=== PATIENT | male | born 1950 | race Caucasian/White ===

== ENCOUNTER 2016-06-29 12:34 | Inpatient (IN) ==
[2016-06-29] MEDS ORDERED: methylPREDNISolone SOD SUC 125 MG/2 ML VIAL IV STA (13:12)
[2016-06-29 13:35] LABS: Hematocrit 41.1 VOL% (42.0-52.0); Hemoglobin 14.3 GM/DL (14.0-18.0); Red Blood Count 4.49 MC/CUMM (3.8-5.5); White Blood Count 9.9 T/CUMM (4-12)
[2016-06-29 13:36] LABS: Basophils # 0.1 10*3/uL (0.0-0.2); Basophils % 0.8 % (0.0-0.8); Eosinophils # 0.5 10*3/uL (0.0-0.87); Eosinophils % 4.8 % (0.00-10.9); Immature Granulocytes % 0.4 %; Immature Granulocytes Absolute 0.04 #; Lymphocytes # 2.2 10*3/uL (1.4-4.0); Lymphocytes % 22.1 % (21.2-54.2); Mean Corpuscular HGB Conc 34.8 GM/DL (32-36); Mean Corpuscular Hemoglobin 32 PG (27-34); Mean Corpuscular Volume 91.5 FL (87-102); Mean Platelet Volume 9.2 FL (9.6-12.0); Monocytes % 10.1 % (1.7-12.7); Neutrophils # 6.1 10*3/uL (1.4-7.4); Neutrophils % 61.8 % (38.7-73.9); Platelet Count 269 T/CUMM (130-400); Red Cell Distribution Width 12.7 % (9.3-17.3)
--- NOTE | 2016-06-29 13:40 | CT Report ---
Referring physician: Garrison Richardson Exam: CT brain without contrast Date: June 29, 2016 Comparison: None Reason: Weakness The patient is an Emergency Department patient on June 29, 2016. Technique: Axial images of the head were obtained without the use of contrast. Total DLP was 914.6 mGy*cm. Findings: There is mild generalized cerebral atrophy/volume loss. A punctate cortical calcification is also noted at the right frontal lobe. No hydrocephalus or midline shift is present. There is no evidence of recent intracranial hemorrhage, abnormal mass effect or an acute infarction. No acute osseous process is seen. There is mild mucosal thickening within the left frontoethmoidal recess, ethmoid air cells, left sphenoid sinus and right maxillary sinus. The mastoid air cells are clear. Impression: 1. No acute intracranial process is identified. 2. Mild sinus disease. The CT exam was performed using one or more of the following dose reduction techniques: Automated exposure control and adjustment of the mA and/or kV according to patient size. PROCEDURE INTERPRETED AT [facility] DEPARTMENT OF RADIOLOGY Final Report Signed by: Dr. Martha Khalil
--- NOTE | 2016-06-29 13:41 | XRay Report ---
History short of breath Chest, 2 views Comparison 01/06/2010 The heart is mildly enlarged. Mediastinal and hilar contours unchanged There is slight increase in diffuse bilateral interstitial prominence without more focal consolidation. Vague symmetric nipple shadows again seen. Chronic right rib fracture again seen Impression: Slight increasing diffuse bilateral interstitial infiltrates versus edema. PROCEDURE INTERPRETED AT [facility] DEPARTMENT OF RADIOLOGY Final Report Signed by: Dr. Leonila Subramanian
[2016-06-29 14:05] LABS: Alanine Aminotransferase 21 U/L (16-61); Albumin 4.3 G/DL (3.4-5.0); Alkaline Phosphatase 92 U/L (45-117); Aspartate Amino Transferase 33 U/L (0-37); Bilirubin,Total < 0.39 MG/DL (0.2-1.0); Blood Urea Nitrogen 12 MG/DL (7-18); Calcium 9.6 MG/DL (8.5-10.1); Glucose 98 MG/DL (74-106); Osmolality,Calculated 252.4 MOS/KG (273-304); Sodium 126 MMOL/L (136-145); Total Protein 7.2 G/DL (6.4-8.3)
[2016-06-29] MEDS: ALBUTEROL 2.5 MG/3 ML NEB RESP TX SCH ×3 (14:05→14:42)
[2016-06-29 14:10] LABS: Troponin I Only 0.048 NG/ML (0.00-0.045)
--- NOTE | 2016-06-29 14:18 | EKG Report ---
Stationary ECG Study [facility] ER Test Date: 06/29/2016 2:16:40 PM Pat Name: MILA MIKE Department: Room: 223 Gender: M School Secretary: : 1950 Requested by: Garrison Sosa Order Number: [id number] Reading MD: ZAC MARRERO Intervals [place] Rate: 60 P: 60 MO: 238 QRS: -33 QRSD: 86 T: 55 QT: 410 QTc: 410 Interpretive Statements SINUS RHYTHM WITH PROLONGED MO INTERVAL MARKED LEFT AXIS DEVIATION ANTEROSEPTAL MYOCARDIAL INFARCTION, OF INDETERMINATE AGE Electronically Signed On 07-02-16 15:01:00 CDT by ZAC MARRERO [email or web address]
[2016-06-29] MEDS ORDERED: methylPREDNISolone SOD SUC 125 MG/2 ML VIAL ONE (14:46)
[2016-06-29 15:20] LABS: Apearance,Urine CLEAR (Clear); Bilirubin,Urine Negative (Negative); Blood, Urine Negative (Negative); Glucose,Urine (UA) Negative (Negative); Ketones,Urine Negative (Negative); Nitrite,Urine Negative (Negative); Protein,Urine Negative; RBC,Urine <1 /HPF (0-4); Urine Color Straw (Yellow); Urine Specific Gravity 1.004 (1.001-1.035); Urine Urobilinogen < 2.0 EU/DL (0.2-1.0)
--- NOTE | 2016-06-29 15:29 | Emergency Department Note ---
IJessica Hilary, am scribing for, and in the presence of, Ilya Richardson MD 13:19. IDylan Doug C, MD, personally performed the services described in this documentation, ascribed by Alexandria Lopez in my presence, and it is both accurate and complete 529 . Arrival - Arrival Chief Complaint: Non-Specific Stated Complaint: thinks pt may have had a stroke ED Nursing Triage Note: C/O BEING EVALUATED BY DR. HILL EARLIER TODAY., STATES told them to bring patient here to be evaluated by ED doctor to r/o CVA, Weakness for the last month, states got worse over the last week., denies having slurred speech, states his legs are weak bilateral , states his legs are hurting bilateral and his upper right arm is hurting , patient states he forgets alot., denies having slurred speech, he is having " slow thinking which is unusual for him" Mode of Arrival: Wheelchair Limitations: No Limitations Source: Patient, RN Notes Reviewed Time Seen by Provider: 06/29/16 13:12 - History of Present Illness HPI Narrative: Patient is a 66-year-old white male who presents to the emergency room complaining of weakness. Patient told me this been going on for the past month and is diffusely present. He does have some difficulty with his balance and his daughter says when he bends forward he tends to fall forward. Patient denies any lateralizing weakness or paresthesias and he denies any headaches or vision changes though he states his vision is bad in both his eyes. He says he does have a history of cataracts. Is not having any nausea or vomiting. He lives independently and takes care of himself and has been able to take care of his personal affairs. He states his daughter does bring him supper most every day and she does cook breakfast for him frequently. Onset (ago): week(s) Consistency: constant Severity: moderate Quality: aching Allergies/Adverse Reactions: Allergies Allergy/AdvReac Type Severity Reaction Status Date / Time No Known Allergies Allergy Verified 06/29/16 12:46 Home Medications: Home Medications Medication Instructions Recorded Confirmed Type Albuterol Sulfate [Ventolin Hfa] 90 gm IH BID 06/18/14 06/29/16 History Aspirin [Children's Aspirin] 81 mg PO DAILY 06/18/14 06/29/16 History Budesonide/Formoterol 160-4.5 2 puff INH BID 06/18/14 06/29/16 History [Symbicort 160-4.5] Diclofenac 1% Gel [Voltaren Gel] 1 applic TOP PRN PRN 06/18/14 06/29/16 History Losartan/Hydrochlorothiazide 1 each PO DAILY 06/18/14 06/29/16 History [Losartan-Hctz 100-25 mg Tab] Magnesium Chloride [Magnesium Dr] 64 mg PO BID 06/18/14 06/29/16 History NIFEdipine XL TAB [Procardia Xl] 60 mg PO BEDTIME 06/18/14 06/29/16 History PARoxetine [Paxil] 20 mg PO DAILY 06/18/14 06/29/16 History Rosuvastatin Calcium [Crestor] 5 mg PO DAILY 06/18/14 06/29/16 History clonazePAM [Clonazepam] 0.5 mg PO TID 06/18/14 06/29/16 History Albuterol/Ipratropium Neb [Duoneb] 3 ml RESP TX RT Q4H 06/29/16 06/29/16 History Indomethacin Cap [Indocin Cap] 25 mg PO QID PRN 06/29/16 06/29/16 History Metoprolol Tartrate Tab [Lopressor 25 mg PO DAILY 06/29/16 06/29/16 History Tab] Potassium Chloride 10 meq PO BID 06/29/16 06/29/16 History Theophylline ER Tab (24 Hr) 400 mg PO DAILY 06/29/16 06/29/16 History Review of System - Review of System 12 point system: reviewed and no additional remarkable complaints except as stated - Review of System Constitutional: Present: weakness (Generalized weakness) Eyes: Present: vision change (has cataracts) Respiratory: Present: wheezing (Nebulizer and breathing treatments at home) Cardiovascular: Present: chest pain (Discomfort) Musculoskeletal: Present: other (Arthritis, Gout) Neurological: Present: weakness (bilaterally in legs and arms), confusion ( forgetting things), other (Falling over when he bends down) Medical,Surgical,& Family Hx - Medical History Cardio: History of: Cardiac Dysrhythmia, Hypertension Psychological: History of: Anxiety Disorders Neurology: No history of: Seizures HEENT: History of: Eye Problem (CANNT SEE UP CLOSE) Rheumatology: History of;: Rheumatoid Arthritis (HANDS AND KNEES) Respiratory: History of: Asthma, Bronchitis, COPD, Respiratory Problems ( EMPHYZEMA) Musculoskeletal: History of: Back/Neck Problems, Musculoskeletal Problems ( NEUROPATHY) Hematology: History of: Anemia No history of: Blood Transfusion Reaction - Surgical History Cardiac Surgeries: Sugical HX of: Cardiac Catheterization (DR HILL) Abdominal Surgeries: Surgical HX of: Colonoscopy, EGD Orthopedic Surgeries: Surgical HX of;: Total Knee Replacement (RIGHT) - Family History Family History: Reports;: Family Cancer (AUNT), Family Diabetes (2 SISTERS), Family Heart Disease (PARENTS), Family Hypertension (PARENTS), Family Stroke ( SISTER) - Social History Smoking Status: Smoker, status unknown Frequency of Alcohol Use: None Type of Drug Use: None Exam Vital Signs: Vital Signs Temperature 97.5 F L 06/29/16 13:38 Pulse Rate 66 06/29/16 14:05 Respiratory Rate 20 06/29/16 14:05 Blood Pressure 146/61 06/29/16 13:38 O2 Sat by Pulse Oximetry 98 06/29/16 14:05 - General General appearance: alert, in no apparent distress - Head Head exam: Present: atraumatic, normocephalic - Eye Eye exam: Present: normal appearance, PERRL, EOMI - ENT ENT exam: Present: normal exam, normal oropharynx, mucous membranes moist. Absent: mucous membranes dry - Neck Neck exam: Present: full ROM, trachea midline. Absent: tenderness - Respiratory Respiratory exam: Present: wheezes (Bilaterally). Absent: normal lung sounds bilaterally - Cardiovascular Cardiovascular exam: Present: regular rate, normal rhythm, normal heart sounds. Absent: murmur, rubs, gallop - Abdominal Exam Abdominal exam: Present: soft, normal bowel sounds. Absent: distention - Extremities Exam Extremities exam: Present: full ROM. Absent: tenderness - Back Exam Back exam: Present: full ROM. Absent: tenderness - Neurological Exam Neurological exam: Present: alert, oriented X3, CN II-XII intact. Absent: motor sensory deficit - Psychiatric Psychiatric exam: Present: normal affect, normal mood - Skin Skin exam: Present: warm, dry, intact, normal color Course Course Narrative: Patient persisted having extra wheezes after 3 nebulized albuterol treatments. Patient was feeling much better but still dyspneic at rest. I discussed his clinical presentation and findings with Lj who is covering the hospitalist service. He will be evaluated here in the emergency room for hospitalization. Results - Labs CBC & BMP: 06/29/16 13:25 06/29/16 13:25 Lab Results: I have reviewed the patients labs Labs: Laboratory Tests 06/29/16 06/29/16 13:25 13:25 WBC 9.9 RBC 4.49 Hgb 14.3 Hct 41.1 L MPV 9.2 L Crawford # (Auto) 1.0 H Sodium 126 L Potassium 4.0 Chloride 92 L Carbon Dioxide 26 Calculated Osmolality 252.4 L Troponin I 0.048 H - EKG EKG results: interpreted by BESSIE, sinus rhythm (60 bpm), no acute changes - Diagnostic Findings Procedure: Chest x-ray: report reviewed by me (Slight increasing diffuse bilateral interstitial infiltrates versus edema), CT: report reviewed by me ( Head: 1. No acute intracranial process is identitfied. 2. Mild sinus disease) Disposition Clinical Impression: COPD exacerbation, Tobacco abuse Case discussed with: patient, patient's family Disposition: Still a Patient Condition: Stable Time of Disposition: 15:29
[2016-06-29] MEDS ORDERED: DICLOFENAC 1% GEL 100 GM TUBE TOP PRN (16:51)
[2016-06-29] MEDS ORDERED: INDOMETHACIN 25 MG CAPSULE PO PRN (16:51)
--- NOTE | 2016-06-29 17:02 | Hospitalist History & Physical ---
<Elena Marquez - Last Filed: 06/29/16 16:48> Assessment and Plan - Time spent with patient Time spent with patient: Greater than 30 minutes (1) Hypertension Status: Acute Assessment and plan: 66-year-old white male with history of asbestosis, hypertension, COPD, anxiety and depression admitted with COPD exacerbation and hyponatremia. Patient is being admitted by Dr. Leone from hospital medicine. Dr. Shabazz will be consulted from pulmonary as he is covering for Dr. Ramesh this weekend. Hypertension--we will restart patient's home meds. His blood pressure is normal at this time we will continue to monitor it. Hyponatremia--patient has normal kidney function. He does have pulmonary edema , Lasix has been started. His hyponatremia should improve with diuresis. Anxiety and depression--we will restart patient's home meds COPD exacerbation--patient will be started on antibiotics, Lasix, breathing treatments and steroids. Repeat an x-ray in the morning and adjust as needed. Elevated troponins--get another EKG in the morning and serial troponins. Will consult cardiology if needed. Patient is asymptomatic at this time. Tobacco abuse--patient have a nicotine patch and smoking cessation has been discussed with the patient All this is been discussed with Dr. Leone. Further recommendations to follow. Current Visit: Yes (2) Anxiety Status: Acute Current Visit: Yes (3) Hyponatremia with decreased serum osmolality Status: Acute Current Visit: Yes (4) COPD exacerbation Status: Acute Current Visit: Yes (5) Tobacco abuse Status: Acute Current Visit: Yes (6) Elevated troponin Status: Acute Current Visit: Yes History of Present Illness Chief complaint: Shortness of breath and weakness History of present illness: Mr. Sanon is a 66 year old male with history of hypertension, COPD, hyperlipidemia, and asbestosis presenting to the ED from Dr. Penn's office with shortness of breath and weakness. Patient states he has been feeling weak in the legs for the last several months that seems to be worsening over time. He has been falling a lot lately but he denies any injury. He also states that he has been having some chest pressure but none today. And bilateral upper and lower extremity generalized pain. Patient's family doctor is Dr. Mane and he sent patient to be evaluated by Dr. Penn who is his prototyper. Dr. Penn was the one who sent him to the ED for evaluation. They are wanting to rule out problems with his heart and CVA. Patient is also being followed by Dr. Ramesh and pulmonology for his asbestosis. Patient denies headache, dysphasia, chest pain, abdominal pain, constipation, diarrhea, or lower extremity edema. Patient's chest x-ray showing increasing diffuse bilateral interstitial infiltrates versus edema. His EKG is showing sinus rhythm with prolonged AK interval and a marked left left axis deviation with an anteroseptal myocardial infarction of indeterminate age. CT of his head showing no acute intracranial process with mild sinus disease. Upon exam patient is using accessory muscles for breathing. He is barrel chested and a pack a day smoker. He does have rales and expiratory wheeze bilaterally. His white count is normal but he is hyponatremic with a sodium of 126. He also has an elevated troponin of 0.048. I have discussed the patient's case with Dr. Ilya Richardson the ED physician and Dr. Leone the attending hospitalist. Patient is being admitted with COPD exacerbation and elevated troponins. Home Medications Medication Instructions Recorded Confirmed Type Albuterol Sulfate [Ventolin Hfa] 90 gm IH BID 06/18/14 06/29/16 History Aspirin [Children's Aspirin] 81 mg PO DAILY 06/18/14 06/29/16 History Budesonide/Formoterol 160-4.5 2 puff INH BID 06/18/14 06/29/16 History [Symbicort 160-4.5] Diclofenac 1% Gel [Voltaren Gel] 1 applic TOP PRN PRN 06/18/14 06/29/16 History Losartan/Hydrochlorothiazide 1 each PO DAILY 06/18/14 06/29/16 History [Losartan-Hctz 100-25 mg Tab] Magnesium Chloride [Magnesium Dr] 64 mg PO BID 06/18/14 06/29/16 History NIFEdipine XL TAB [Procardia Xl] 60 mg PO BEDTIME 06/18/14 06/29/16 History PARoxetine [Paxil] 20 mg PO DAILY 06/18/14 06/29/16 History Rosuvastatin Calcium [Crestor] 5 mg PO DAILY 06/18/14 06/29/16 History clonazePAM [Clonazepam] 0.5 mg PO TID 06/18/14 06/29/16 History Albuterol/Ipratropium Neb [Duoneb] 3 ml RESP TX RT Q4H 06/29/16 06/29/16 History Indomethacin Cap [Indocin Cap] 25 mg PO QID PRN 06/29/16 06/29/16 History Metoprolol Tartrate Tab [Lopressor 25 mg PO DAILY 06/29/16 06/29/16 History Tab] Potassium Chloride 10 meq PO BID 06/29/16 06/29/16 History Theophylline ER Tab (24 Hr) 400 mg PO DAILY 06/29/16 06/29/16 History Allergies Allergy/AdvReac Type Severity Reaction Status Date / Time No Known Allergies Allergy Verified 06/29/16 12:46 Medical,Surgical,& Family Hx - Medical History Cardio: History of: Cardiac Dysrhythmia, Hypertension Psychological: History of: Anxiety Disorders Neurology: No history of: Seizures HEENT: History of: Eye Problem (CANNT SEE UP CLOSE) Rheumatology: History of;: Rheumatoid Arthritis (HANDS AND KNEES) Respiratory: History of: Asthma, Bronchitis, COPD, Respiratory Problems ( EMPHYZEMA) Musculoskeletal: History of: Back/Neck Problems, Musculoskeletal Problems ( NEUROPATHY) Hematology: History of: Anemia No history of: Blood Transfusion Reaction - Surgical History Cardiac Surgeries: Sugical HX of: Cardiac Catheterization (DR PENN) Abdominal Surgeries: Surgical HX of: Colonoscopy, EGD Orthopedic Surgeries: Surgical HX of;: Total Knee Replacement (RIGHT) - Family History Family History: Reports;: Family Cancer (AUNT), Family Diabetes (2 SISTERS), Family Heart Disease (PARENTS), Family Hypertension (PARENTS), Family Stroke ( SISTER) - Social History Smoking Status: Smoker, status unknown Frequency of Alcohol Use: None Type of Drug Use: None Marital Status: Lives With:: Alone Functional capacity: independent ambulation Review of systems: Complete 10 system review of systems was obtained and pertinent negatives and positives are in HPI Exam - Constitutional Vitals: Period Temp Pulse Resp BP Sys/Moe Pulse Ox Last 24 Hr 97.5 F 60 18 146/61 98 Exam: 66-year-old pleasant white male, no acute distress, alert and oriented Daughter and granddaughter are present Constitutional System: No distress. No tremulousness. Head: Normocephalic, atraumatic. Ears, Nose and Throat System: No evidence of Otitis or Mastoiditis. No epistaxis or discharge Eyes System: Pupils equal, round, and reactive. Extraocular muscles intact. Neck: Supple, without adenopathy, No jugular venous distention. No thyromegaly, neck mass, or prior surgery apparent. Respiratory System: Chest bilateral rails and expiratory wheeze to auscultation. Cardiovascular System: Heart with regular rate and rhythm. 2/6 murmur. GI System: Abdomen soft, nontender. Normo active bowel sounds present. Musculoskeletal System: limbs with minimal pedal edema of left ankle. Full distal pulses. Neurological System: No discernable sensory deficit. No aphasia Psychiatric System: Conversation is rational Results - Labs CBC & BMP: 06/29/16 13:25 06/29/16 13:25 Lab Results: I have reviewed the past 24 hour labs - EKG EKG results: sinus rhythm - Diagnostic Findings Procedure: Chest x-ray: report reviewed by me (Slight increasing diffuse bilateral interstitial infiltrates versus edema) <Mu Leone - Last Filed: 06/29/16 18:09> History of Present Illness History of present illness: Patient seen and examined with JULIO Marquez. Agree with history, assessment and plan as documented. Patient reports that he already feels a little better. Will treat for COPD exacerbation, pna and volume overload. Exam - Constitutional Vitals: Period Temp Pulse Resp BP Sys/Moe Pulse Ox Last 24 Hr 97.1 F-97.5 F 60-73 18-20 146-147/61-62 98-99 Results - Labs CBC & BMP: 06/29/16 13:25 06/29/16 13:25
[2016-06-29] MEDS: LOSARTAN/HCTZ 50-12.5 MG TABLET PO SCH (17:09)
[2016-06-29] MEDS: PARoxetine 20 MG TABLET PO SCH (17:09)
[2016-06-29] MEDS: ASPIRIN CHEW 81 MG TABLET PO SCH (17:09)
[2016-06-29] MEDS: METOPROLOL TARTRATE 25 MG TABLET PO SCH (17:09)
[2016-06-29] MEDS: ROSUVASTATIN 10 MG TABLET PO SCH (17:09)
[2016-06-29] MEDS: THEOPHYLLINE ER (24 HR) 400 MG TABLET PO SCH (17:10)
[2016-06-29] MEDS ORDERED: methylPREDNISolone SOD SUC 40 MG/1 ML VIAL IV SCH (17:30)
[2016-06-29] MEDS: FUROSEMIDE 40 MG/4 ML VIAL IV SCH (17:44)
[2016-06-29 17:53] LABS: CKMB % 1.9 %; Troponin I Only 0.042 NG/ML (0.00-0.045)
[2016-06-29] MEDS: methylPREDNISolone SOD SUC 40 MG/1 ML VIAL IV SCH (17:58)
[2016-06-29] MEDS: ALBUTEROL/IPRATROPIUM 3 ML NEB RESP TX SCH ×2 (20:03→23:48)
[2016-06-29 20:47] LABS: CKMB % 1.8 %
[2016-06-29 20:48] LABS: Troponin I Only 0.049 NG/ML (0.00-0.045)
[2016-06-29] MEDS: POTASSIUM CHLORIDE 10 MEQ TABLET PO SCH (20:58)
[2016-06-29] MEDS: BUDESONIDE/FORMOTEROL 160-4.5 INHALER 6 GM INH SCH (20:58)
[2016-06-29] MEDS: MAGNESIUM CHLORIDE 64 MG TABLET PO SCH (20:58)
[2016-06-29] MEDS: clonazePAM 0.5 MG TABLET PO SCH (20:58)
[2016-06-29] MEDS ORDERED: ALBUTEROL 2.5 MG/3 ML NEB RESP TX SCH (21:00)
[2016-06-30 00:10] LABS: CKMB % 1.7 %; Troponin I Only 0.041 NG/ML (0.00-0.045)
[2016-06-30] MEDS: methylPREDNISolone SOD SUC 40 MG/1 ML VIAL IV SCH ×3 (02:09→18:33)
[2016-06-30 03:25] LABS: Eosinophils % 0.1 % (0.00-10.9); Hematocrit 38.8 VOL% (42.0-52.0); Hemoglobin 13.4 GM/DL (14.0-18.0); Immature Granulocytes % 0.5 %; Immature Granulocytes Absolute 0.04 #; Lymphocytes # 0.8 10*3/uL (1.4-4.0); Lymphocytes % 10.1 % (21.2-54.2); Mean Corpuscular HGB Conc 34.5 GM/DL (32-36); Mean Corpuscular Hemoglobin 32 PG (27-34); Mean Corpuscular Volume 91.7 FL (87-102); Mean Platelet Volume 9.3 FL (9.6-12.0); Monocytes # 0.2 10*3/uL (0.11-0.8); Monocytes % 2.7 % (1.7-12.7); Neutrophils # 6.4 10*3/uL (1.4-7.4); Neutrophils % 86.6 % (38.7-73.9); Platelet Count 271 T/CUMM (130-400); Red Blood Count 4.23 MC/CUMM (3.8-5.5); Red Cell Distribution Width 12.8 % (9.3-17.3); White Blood Count 7.4 T/CUMM (4-12)
[2016-06-30] MEDS: ALBUTEROL/IPRATROPIUM 3 ML NEB RESP TX SCH ×6 (04:21→23:51)
--- NOTE | 2016-06-30 08:18 | EKG Report ---
Stationary ECG Study [facility] Test Date: 06/30/2016 8:19:01 AM Pat Name: MILA MIKE Department: Room: 223 Gender: M Power Regulator: ANTONINA : 1950 Requested by: Elena Marquez Order Number: [id number] Reading MD: ROSEANN VELEZ Intervals [place] Rate: 86 P: 68 [place]: 214 QRS: -19 QRSD: 86 T: 52 QT: 343 QTc: 386 Interpretive Statements SINUS RHYTHM WITH PROLONGED [place] INTERVAL SEPTAL MYOCARDIAL INFARCTION, OF INDETERMINATE AGE Electronically Signed On 07-02-16 16:31:32 CDT by ROSEANN VELEZ [email or web address]
[2016-06-30] MEDS: FUROSEMIDE 40 MG/4 ML VIAL IV SCH ×2 (08:32→15:25)
[2016-06-30] MEDS: THEOPHYLLINE ER (24 HR) 400 MG TABLET PO SCH (08:32)
[2016-06-30] MEDS: ASPIRIN CHEW 81 MG TABLET PO SCH (08:33)
[2016-06-30] MEDS: clonazePAM 0.5 MG TABLET PO SCH ×3 (08:33→20:37)
[2016-06-30] MEDS: METOPROLOL TARTRATE 25 MG TABLET PO SCH (08:33)
[2016-06-30] MEDS: ROSUVASTATIN 10 MG TABLET PO SCH (08:33)
[2016-06-30] MEDS: LOSARTAN/HCTZ 50-12.5 MG TABLET PO SCH (08:33)
[2016-06-30] MEDS: PARoxetine 20 MG TABLET PO SCH (08:33)
[2016-06-30] MEDS: NICOTINE 21 MG/24 HR PATCH TRANSDERM SCH (08:34)
[2016-06-30] MEDS: MAGNESIUM CHLORIDE 64 MG TABLET PO SCH ×2 (08:34→20:36)
[2016-06-30] MEDS: POTASSIUM CHLORIDE 10 MEQ TABLET PO SCH ×2 (08:34→20:37)
[2016-06-30] MEDS: BUDESONIDE/FORMOTEROL 160-4.5 INHALER 6 GM INH SCH ×2 (08:36→20:37)
--- NOTE | 2016-06-30 08:48 | XRay Report ---
XR chest 2V Indication: Shortness of breath. Chest 2 views: Comparison yesterday shows stable mild reticular prominence of the lungs. No focal pneumonia shown. Pleural spaces remain clear. Heart size is normal with continued thoracic aortic tortuosity. Healing posterior right rib fracture dimension. Impression: No significant change. PROCEDURE INTERPRETED AT [facility] [place] DEPARTMENT OF RADIOLOGY Final Report Signed by: Salvatore Yates M.D.
--- NOTE | 2016-06-30 09:23 | Pulmonology Consult Note ---
History of Present Illness Chief complaint: Asbestosis. COPD with bronchospastic disease History of present illness: Mr. Sanon is a 66 year old white male whom I been asked to see in pulmonary consultation for evaluation and treatment. This patient is usually followed by Dr. Salvatore Ramesh who will take over his case on 07/02/2016. Patient was seen along with a female family member whom I think is his daughter. This patient appears to have an element of dementia. He is not a very good historian. The female family member who was present was of some help. Patient is also followed by Dr. Amari Penn. Biggest problem is been problems with the patient's balance she says she has been having some falls. His daughter says when he bends over and stands up that he falls and sometimes he nearly passes out. He has a chronic cough and dyspnea on exertion and this is about the same as usual, perhaps a little worse. He does not know what kind of sputum he is coughed up. He has not aware of any hemoptysis. Patient denies dysphagia or reflux. As best I can tell he has had no cardiac angina palpitations. He has not had anything that sounds like TIAs. Patient says he has trouble with his coordination. I asked him to be have any trouble lighting his cigarettes and he said no The remainder of the review of systems is negative. Allergies. None Home medicines. See below. Past history. Patient had a right pulmonary nodule that Dr. Tamia Hanson followed in the past. This was stable for several years on his CT scans of his chest. He has a history of asbestosis COPD bronchospastic disease. There is a history of cardiac rhythm high blood pressure and anxiety. Patient says he has rheumatoid arthritis in his hands and knees. He has a history of anemia. He had a history of a right total knee replacement. He has had a previous cardiac catheterization by Dr. Amari Penn. Social history this patient is a smoker who continues to smoke at least one pack of cigarettes per. He says he does not use alcohol. 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 He is a . Family history. Aunt had cancer 2 sisters had diabetes both parents had heart disease and high blood pressure. A sister had a stroke. Chest x-ray. 06/30/2016. Heart size is normal. Pulmonary arteries are upper limits of normal. Both hilar areas contain benign calcification. There is interstitial scarring superior to both hilar areas. Mediastinum is normal. Lung malloy show some scattered areas of alveolar filling and scarring in the right upper lung and the right lower lung and to a lesser degree in the left lower lung. There is an element of hyperinflation. I see no bony abnormality CT of the head. 06/29/2016. Generalized cortical atrophy with volume loss. No other abnormalities are seen. EKG. Regular sinus rhythm. Borderline first-degree AV block. Left anterior hemiblock. Poor anterior R-wave progression in V1, V2 and V3. Probable old anterior LA. No acute changes are noted. Lab. White count 7486.6 segs and 10 lymphs. Platelets are 271,000. H&H is 13.4/38.8 with normal indices and normal red blood cell distribution with. Sodium is low at 126. Potassium is 4.0 chloride is low at 92. Creatinine is 1.0. BUN is 12. Serum osmolality is low at 252. Liver function tests are normal CPK is elevated at 341. Troponins are negative. Protein albumin and globulin are normal. Urine shows no abnormalities. Home medicines. See below. Note the patient gets 25 mg of hydrochlorothiazide daily. He is on theophylline 400 mg once a day. Hospital medicines. See below. O2 sats on FiO2 28% have been measured at 93%, 96% and 99%. Physical exam. Vital signs. See below Psychiatric oriented. Terrible historian. Probably has an element of dementia. Face is symmetrical. Lips tongue. To be normal. Salivary glands are normal. Neck. Symmetrical with no masses. Thyroid was not palpated. Lymphatics. No submandibular cervical supraclavicular or epitrochlear adenopathy. Chest. Symmetrical. Barrel-shaped. Expiration is prolonged and he has end expiratory wheezes with congestion and forced expiration produces a cough. No chest wall tenderness. Heart. Regular at about 70 bpm. I cannot hear a murmur rub or gallop. Abdomen. Liver edge feels normal. No other organs were palpated. There was no tenderness. I heard bowel sounds. Extremities. No clubbing. Previous right total knee replaced Venous exam. Neck and upper extremities are normal. Slight tenderness with posterior pressure over both calves. Neurologic. Cranial nerves are intact with decreased hearing acuity. Long track motor functions intact. Gait was not tested. Sensory exam was not done. The remainder the physical exam is noncontributory. Impression. 1. COPD with bronchitis and bronchospasm 2. Tobacco abuse. 3. History of asbestosis. I did not see a lot of evidence of this on his chest x-ray 4. Multiple falls and poor coordination. Etiology undetermined. Look for orthostatic hypotension and other possibilities. Note hyponatremia 5. Hyponatremia with sodium of 126. Suspect this is related to diuretics. Consider other causes such as Joseph's disease 6. History of heart disease and history of cardiac arrhythmias 7. See past history Plan. 1. Cortrosyn stimulation test 2. Theophylline level 3. Sputum for Gram stain culture and sensitivity 4. Rocephin for bronchitis 5. Echocardiogram 6. Doppler venograms of lower extremities 7. ABGs on room 8. Inhalation therapy with DuoNeb's 4 times daily 9. See orders. BMP and a Home Medications Medication Instructions Recorded Confirmed Type Albuterol Sulfate [Ventolin Hfa] 90 gm IH BID 06/18/14 06/29/16 History Aspirin [Children's Aspirin] 81 mg PO DAILY 06/18/14 06/29/16 History Budesonide/Formoterol 160-4.5 2 puff INH BID 06/18/14 06/29/16 History [Symbicort 160-4.5] Diclofenac 1% Gel [Voltaren Gel] 1 applic TOP PRN PRN 06/18/14 06/29/16 History Losartan/Hydrochlorothiazide 1 each PO DAILY 06/18/14 06/29/16 History [Losartan-Hctz 100-25 mg Tab] Magnesium Chloride [Magnesium Dr] 64 mg PO BID 06/18/14 06/29/16 History NIFEdipine XL TAB [Procardia Xl] 60 mg PO BEDTIME 06/18/14 06/29/16 History PARoxetine [Paxil] 20 mg PO DAILY 06/18/14 06/29/16 History Rosuvastatin Calcium [Crestor] 5 mg PO DAILY 06/18/14 06/29/16 History clonazePAM [Clonazepam] 0.5 mg PO TID 06/18/14 06/29/16 History Albuterol/Ipratropium Neb [Duoneb] 3 ml RESP TX RT Q4H 06/29/16 06/29/16 History Indomethacin Cap [Indocin Cap] 25 mg PO QID PRN 06/29/16 06/29/16 History Metoprolol Tartrate Tab [Lopressor 25 mg PO DAILY 06/29/16 06/29/16 History Tab] Potassium Chloride 10 meq PO BID 06/29/16 06/29/16 History Theophylline ER Tab (24 Hr) 400 mg PO DAILY 06/29/16 06/29/16 History Allergies Allergy/AdvReac Type Severity Reaction Status Date / Time No Known Allergies Allergy Verified 06/29/16 12:46 Exam (Pulmonay) H&P - Constitutional Vitals: Period Temp Pulse Resp BP Sys/Moe Pulse Ox Last 24 Hr 97.1 F-98.8 F 60-82 18-22 109-147/57-68 93-100 Medical,Surgical,& Family Hx - Medical History Cardio: History of: Cardiac Dysrhythmia, Hypertension Psychological: History of: Anxiety Disorders Neurology: No history of: Seizures HEENT: History of: Eye Problem (CANNT SEE UP CLOSE) Rheumatology: History of;: Rheumatoid Arthritis (HANDS AND KNEES) Respiratory: History of: Asthma, Bronchitis, COPD, Respiratory Problems ( EMPHYZEMA) Musculoskeletal: History of: Back/Neck Problems, Musculoskeletal Problems ( NEUROPATHY) Hematology: History of: Anemia No history of: Blood Transfusion Reaction - Surgical History Cardiac Surgeries: Sugical HX of: Cardiac Catheterization (DR PENN) Abdominal Surgeries: Surgical HX of: Colonoscopy, EGD Orthopedic Surgeries: Surgical HX of;: Total Knee Replacement (RIGHT) - Family History Family History: Reports;: Family Cancer (AUNT), Family Diabetes (2 SISTERS), Family Heart Disease (PARENTS), Family Hypertension (PARENTS), Family Stroke ( SISTER) - Social History Smoking Status: Smoker, status unknown Frequency of Alcohol Use: None Type of Drug Use: None Results - Labs CBC & BMP: 06/30/16 03:07 06/29/16 13:25
[2016-06-30] MEDS ORDERED: cefTRIAXone 1,000 MG VIAL IV SCH (09:30)
[2016-06-30] MEDS ORDERED: COSYNTROPIN 0.25 MG VIAL IV ONE (10:00)
[2016-06-30] MEDS: cefTRIAXone 1,000 MG in SODIUM CHLORIDE 0.9% 100 ML IV SCH (10:12)
--- NOTE | 2016-06-30 10:39 | Ultrasound Report ---
US venous doppler LE BI Indication: Bilateral calf pain. BILATERAL LOWER EXTREMITY VENOUS ULTRASOUND Comparison: 01/06/2010 Findings: Graded grayscale compression, color Doppler and pulsed Doppler ultrasound evaluation of the venous structures performed. Normal compressibility, augmentation and color saturation is present within bilateral common femoral, superficial femoral, popliteal and proximal greater saphenous veins. Left popliteal cyst is present with internal septations, overall size 32 x 26 x 18 mm. Impression: No evidence of DVT either lower extremity. Left Lantigua's cyst. PROCEDURE INTERPRETED AT [facility] DEPARTMENT OF RADIOLOGY Final Report Signed by: Salvatore Yates M.D.
[2016-06-30 10:56] LABS: ABG HCO3 24.4 MMOL/L (20-26); ABG Oxygen Saturation 95.2 % (95-100); ABG PCO2 34.1 MM HG (35-48); ABG PH 7.444 (7.35-7.45); ABG PO2 73.2 MM HG (80-95); ABG TCO2 20.1 MMOL/L (23-27)
--- NOTE | 2016-06-30 13:17 | Hospitalist Progress Note ---
Assessment and Plan (1) COPD exacerbation Status: Acute Assessment and plan: Appreciate input from Dr. Peraza. Continue with nebulizer. Current Visit: Yes (2) Tobacco abuse Status: Chronic Current Visit: Yes (3) Hypertension Status: Chronic Current Visit: Yes Qualifiers: Hypertension type: essential hypertension Qualified Code(s): I10 - Essential (primary) hypertension (4) Hyponatremia with decreased serum osmolality Status: Acute Assessment and plan: BMP in a.m. Fluid restrict to a liter. Current Visit: Yes Hospitalist: Subjective Interval history: The patient is resting comfortably. Sitting up on the side of the bed no oxygen and place. Sats have been acceptable. However he does mention feeling a little short of breath at times. No fevers or chills. Exam - Constitutional Vitals: Period Temp Pulse Resp BP Sys/Moe Pulse Ox Last 24 Hr 97.1 F-98.8 F 60-95 18-22 109-147/57-68 93-100 General appearance: normal weight - Head Head exam: Present: normal inspection - Eye Eye exam: Present: EOMI - ENT ENT exam: Present: normal exam - Respiratory Respiratory exam: Present: clear to auscultation bilaterally - Cardiovascular Cardiovascular exam: Present: regular rate and rhythm - Neurological Exam Neurological exam: Present: alert, oriented X3 - Psychiatric Psychiatric exam: Present: normal affect Results - Labs CBC & BMP: 06/30/16 03:07 06/29/16 13:25
--- NOTE | 2016-06-30 17:44 | ECHO Report ---
Janes Sanon Exam Date: 06/30/2016 11:35 Referring Physician: Technologist: Abril Castle RDCS Age: 66 Ht (in): 61 Wt (lb): 137 Gender: M Exam Location: [facility] Echo Indications: Near syncope, Abestosis, COPD, Unspecified abnormalities of gait and mobility, Cough, Dyspnea, unspecified, Weakness, Nicotine dependence, cigarettes, uncomplicated BP: 119 / 57 HR: 82 Rhythm: Sinus Technical Quality: Good IMPRESSIONS Left ventricular ejection fraction is estimated at 70 %. Findings suggestive of left ventricular diastolic dysfunction. Mild - 2+ left ventricular hypertrophy. The right atrium is mildly enlarged. Mild atrial enlargement in apical view (elongated LA). Trace mitral valve regurgitation. Mitral valve sclerosis. Moderate to 3+ aortic valve stenosis, mean gradient 35 mmHg, RODRIGUEZ 1.8 cm. [id number]-[id number] aortic valve regurgitation. Trace to mild tricuspid valve regurgitation. Tricuspid regurgitation velocities suggest a PAP of 51 mmHg. MEASUREMENTS (Male / Female) Normal Values 2D ECHO LV Diastolic Diameter PLAX 4.1 cm 4.2 - 5.9 / 3.9 - 5.3 cm LV Systolic Diameter PLAX 1.8 cm LV Fractional Shortening PLAX 54.9 % IVS Diastolic Thickness 1.2 cm 0.6 - 1.0 / 0.6 - 0.9 cm LVPW Diastolic Thickness 1.1 cm 0.6 - 1.0 / 0.6 - 0.9 cm RV Internal Dim ED PLAX 3.1 cm Aortic Root Diameter 3.6 cm LA Systolic Diameter LX 2.9 cm 3.0 - 4.0 / 2.7 - 3.8 cm DOPPLER TR Peak Velocity 321.0 cm/s TR Peak Gradient 41.2 mmHg FINDINGS Left Ventricle Normal left ventricular cavity size. Mild - 2+ left ventricular hypertrophy. Left ventricular ejection fraction is estimated at 70 %.Findings suggestive of left ventricular diastolic dysfunction. Right Ventricle The right ventricle is normal in size and function. Right Atrium The right atrium is mildly enlarged. Left Atrium Mild atrial enlargement in apical view (elongated LA). Mitral Valve Mitral valve sclerosis. Trace mitral valve regurgitation. Aortic Valve Moderate aortic valve calcification. Moderate to 3+ aortic valve stenosis, mean gradient 35 mmHg, RODRIGUEZ 1.8 cm. Yvsk-yx-xbewfcje aortic valve regurgitation. Tricuspid Valve Morphologically normal tricuspid valve. Trace to mild tricuspid valve regurgitation. Tricuspid regurgitation velocities suggest a PAP of 51 mmHg. Pulmonic Valve Morphologically normal pulmonic valve without significant stenosis. There is no pulmonic regurgitation. Pericardium Normal pericardium without effusion. Aorta Normal ascending aorta dimension. Andre Kline MD (Electronically Signed) Final Date: 30 June 2016 17:44
[2016-07-01] MEDS: methylPREDNISolone SOD SUC 40 MG/1 ML VIAL IV SCH ×3 (01:33→17:54)
[2016-07-01] MEDS: ALBUTEROL/IPRATROPIUM 3 ML NEB RESP TX SCH ×6 (03:57→23:46)
[2016-07-01] MEDS ORDERED: COSYNTROPIN 0.25 MG VIAL IV ONE (04:00)
[2016-07-01 04:53] LABS: Calcium 9.7 MG/DL (8.5-10.1); Osmolality,Calculated 271.8 MOS/KG (273-304); Potassium 3.4 MMOL/L (3.5-5.1)
[2016-07-01] MEDS: FUROSEMIDE 40 MG/4 ML VIAL IV SCH (08:37)
[2016-07-01] MEDS: clonazePAM 0.5 MG TABLET PO SCH ×3 (08:37→21:55)
[2016-07-01] MEDS: ROSUVASTATIN 10 MG TABLET PO SCH (08:37)
[2016-07-01] MEDS: ASPIRIN CHEW 81 MG TABLET PO SCH (08:38)
[2016-07-01] MEDS: POTASSIUM CHLORIDE 10 MEQ TABLET PO SCH ×2 (08:38→21:55)
[2016-07-01] MEDS: LOSARTAN/HCTZ 50-12.5 MG TABLET PO SCH (08:38)
[2016-07-01] MEDS: METOPROLOL TARTRATE 25 MG TABLET PO SCH (08:38)
[2016-07-01] MEDS: THEOPHYLLINE ER (24 HR) 400 MG TABLET PO SCH (08:38)
[2016-07-01] MEDS: MAGNESIUM CHLORIDE 64 MG TABLET PO SCH ×2 (08:38→21:55)
[2016-07-01] MEDS: BUDESONIDE/FORMOTEROL 160-4.5 INHALER 6 GM INH SCH ×2 (08:39→21:55)
[2016-07-01] MEDS: NICOTINE 21 MG/24 HR PATCH TRANSDERM SCH (08:39)
[2016-07-01] MEDS: PARoxetine 20 MG TABLET PO SCH (08:39)
[2016-07-01 08:56] LABS: Alanine Aminotransferase 21 U/L (16-61); Albumin 4.2 G/DL (3.4-5.0); Alkaline Phosphatase 78 U/L (45-117); Aspartate Amino Transferase 33 U/L (0-37); Bilirubin,Total < 0.39 MG/DL (0.2-1.0); Blood Urea Nitrogen 44 MG/DL (7-18); Calcium 9.5 MG/DL (8.5-10.1); Glucose 126 MG/DL (74-106); Magnesium 2.1 MG/DL (1.8-2.4); Osmolality,Calculated 269.1 MOS/KG (273-304); Potassium 3.9 MMOL/L (3.5-5.1); Sodium 128 MMOL/L (136-145); Total Protein 7.3 G/DL (6.4-8.3)
--- NOTE | 2016-07-01 09:36 | Pulmonology Progress Note ---
Pulmonary - PN: Subj Interval history: This is a 66-year-old white male patient of Dr. Salvatore Montes. I saw this patient in pulmonary consultation on 06/30/2016. My impressions were. 1. COPD with bronchitis and bronchospasm 2. Tobacco abuse. 3. History of asbestosis. I did not see a lot of evidence of this on his chest x-ray 4. Multiple falls and poor coordination. Etiology undetermined. Look for orthostatic hypotension and other possibilities. Note hyponatremia 5. Hyponatremia with sodium of 126. Suspect this is related to diuretics. Consider other causes such as [place]'s disease 6. History of heart disease and history of cardiac arrhythmias 7. See past history 07/01/2016. Patient says his breathing is much better. Doppler venograms done 06/29/2016 showed no evidence of deep venous thrombophlebitis. Echocardiogram done 06/29/2016 showed ejection fraction of 70%. Right atrium and left atrium was slightly enlarged. There was +3 aortic valve stenosis with a mean gradient of 35 mmHg and aortic valve area of 1.8 cm. There was also mild to moderate aortic valve regurgitation. Cortrosyn stimulation test was ordered for today. Lab called and said they do not have personnel available to do it today but will do it on Saturday. Sodium is 128. Potassium is 3.4. Creatinine has gone from 1.0-1.9 with a BUN of 44 theophylline level is 10.1. Will repeat BMP tomorrow morning. May need renal consultation. Physical exam. Vital signs. See below Psychiatric. Oriented 3. Talkative. Neck. Symmetrical. No meningismus. Lymphatics. No submandibular cervical supraclavicular or epitrochlear adenopathy Chest. Barrel-shaped. Prolonged expiration. End expiratory wheezes and congestion which have improved compared to 07/01/2016 exam Heart. I cannot hear a murmur or gallop Abdomen. Nontender. Extremities. No edema no deep venous thrombophlebitis Neurologic. Cranial nerves are intact with decreased hearing acuity. Long track motor functions intact. Gait was not tested The remainder the physical exam is negative Plan. 1. Cortrosyn stimulation test 2. Theophylline level 3. Sputum for Gram stain culture and sensitivity 4. Rocephin for bronchitis 5. Echocardiogram 6. Doppler venograms of lower extremities 7. ABGs on room 8. Inhalation therapy with DuoNeb's 4 times daily 9. See orders. BMP and a Home Medications #10. 07/01/2016. See today's note. Acute renal failure. Aortic stenosis. Consider renal consultation. Consider cardiology consultation. Dr. Ramesh will take over tomorrow. Exam (Progress Note) - Constitutional Vitals: Period Temp Pulse Resp BP Sys/Moe Pulse Ox Last 24 Hr 97.1 F-99.5 F 79-99 18-23 102-129/52-58 91-100 Results - Labs CBC & BMP: 06/30/16 03:07 07/01/16 08:08
[2016-07-01] MEDS: cefTRIAXone 1,000 MG in SODIUM CHLORIDE 0.9% 100 ML IV SCH (09:39)
--- NOTE | 2016-07-01 10:18 | Hospitalist Progress Note ---
Assessment and Plan - Time spent with patient Time spent with patient: Less than 30 minutes (1) COPD exacerbation Status: Acute Assessment and plan: Continue nebulizers and ABT as previously ordered. Current Visit: Yes (2) Hyponatremia with decreased serum osmolality Status: Acute Assessment and plan: Renal function less than favorable; BUN -42; Creatinine- 1.80; noted increase from 12/1.0 at admission on 4.7. Sodium remains low; 130 today; no significant changes. Will consult Renal to evaluate. Current Visit: Yes (3) Hypertension Status: Chronic Assessment and plan: Blood pressures stable; continue with current management regimen. Current Visit: Yes Qualifiers: Hypertension type: essential hypertension Qualified Code(s): I10 - Essential (primary) hypertension Hospitalist: Subjective Interval history: Patient seen and examined. No significant overnight issues. Patient states " I feel better". Exam - Constitutional Vitals: Period Temp Pulse Resp BP Sys/Moe Pulse Ox Last 24 Hr 97.1 F-99.5 F 79-99 18-23 102-129/52-58 91-100 General appearance: normal weight, no acute distress - Head Head exam: Present: normal inspection, normocephalic, atraumatic - Eye Eye exam: Present: EOMI. Absent: conjunctival injection, nystagmus, periorbital swelling, scleral icterus Pupils: Present: DOMINICK, normal accommodation - ENT ENT exam: Present: normal exam - Neck Neck exam: Present: normal inspection. Absent: lymphadenopathy, meningismus, tenderness, thyromegaly - Respiratory Respiratory exam: Present: decreased breath sounds. Absent: rales, rhonchi, stridor, wheezes - Cardiovascular Cardiovascular exam: Present: regular rate and rhythm. Absent: carotid bruit, diastolic murmur, gallop, JVD, rubs, systolic murmur - GI/Abdominal GI/Abdominal exam: Present: normal bowel sounds, soft. Absent: firm, guarding, tenderness - Extremities Exam Extremities exam: Present: normal inspection, full ROM. Absent: edema - Back Exam Back exam: Present: normal inspection - Neurological Exam Neurological exam: Present: alert, oriented X3 - Psychiatric Psychiatric exam: Present: normal affect, normal mood - Skin Skin exam: Present: normal color, warm, dry Results - Labs CBC & BMP: 06/30/16 03:07 07/01/16 08:08 Lab Results: I have reviewed the past 24 hour labs
--- NOTE | 2016-07-01 11:10 | Nephrology Consult Note ---
History of Present Illness Chief complaint: ARF History of present illness: Mr. Sanon is a 66 year old male who presented to the emergency room with weakness and shortness of breath with underlying diagnosis of asbestosis. He had a creatinine of 1 2 days ago and currently has a creatinine 1.8. Since she has been here he is had Lasix 40 mg twice a day and has continued to take his losartan HCTZ. Blood pressures are running in the 100-110 systolic range. He is up and walking and in no distress. He says he has been taking the losartan/HCTZ combination at home for some time. Another problem is significant varicose veins of the left leg with chronic swelling of the left leg due to that. Echocardiograms demonstrated pulmonary hypertension with systolic pressures of 50. He has good left ventricular function. Physical exam he is in no distress his chest is clear he is up walking about and doing well. Abdomen is soft nontender extremities with significant varicose veins on the left leg 1+ edema is noted there. Chest x-ray is without significant volume overload. Impression acute renal failure likely related to his diuresis and DAVID inhibition. His mild hyponatremia may be related to his chronic thiazide use. Plan we will hold the losartan/HCTZ and hold his Lasix for now and follow his response to that. Home Medications Medication Instructions Recorded Confirmed Type Albuterol Sulfate [Ventolin Hfa] 90 gm IH BID 06/18/14 06/29/16 History Aspirin [Children's Aspirin] 81 mg PO DAILY 06/18/14 06/29/16 History Budesonide/Formoterol 160-4.5 2 puff INH BID 06/18/14 06/29/16 History [Symbicort 160-4.5] Diclofenac 1% Gel [Voltaren Gel] 1 applic TOP PRN PRN 06/18/14 06/29/16 History Losartan/Hydrochlorothiazide 1 each PO DAILY 06/18/14 06/29/16 History [Losartan-Hctz 100-25 mg Tab] Magnesium Chloride [Magnesium Dr] 64 mg PO BID 06/18/14 06/29/16 History NIFEdipine XL TAB [Procardia Xl] 60 mg PO BEDTIME 06/18/14 06/29/16 History PARoxetine [Paxil] 20 mg PO DAILY 06/18/14 06/29/16 History Rosuvastatin Calcium [Crestor] 5 mg PO DAILY 06/18/14 06/29/16 History clonazePAM [Clonazepam] 0.5 mg PO TID 06/18/14 06/29/16 History Albuterol/Ipratropium Neb [Duoneb] 3 ml RESP TX RT Q4H 06/29/16 06/29/16 History Indomethacin Cap [Indocin Cap] 25 mg PO QID PRN 06/29/16 06/29/16 History Metoprolol Tartrate Tab [Lopressor 25 mg PO DAILY 06/29/16 06/29/16 History Tab] Potassium Chloride 10 meq PO BID 06/29/16 06/29/16 History Theophylline ER Tab (24 Hr) 400 mg PO DAILY 06/29/16 06/29/16 History Allergies Allergy/AdvReac Type Severity Reaction Status Date / Time No Known Allergies Allergy Verified 06/29/16 12:46 Medical,Surgical,& Family Hx - Medical History Cardio: History of: Cardiac Dysrhythmia, Hypertension Psychological: History of: Anxiety Disorders Neurology: No history of: Seizures HEENT: History of: Eye Problem (CANNT SEE UP CLOSE) Rheumatology: History of;: Rheumatoid Arthritis (HANDS AND KNEES) Respiratory: History of: Asthma, Bronchitis, COPD, Respiratory Problems ( EMPHYZEMA) Musculoskeletal: History of: Back/Neck Problems, Musculoskeletal Problems ( NEUROPATHY) Hematology: History of: Anemia No history of: Blood Transfusion Reaction - Surgical History Cardiac Surgeries: Sugical HX of: Cardiac Catheterization (DR HILL) Abdominal Surgeries: Surgical HX of: Colonoscopy, EGD Orthopedic Surgeries: Surgical HX of;: Total Knee Replacement (RIGHT) - Family History Family History: Reports;: Family Cancer (AUNT), Family Diabetes (2 SISTERS), Family Heart Disease (PARENTS), Family Hypertension (PARENTS), Family Stroke ( SISTER) - Social History Smoking Status: Smoker, status unknown Frequency of Alcohol Use: None Type of Drug Use: None Review of Systems 12 point system: reviewed and no additional remarkable complaints except as stated Exam - Vital Signs Vital signs: Period Temp Pulse Resp BP Sys/Moe Pulse Ox Last 24 Hr 97.1 F-99.5 F 79-99 18-23 102-129/52-58 91-100 - General Appearance General appearance: well-developed, well-nourished, appears started age EENT: ATNC Neck: no JVD, no thyromegaly, no carotid bruit, supple Respiratory: no kyphosis, no scoliosis Cardiology: no murmurs, no rub, no gallops, no edema, regular rate, regular rhythm, normal S1, normal S2 Gastrointestinal: normoactive bowel sounds Integumentary: no rash, warm and dry Neurologic: no focal deficit, no asterixis, alert and oriented x3, reflexes 2+ and symmetric, gait normal, strength 5/5 Musculoskeletal: no deformities, no erythema, no cyanosis, no clubbing Psychiatric: mood/affect appropriate (prominent varicosities left leg), cooperative Results - Labs CBC & BMP: 06/30/16 03:07 07/01/16 08:08 Assessment and Plan (1) ARF (acute renal failure) Status: Acute Assessment and plan: Hold diuretics and Losartan Current Visit: Yes Specialty Discharge - Follow Up or Referrals - Speciality Discharge Instructions Nephrology Instructions: Will hold his diuretics and losartan.
--- NOTE | 2016-07-01 12:54 | Ultrasound Report ---
US renal Bilateral Indication: Renal failure. RENAL ULTRASOUND: Grayscale and color Doppler imaging the kidneys performed. Right kidney measures 88 x 42 x 40 mm. Left kidney measures 88 x 44 x 45 mm. No hydronephrosis, mass, cyst or calcification identified on either side. Color Doppler flow at both renal vu documented. Prominent bilateral columns of Gregg present. Impression: Negative ultrasound the kidneys. PROCEDURE INTERPRETED AT [facility] DEPARTMENT OF RADIOLOGY Final Report Signed by: Salvatore Yates M.D.
[2016-07-02] MEDS: methylPREDNISolone SOD SUC 40 MG/1 ML VIAL IV SCH ×3 (02:46→16:24)
[2016-07-02] MEDS: ALBUTEROL/IPRATROPIUM 3 ML NEB RESP TX SCH ×6 (03:25→23:59)
[2016-07-02 06:00] LABS: Hematocrit 35.5 VOL% (42.0-52.0); Hemoglobin 12.3 GM/DL (14.0-18.0); Lymphocytes % 4.8 % (21.2-54.2); Mean Corpuscular HGB Conc 34.6 GM/DL (32-36); Mean Corpuscular Hemoglobin 32 PG (27-34); Mean Corpuscular Volume 91.7 FL (87-102); Mean Platelet Volume 9.7 FL (9.6-12.0); Monocytes % 4.5 % (1.7-12.7); Neutrophils % 89.8 % (38.7-73.9); Platelet Count 275 T/CUMM (130-400); Red Blood Count 3.87 MC/CUMM (3.8-5.5); Red Cell Distribution Width 13.2 % (9.3-17.3); White Blood Count 14.5 T/CUMM (4-12)
[2016-07-02 06:01] LABS: Basophils % 0.1 % (0.0-0.8); Immature Granulocytes % 0.8 %; Immature Granulocytes Absolute 0.12 #; Lymphocytes # 0.7 10*3/uL (1.4-4.0); Monocytes # 0.7 10*3/uL (0.11-0.8)
[2016-07-02 06:29] LABS: Lymphocytes 2 % (20-55); Platelet Estimate Adequate; Segmented Neutrophils 92 % (50-85); Total Cells Counted 100
[2016-07-02 06:30] LABS: Hypochromasia 1+
[2016-07-02 06:40] LABS: Albumin 3.7 G/DL (3.4-5.0); Bilirubin,Total 0.4 MG/DL (0.2-1.0); Calcium 9.3 MG/DL (8.5-10.1); Magnesium 2.4 MG/DL (1.8-2.4); Osmolality,Calculated 282.7 MOS/KG (273-304); Phosphorous 3.9 MG/DL (2.5-4.9); Potassium 3.5 MMOL/L (3.5-5.1); Total Protein 6.2 G/DL (6.4-8.3)
[2016-07-02] MEDS: POTASSIUM CHLORIDE 10 MEQ TABLET PO SCH ×2 (08:39→20:47)
[2016-07-02] MEDS: MAGNESIUM CHLORIDE 64 MG TABLET PO SCH ×2 (08:39→20:47)
[2016-07-02] MEDS: PARoxetine 20 MG TABLET PO SCH (08:39)
[2016-07-02] MEDS: clonazePAM 0.5 MG TABLET PO SCH ×3 (08:39→20:47)
[2016-07-02] MEDS: METOPROLOL TARTRATE 25 MG TABLET PO SCH (08:39)
[2016-07-02] MEDS: ROSUVASTATIN 10 MG TABLET PO SCH (08:39)
[2016-07-02] MEDS: NICOTINE 21 MG/24 HR PATCH TRANSDERM SCH (08:40)
[2016-07-02] MEDS: THEOPHYLLINE ER (24 HR) 400 MG TABLET PO SCH (08:40)
[2016-07-02] MEDS: cefTRIAXone 1,000 MG in SODIUM CHLORIDE 0.9% 100 ML IV SCH (08:41)
[2016-07-02] MEDS: BUDESONIDE/FORMOTEROL 160-4.5 INHALER 6 GM INH SCH ×2 (08:41→20:47)
--- NOTE | 2016-07-02 08:57 | XRay Report ---
Portable chest Date: 07/02/2016 Clinical history: COPD Comparison: 06/30/2016 Technique: Portable AP sitting chest Findings: The heart is normal in size with calcification in the aortic knob. Calcified granulomata with chronic scarring. Stable mediastinum and osseous structures. Old healed rib fractures noted. Impression: No significant change in the appearance in the chest when compared to the previous exam. PROCEDURE INTERPRETED AT [facility] Final Report Signed by: Dr. Kalyani Galvin
--- NOTE | 2016-07-02 09:42 | Nephrology Progress Note ---
Nephrology - PN: Subj Interval history: Mr. Sanon is seen in follow-up of his acute renal impairment. His blood pressure remains low and we have stopped losartan/HCTZ along with Lasix. Creatinine is risen slightly but he did receive those medicines yesterday. His chest is clear and he is not short of breath. Plan is to check creatinine tomorrow and hopefully it will have been going to fall. His serum sodium is rising at 131. Exam (PN)-Nephrology - Vital Signs Vital signs: Period Temp Pulse Resp BP Sys/Moe Pulse Ox Last 24 Hr 97.8 F-99.1 F 74-107 15-22 98-123/54-58 90-99 - Lab 07/02/16 05:14 07/02/16 05:14 Most recent lab results ABG pH 7.444 (7.35-7.45) 06/30/16 10:56 ABG pCO2 34.1 MM HG (35-48) L 06/30/16 10:56 ABG pO2 73.2 MM HG (80-95) L 06/30/16 10:56 ABG HCO3 24.4 MMOL/L (20-26) 06/30/16 10:56 ABG O2 Saturation 95.2 % (95-100) 06/30/16 10:56 Calcium 9.3 MG/DL (8.5-10.1) 07/02/16 05:14 Phosphorus 3.9 MG/DL (2.5-4.9) 07/02/16 05:14 Magnesium 2.4 MG/DL (1.8-2.4) 07/02/16 05:14 Assessment and Plan (1) ARF (acute renal failure) Status: Acute Assessment and plan: Hold diuretics and Losartan Current Visit: Yes
[2016-07-02] MEDS: ASPIRIN CHEW 81 MG TABLET PO SCH (11:46)
--- NOTE | 2016-07-02 12:30 | Hospitalist Progress Note ---
Assessment and Plan (1) Tremor Status: Acute Current Visit: Yes (2) COPD exacerbation Status: Acute Current Visit: Yes (3) Tobacco abuse Status: Chronic Current Visit: Yes (4) Hypertension Status: Chronic Current Visit: Yes Qualifiers: Hypertension type: essential hypertension Qualified Code(s): I10 - Essential (primary) hypertension (5) Anxiety Status: Chronic Current Visit: Yes (6) Hyponatremia with decreased serum osmolality Status: Acute Current Visit: Yes (7) ARF (acute renal failure) Status: Acute Current Visit: Yes Hospitalist: Subjective Interval history: Patient reports that his breathing is better today. He does report an upper and lower extremity tremor which is worsened this morning. He reports that this has been occurring intermittently for over a month and it sometimes causes him to fall. Will consult neurology for assistance. ILIANA is only slightly worsened today , nephrology following, holding lasix and losartan. Exam - Constitutional Vitals: Period Temp Pulse Resp BP Sys/Moe Pulse Ox Last 24 Hr 98.2 F-99.1 F 74-107 14-22 98-123/54-58 90-98 General appearance: normal weight - Head Head exam: Present: normocephalic, atraumatic - Eye Eye exam: Present: EOMI Pupils: Present: DOMINICK - ENT ENT exam: Present: normal exam - Neck Neck exam: Present: normal inspection - Respiratory Respiratory exam: Present: clear to auscultation bilaterally, wheezes. Absent: rhonchi - Cardiovascular Cardiovascular exam: Present: regular rate and rhythm - GI/Abdominal GI/Abdominal exam: Present: normal bowel sounds - Extremities Exam Extremities exam: Present: normal inspection - Back Exam Back exam: Present: normal inspection - Neurological Exam Neurological exam: Present: alert, other (visible bilateral upper and lower extremity tremor) - Psychiatric Psychiatric exam: Present: normal affect, normal mood - Skin Skin exam: Present: warm, intact Results - Labs CBC & BMP: 07/02/16 05:14 07/02/16 05:14
--- NOTE | 2016-07-02 12:42 | Pulmonology Progress Note ---
Pulmonary - PN: Subj Interval history: Patient is a 66-year-old white man that has COPD but apparently came in Saturday because he was having some weakness and was felt to need a neurological workup. He has been found to have some renal insufficiency and hyponatremia. He does have shortness of breath but his COPD is not terrible. He says his breathing is doing okay today. His sodium has been on the low side. His renal function was worse and his medicines have been adjusted. He does not seem to be too terribly short of breath at present. Exam (Progress Note) - Constitutional Vitals: Period Temp Pulse Resp BP Sys/Moe Pulse Ox Last 24 Hr 98.2 F-99.3 F 74-107 14-23 98-123/53-72 90-98 General appearance: normal weight, no acute distress - Head Head exam: Present: normal inspection, normocephalic - Eye Eye exam: Present: EOMI. Absent: scleral icterus Pupils: Present: DOMINICK - ENT ENT exam: Present: normal exam - Neck Neck exam: Present: normal inspection. Absent: lymphadenopathy, thyromegaly - Respiratory Respiratory exam: Present: decreased breath sounds, rhonchi - Cardiovascular Cardiovascular exam: Present: regular rate and rhythm. Absent: gallop, systolic murmur - GI/Abdominal GI/Abdominal exam: Present: normal bowel sounds, soft. Absent: organomegaly, tenderness - Extremities Exam Extremities exam: Absent: calf tenderness, edema - Neurological Exam Neurological exam: Present: alert, oriented X3, abnormal gait (He has had some difficulty walking.), CN II-XII intact - Psychiatric Psychiatric exam: Present: normal affect, normal mood - Skin Skin exam: Present: warm, dry Results - Labs CBC & BMP: 07/02/16 05:14 07/02/16 05:14 - Diagnostic Findings Procedure: Chest x-ray: image reviewed by me, report reviewed by me (Chest x- ray shows COPD changes but looks clear) Assessment and Plan (1) COPD exacerbation Status: Acute Assessment and plan: Patient has COPD but is doing relatively well at present. He will continue with his bronchodilator therapy. Current Visit: Yes (2) Tobacco abuse Status: Chronic Assessment and plan: He certainly needs to stay off cigarettes. Current Visit: Yes (3) Hypertension Status: Chronic Assessment and plan: His blood pressures been on the low side and his medicines adjusted. Current Visit: Yes Qualifiers: Hypertension type: essential hypertension Qualified Code(s): I10 - Essential (primary) hypertension (4) Hyponatremia with decreased serum osmolality Status: Acute Assessment and plan: His sodium is around 130-132 range. Current Visit: Yes (5) ARF (acute renal failure) Status: Acute Assessment and plan: His creatinine is up to 2.1 and his medicines were stopped. Current Visit: Yes (6) Tremor Status: Acute Assessment and plan: He has had some weakness of his legs and tremor and he may need a neurological workup. Current Visit: Yes
--- NOTE | 2016-07-02 13:57 | Physician Query Form ---
CLICK EDIT DOCUMENT TO SELECT QUERY ANSWER --> OK --> SIGN Margarita Flower RN Clinical Vice President Tax W) [phone] (f) [phone] [email or web address] PROVIDERS: Make your selection(s) from the choices in EACH section by typing an "x" and enter comments in the comment section. Please use your independent medical judgment in providing your response. This request does not imply that any particular answer is desired or expected. CLINICAL INDICATORS: (Providers should not edit this section) Based on documentation of "Acute COPD exacerbation" "Bronchospastic disease" "upon exam pt is using accessory muscles for breathing" "he is barrel chested and a pack a day smoker" Respiration recorded as high as 23. O2 @2L NC applied. If possible, please further clarify the type and acuity of respiratory diagnosis : ACUITY: ( ) Acute ( ) Chronic (x ) Acute on Chronic TYPE: ( ) Respiratory failure with hypoxia ( ) Respiratory failure with hypercapnia ( ) Respiratory Arrest ( ) Postprocedural/postoperative respiratory failure ( ) ARDS (Adult/Acute Respiratory Distress Syndrome) (x ) Other, please specify: Respiratory Distress ( ) Clinically unable to determine Recognized criteria for respiratory failure PH <7.35 or >7.45 PO2 <60 PCO2 >50 RR >24 O2 Sat <90% on RA or <95% on O2 Use of accessory muscles Unable to speak in full sentences Intubation is not required COMMENTS: Use of terms such as suspected, likely, or probable (associated with a specific diagnosis that is being evaluated, monitored, or treated as if it exists) are acceptable and can be restated in the discharge summary if not ruled out. MTDD
--- NOTE | 2016-07-02 18:29 | Neurology Consult Note ---
History of Present Illness History of present illness: Mr. Sanon is a 66 year old gentleman with history of hypertension , COPD, hyperlipidemia, and asbestosis presenting to the ED from Dr. Penn's office with shortness of breath and weakness. Patient states he has been feeling weak in the legs for the last several months that seems to be worsening over time. He reported that he primarily has pain both lower extremities at knees. He has been falling a lot lately but he denies any injury. He also states that he has been having some chest pressure. And bilateral upper and lower extremity generalized pain. Patient denies headache, dysphasia, chest pain, abdominal pain, constipation, diarrhea, or lower extremity edema. Patient 's chest x-ray showing increasing diffuse bilateral interstitial infiltrates versus edema. His EKG is showing sinus rhythm with prolonged CA interval and a marked left left axis deviation with an anteroseptal myocardial infarction of indeterminate age. CT of his head showing no acute intracranial process with mild sinus disease. His white count is normal but he is hyponatremic with a sodium of 126. He also has an elevated troponin of 0.048. There is also questionable tremors. Patient reported that at times he shakes. No constant tremors reported. Whenever he shakes it is primarily upon action. Home Medications Medication Instructions Recorded Confirmed Type Albuterol Sulfate [Ventolin Hfa] 90 gm IH BID 06/18/14 06/29/16 History Aspirin [Children's Aspirin] 81 mg PO DAILY 06/18/14 06/29/16 History Budesonide/Formoterol 160-4.5 2 puff INH BID 06/18/14 06/29/16 History [Symbicort 160-4.5] Diclofenac 1% Gel [Voltaren Gel] 1 applic TOP PRN PRN 06/18/14 06/29/16 History Losartan/Hydrochlorothiazide 1 each PO DAILY 06/18/14 06/29/16 History [Losartan-Hctz 100-25 mg Tab] Magnesium Chloride [Magnesium Dr] 64 mg PO BID 06/18/14 06/29/16 History NIFEdipine XL TAB [Procardia Xl] 60 mg PO BEDTIME 06/18/14 06/29/16 History PARoxetine [Paxil] 20 mg PO DAILY 06/18/14 06/29/16 History Rosuvastatin Calcium [Crestor] 5 mg PO DAILY 06/18/14 06/29/16 History clonazePAM [Clonazepam] 0.5 mg PO TID 06/18/14 06/29/16 History Albuterol/Ipratropium Neb [Duoneb] 3 ml RESP TX RT Q4H 06/29/16 06/29/16 History Indomethacin Cap [Indocin Cap] 25 mg PO QID PRN 06/29/16 06/29/16 History Metoprolol Tartrate Tab [Lopressor 25 mg PO DAILY 06/29/16 06/29/16 History Tab] Potassium Chloride 10 meq PO BID 06/29/16 06/29/16 History Theophylline ER Tab (24 Hr) 400 mg PO DAILY 06/29/16 06/29/16 History Allergies Allergy/AdvReac Type Severity Reaction Status Date / Time No Known Allergies Allergy Verified 06/29/16 12:46 12 point system: reviewed and no additional remarkable complaints except as stated Medical,Surgical,& Family Hx - Medical History Cardio: History of: Cardiac Dysrhythmia, Hypertension Psychological: History of: Anxiety Disorders Neurology: No history of: Seizures HEENT: History of: Eye Problem (CANNT SEE UP CLOSE) Rheumatology: History of;: Rheumatoid Arthritis (HANDS AND KNEES) Respiratory: History of: Asthma, Bronchitis, COPD, Respiratory Problems ( EMPHYZEMA) Musculoskeletal: History of: Back/Neck Problems, Musculoskeletal Problems ( NEUROPATHY) Hematology: History of: Anemia No history of: Blood Transfusion Reaction - Surgical History Cardiac Surgeries: Sugical HX of: Cardiac Catheterization (DR PENN) Abdominal Surgeries: Surgical HX of: Colonoscopy, EGD Orthopedic Surgeries: Surgical HX of;: Total Knee Replacement (RIGHT) - Family History Family History: Reports;: Family Cancer (AUNT), Family Diabetes (2 SISTERS), Family Heart Disease (PARENTS), Family Hypertension (PARENTS), Family Stroke ( SISTER) - Social History Smoking Status: Smoker, status unknown Frequency of Alcohol Use: None Type of Drug Use: None Exam - Constitutional Vitals: Period Temp Pulse Resp BP Sys/Moe Pulse Ox Last 24 Hr 98.2 F-99.3 F 90-115 14-23 98-123/53-73 90-99 Exam: GENERAL: Patient is in no acute distress. NECK: Neck is supple. There is no JVD. No carotid bruits present. No thyroid masses. CVS: First and second heart sounds are normal. There is no S3 present. Regular rate and rhythm. RESPIRATORY: Lungs are clear to auscultation without any rales or rhonchi. ABDOMEN: Soft and non-tender. Bowel sounds are present. There is no hepatosplenomegaly. EXT: There is no palpable edema. Peripheral pulses are present. Skin: No rashes Central Nervous system: General: Alert, awake and Oriented x 3 Speech: Fluent Comprehension: Intact and normal Facial expressions: Normal Cranial Nerves: CN1/Olfactory: Normal CN II/ Optic: Normal, Visual Hobbs unreliable CN III, and : DOMINICK & EOMI CN V: Normal & intact CN VII: face is symmetric CNVIII: Normal CN XI/X/XI/XII: Intact and Normal Motor: Bulk and Tone is normal. No bradykinesia seen. No tremor seen on the outstretched hands. Strength in the right 4/5 Strength in the left 4/5 Sensory: Grossly intact for all the modalities of PP, LT and temp sense Reflexes: 1+ and symmetrical Cerebellar function: Normal finger to nose and heel to parker testing. Gait: Broad-based gait Results - Labs CBC & BMP: 07/02/16 05:14 07/02/16 05:14 Assessment and Plan (1) Tremor Status: Acute Assessment and plan: This is most likely an enhanced physiologic tremors. I do not see any signs of essential tremor, parkinsonian tremor or a central nervous system tremors. No treatment or investigations indicated at this point in time. Thank you for the consultation Signoff please call when necessary Current Visit: Yes (2) Gait disorder Status: Acute Assessment and plan: This is due to the combination of multiple comorbidities including diffuse arthritis, possible neuropathy and pulmonary problems. Current Visit: Yes
[2016-07-03] MEDS: methylPREDNISolone SOD SUC 40 MG/1 ML VIAL IV SCH (02:18)
[2016-07-03] MEDS: ALBUTEROL/IPRATROPIUM 3 ML NEB RESP TX SCH ×3 (03:37→11:33)
[2016-07-03 06:30] LABS: Basophils % 0.1 % (0.0-0.8); Hemoglobin 12.9 GM/DL (14.0-18.0); Immature Granulocytes % 0.7 %; Immature Granulocytes Absolute 0.09 #; Lymphocytes # 0.7 10*3/uL (1.4-4.0); Lymphocytes % 5.3 % (21.2-54.2); Mean Corpuscular HGB Conc 34.9 GM/DL (32-36); Mean Corpuscular Hemoglobin 32 PG (27-34); Mean Corpuscular Volume 91.4 FL (87-102); Mean Platelet Volume 9.4 FL (9.6-12.0); Monocytes # 0.6 10*3/uL (0.11-0.8); Monocytes % 4.7 % (1.7-12.7); Neutrophils % 89.2 % (38.7-73.9); Platelet Count 292 T/CUMM (130-400); Red Blood Count 4.05 MC/CUMM (3.8-5.5); Red Cell Distribution Width 13.3 % (9.3-17.3); White Blood Count 13.4 T/CUMM (4-12)
[2016-07-03 06:54] LABS: Calcium 9.2 MG/DL (8.5-10.1); Osmolality,Calculated 278.7 MOS/KG (273-304); Potassium 3.9 MMOL/L (3.5-5.1)
--- NOTE | 2016-07-03 08:08 | Pulmonology Progress Note ---
Pulmonary - PN: Subj Interval history: Patient is a 66-year-old white man that has COPD but apparently came in Saturday because he was having some weakness and was felt to need a neurological workup. He has been found to have some renal insufficiency and hyponatremia. He does have shortness of breath but his COPD is not terrible. He says his breathing is doing okay today. He did have a neurological evaluation yesterday and nothing suggested a significant problem. His sodium is up to 131. He said he had a fairly good night and his breathing is doing better. His chest x-ray is clear and his lungs are clear. He has stable COPD and can go home from a pulmonary standpoint. Exam (Progress Note) - Constitutional Vitals: Period Temp Pulse Resp BP Sys/Moe Pulse Ox Last 24 Hr 97.8 F-98.8 F 72-115 14-23 98-123/53-73 92-99 Exam: General appearance: normal weight, no acute distress, he is comfortable lying in bed. - Head Head exam: Present: normal inspection, normocephalic - Eye Eye exam: Present: EOMI. Absent: scleral icterus Pupils: Present: DOMINICK - ENT ENT exam: Present: normal exam - Neck Neck exam: Present: normal inspection. Absent: lymphadenopathy, thyromegaly - Respiratory Respiratory exam: Present: He has slightly diminished breath sounds throughout but no significant wheezing. - Cardiovascular Cardiovascular exam: Present: regular rate and rhythm. Absent: gallop, systolic murmur - GI/Abdominal GI/Abdominal exam: Present: normal bowel sounds, soft. Absent: organomegaly, tenderness - Extremities Exam Extremities exam: Absent: calf tenderness, edema - Neurological Exam Neurological exam: Present: alert, oriented X3, abnormal gait (He has had some difficulty walking.), CN II-XII intact - Psychiatric Psychiatric exam: Present: normal affect, normal mood - Skin Skin exam: Present: warm, dry Results - Labs CBC & BMP: 07/03/16 05:53 07/03/16 05:53 - Diagnostic Findings Procedure: Chest x-ray: image reviewed by me, report reviewed by me (Chest x- ray suggests COPD changes but is clear.) Assessment and Plan (1) COPD exacerbation Status: Acute Assessment and plan: Patient has COPD but is doing relatively well at present. He is stable on bronchodilator therapy and can go home from a pulmonary standpoint. Current Visit: Yes (2) Tobacco abuse Status: Chronic Assessment and plan: He certainly needs to stay off cigarettes. Current Visit: Yes (3) Hypertension Status: Chronic Assessment and plan: His blood pressures been on the low side and his medicines adjusted. His renal function is better and his sodium is better. Current Visit: Yes Qualifiers: Hypertension type: essential hypertension Qualified Code(s): I10 - Essential (primary) hypertension (4) Hyponatremia with decreased serum osmolality Status: Acute Assessment and plan: His sodium is around 130-132 range. Current Visit: Yes (5) ARF (acute renal failure) Status: Acute Assessment and plan: His creatinine is down to 1.8 today. Current Visit: Yes (6) Tremor Status: Acute Assessment and plan: He has had some weakness of his legs and tremor. He was not felt to have anything significant by neurology. Current Visit: Yes
[2016-07-03] MEDS: NICOTINE 21 MG/24 HR PATCH TRANSDERM SCH (08:54)
[2016-07-03] MEDS: ROSUVASTATIN 10 MG TABLET PO SCH (08:55)
[2016-07-03] MEDS: PARoxetine 20 MG TABLET PO SCH (08:55)
[2016-07-03] MEDS: ASPIRIN CHEW 81 MG TABLET PO SCH (08:55)
[2016-07-03] MEDS: MAGNESIUM CHLORIDE 64 MG TABLET PO SCH (08:55)
[2016-07-03] MEDS: clonazePAM 0.5 MG TABLET PO SCH (08:55)
[2016-07-03] MEDS: METOPROLOL TARTRATE 25 MG TABLET PO SCH (08:55)
[2016-07-03] MEDS: THEOPHYLLINE ER (24 HR) 400 MG TABLET PO SCH (08:55)
[2016-07-03] MEDS: POTASSIUM CHLORIDE 10 MEQ TABLET PO SCH (08:55)
[2016-07-03] MEDS: BUDESONIDE/FORMOTEROL 160-4.5 INHALER 6 GM INH SCH (08:56)
[2016-07-03] MEDS ORDERED: CEFUROXIME 250 MG TABLET PO SCH (09:00)
[2016-07-03] MEDS ORDERED: predniSONE 10 MG TABLET PO SCH (09:00)
--- NOTE | 2016-07-03 10:26 | Discharge Summary ---
<Simone Collazo - Last Filed: 07/03/16 09:45> Hospital Course - Hospital Course Hospital Course: Mr. Sanon is a 66-year-old male patient with a history of hypertension, smoking, COPD, hyperlipidemia, and asbestosis. The patient stated that he had been feeling weak for the last several months and that it progressively worsened. Pt. also reported being short of breath, falling, and having intermittent period of chest pressure. Patient's family doctor is Dr. Mane and he'd sent patient to be evaluated by Dr. Penn who is his multifold operator. Dr. Penn in turn told the patient to come to the ED for eval to rule out CVA. Patient's chest x-ray revealed increasing diffuse bilateral interstitial infiltrates versus edema. CT of his head showed no 'acute intracranial process with mild sinus disease'. The patient was admitted for COPD exacerbation, hyoponatermia (126 at time of admit) and elevated troponins (0.048). During the patient's course, pulmonology was consulted to evaluate the patient. They planned a cortrosyn stimulation test, treatment of bronchitis, and ABGs as well as breathing treatments were ordered. Nephrology was consulted on 07/01 because the pt. found to be in acute renal failure. The bun/creatinine increased from 12 to to and 42/1 to 1.8. As a result the lasix and losartan the patient had been taking was held. Neurology also saw patient and assessed the pts' gait disorder and tremor. The tremors were ruled thought to be physiologic and no further investigation was warranted at the time. Gait disorder thought to be secondary to arthritis and pulmonary issues. Pt's ILIANA has improved. Pt will be discharged today. Pt will be instructed to follow up with primary care provider and nephrology for any outpatient treatment. . Discharge Plan - Discharge Medications Continue NIFEdipine XL TAB [Procardia Xl] 60 mg PO BEDTIME Aspirin [Children's Aspirin] 81 mg PO DAILY PARoxetine [Paxil] 20 mg PO DAILY clonazePAM [Clonazepam] 0.5 mg PO TID Albuterol Sulfate [Ventolin HFA] 90 gm IH BID Rosuvastatin Calcium [Crestor] 5 mg PO DAILY Budesonide/Formoterol 160-4.5 [Symbicort 160-4.5] 2 puff INH BID Diclofenac 1% Gel [Voltaren 1% Gel] 1 applic TOP PRN PRN PRN Reason: Pain Magnesium Chloride [Magnesium Dr] 64 mg PO BID Albuterol/Ipratropium Neb [Duoneb] 3 ml RESP TX RT Q4H Metoprolol Tartrate Tab [Lopressor Tab] 25 mg PO DAILY Potassium Chloride 10 meq PO BID Theophylline ER Tab (24 Hr) 400 mg PO DAILY Indomethacin Cap [Indocin Cap] 25 mg PO QID PRN PRN Reason: Gout Discontinued Losartan/Hydrochlorothiazide [Losartan-Hctz 100-25 mg Tab] 1 each PO DAILY - Follow Up or Referral - Forms/Instructions Exam - Constitutional Vitals: Period Temp Pulse Resp BP Sys/Moe Pulse Ox Last 24 Hr 97.8 F-98.8 F 72-115 16-23 98-131/53-73 92-99 Discharge Results Procedures and tests throughout hospitalization: Pending Orders 07/04/16 04:00 Basic Metabolic Panel IN AM 07/05/16 04:00 Basic Metabolic Panel IN AM Labs on day of discharge: Labs from last 24 hours 07/03/16 07/03/16 05:53 05:53 WBC 13.4 H RBC 4.05 Hgb 12.9 L Hct 37.0 L MCV 91.4 MCH 32 MCHC 34.9 RDW 13.3 Plt Count 292 MPV 9.4 L Neut % (Auto) 89.2 H Lymph % (Auto) 5.3 L Treasure % (Auto) 4.7 Eos % (Auto) 0.0 Baso % (Auto) 0.1 Neut # (Auto) 12.0 H Lymph # (Auto) 0.7 L Treasure # (Auto) 0.6 Eos # (Auto) 0.0 Baso # (Auto) 0.0 Immature Gran % 0.7 Nucleated RBC % 0.0 Immature Gran # 0.09 Nucleated RBCs # 0.00 Sodium 131 L Potassium 3.9 Chloride 96 L Carbon Dioxide 23 Anion Gap 15.9 H BUN 56 H Creatinine 1.80 H GFR Calculation 35 BUN/Creatinine Ratio 31.00 H Glucose 125 H Calculated Osmolality 278.7 Calcium 9.2 DS: Provider Date of admission: 06/29/16 15:37 Primary care physician: . No PCP Attending physician on admission: Mu Leone MD Consults: 06/29/16 16:48 Consult to Pastoral Services [CONS] Routine Comment: Pastoral Screen: Declines Visit Pastoral Screen Source of Request: Patient 06/29/16 17:03 Consult to Physician [CONS] Routine Comment: pt of dr ramesh, copd [place] Consulting Provider: Nikunj Ramesh When should Consulting Provider be notified: In am Person Notified: Dr. Shabazz Date Notified: 06/30/16 Time Notified: 08:19 Consult Notification Comment: Dr. Shabazz saw over weekend. Dr. Ramesh to see on saturday07/02/16 06/29/16 17:11 Consult to Pharmacy [CONS] Routine Reason for Pharmacy Consult: Adjust Meds Renal Funct 07/01/16 10:28 Consult to Physician [CONS] Routine Comment: Consulting Provider: Reji Adamson When should Consulting Provider be notified: Now Person Notified: Dr. Adamson Date Notified: 07/01/16 Time Notified: 10:40 07/02/16 09:40 Consult to Physician [CONS] Routine Comment: intermittent significant tremor for over a month Consulting Provider: Justin Coleman Consult Notification Comment: LEFT MESSAGE WITH THE OFFICE AND YANNI CALLED BACK AT 1205 TO TELL ME SHE RECEIVED MY MESSAGE Discharging clinician: Simone Collazo NP <Mu Leone - Last Filed: 07/03/16 11:53> Hospital Course - Hospital Course Hospital Course: Patient seen with GUNNAR Collazo, agree with hospital course as documented. Patient's creatinine is improving off losartan/hctz and lasix. His blood pressure has also been stable. Will continue to hold his losartan/hctz. He will follow-up with his primary care physician. - Time spent with patient Time with patient DS: Less than 30 minutes Diagnosis - Discharge Diagnosis (1) Tremor Status: Chronic (2) COPD exacerbation Status: Resolved (3) Tobacco abuse Status: Chronic (4) Hypertension Status: Chronic (5) Anxiety Status: Chronic (6) Hyponatremia with decreased serum osmolality Status: Resolved (7) ARF (acute renal failure) Status: Resolved Discharge Plan - Discharge Data Condition at Discharge: Stable Discharge Diet: heart healthy Activity: resume usual activities as tolerated Hygiene: no restrictions Weight Bearing at Discharge: weight bear as tolerated Driving: no restrictions Contact your physician if you experience:: fever over 101, Shortness of breath Exam - Constitutional General appearance: normal weight - Head Head exam: Present: normocephalic, atraumatic - Eye Eye exam: Present: EOMI Pupils: Present: DOMINICK - ENT ENT exam: Present: normal exam - Neck Neck exam: Present: normal inspection - Respiratory Respiratory exam: Present: clear to auscultation bilaterally. Absent: rhonchi, wheezes - Cardiovascular Cardiovascular exam: Present: regular rate and rhythm - GI/Abdominal GI/Abdominal exam: Present: normal bowel sounds, soft. Absent: tenderness, rebound - Extremities Exam Extremities exam: Present: normal inspection - Back Exam Back exam: Present: normal inspection - Neurological Exam Neurological exam: Present: alert, oriented X3 - Psychiatric Psychiatric exam: Present: normal affect, normal mood - Skin Skin exam: Present: warm, intact
--- NOTE | 2016-07-03 11:18 | Nephrology Progress Note ---
Nephrology - PN: Subj Interval history: Mr. Janes Sanon is improving. His serum creatinine is falling and his blood pressure stable off losartan/HCTZ. I agree with discharge today. We visited in his room with family members with patient was occupied in the bathroom. He will check with his primary care physician following discharge to follow his blood pressure and hopefully that can be managed without a diuretic. The hyponatremia had on admission was likely due to the thiazide diuretic. We discussed his management with Dr. Leone thank you Exam (PN)-Nephrology - Vital Signs Vital signs: Period Temp Pulse Resp BP Sys/Moe Pulse Ox Last 24 Hr 97.8 F-98.8 F 72-115 16-23 98-131/53-73 92-99 - Lab 07/03/16 05:53 07/03/16 05:53 Most recent lab results ABG pH 7.444 (7.35-7.45) 06/30/16 10:56 ABG pCO2 34.1 MM HG (35-48) L 06/30/16 10:56 ABG pO2 73.2 MM HG (80-95) L 06/30/16 10:56 ABG HCO3 24.4 MMOL/L (20-26) 06/30/16 10:56 ABG O2 Saturation 95.2 % (95-100) 06/30/16 10:56 Calcium 9.2 MG/DL (8.5-10.1) 07/03/16 05:53 Phosphorus 3.9 MG/DL (2.5-4.9) 07/02/16 05:14 Magnesium 2.4 MG/DL (1.8-2.4) 07/02/16 05:14 Assessment and Plan (1) ARF (acute renal failure) Status: Acute Assessment and plan: Hold diuretics and Losartan Current Visit: Yes
[2016-07-03 13:28] VITALS: BP 116/70
--- NOTE | 2016-07-11 14:46 | Physician Query Form ---
CLICK EDIT DOCUMENT TO SELECT QUERY ANSWER --> OK --> SIGN Margarita Flower RN Clinical Inlayer W) [phone] (f) [phone] [email or web address] PROVIDERS: Make your selection(s) from the choices in EACH section by typing an "x" and enter comments in the comment section. Please use your independent medical judgment in providing your response. This request does not imply that any particular answer is desired or expected. CLINICAL INDICATORS: (Providers should not edit this section) The below diagnosis was documented in the record, but is not consistently noted in subsequent documentation. Based on documentation of "Will treat for COPD exacerbation, PNA and Volume overload" Treated with IV Solu Medrol, Duonebs, and IV Rocephin. Diagnosis: PNA Please clarify the following: (x ) The above diagnosis was monitored, evaluated, and/or treated and is a confirmed diagnosis ( ) The above diagnosis was ruled out ( ) The above diagnosis is still a likely, suspected, probable diagnosis ( ) Other, please specify: ( ) Clinically unable to determine COMMENTS: Use of terms such as suspected, likely, or probable (associated with a specific diagnosis that is being evaluated, monitored, or treated as if it exists) are acceptable and can be restated in the discharge summary if not ruled out. MTDD
== END 2016-07-03 14:17 | disposition home or self-care (01) | DRG 190 ==
LOC: N.ED 12:34 → N.EDINP 15:37 → N.2E 16:13
PROVIDERS: ADMIT Internal Medicine; ATTEND Internal Medicine

== ENCOUNTER 2017-04-04 09:42 | Inpatient (IN) ==
[2017-04-04] MEDS ORDERED: ALBUTEROL/IPRATROPIUM 3 ML NEB RESP TX STA (09:58)
[2017-04-04 10:05] LABS: Basophils # 0.1 10*3/uL (0.0-0.2); Basophils % 0.7 % (0.0-0.8); Eosinophils % 0.3 % (0.00-10.9); Hemoglobin 14.3 GM/DL (14.0-18.0); Immature Granulocytes % 0.8 %; Immature Granulocytes Absolute 0.07 #; Lymphocytes # 0.7 10*3/uL (1.4-4.0); Lymphocytes % 7.5 % (21.2-54.2); Mean Corpuscular Hemoglobin 32 PG (27-34); Mean Corpuscular Volume 95.2 FL (87-102); Mean Platelet Volume 9.8 FL (9.6-12.0); Neutrophils # 7.2 10*3/uL (1.4-7.4); Neutrophils % 79.7 % (38.7-73.9); Platelet Count 189 T/CUMM (130-400); Red Blood Count 4.41 MC/CUMM (3.8-5.5); Red Cell Distribution Width 13.1 % (9.3-17.3); White Blood Count 9.1 T/CUMM (4-12)
[2017-04-04] MEDS ORDERED: MORPHINE 2 MG/1 ML SYRINGE IV STA (10:25)
[2017-04-04] MEDS ORDERED: ONDANSETRON 4 MG/2 ML VIAL IV STA (10:25)
[2017-04-04] MEDS ORDERED: ACETAMINOPHEN 500 MG TABLET PO STA (10:25)
[2017-04-04] MEDS ORDERED: methylPREDNISolone SOD SUC 125 MG/2 ML VIAL IV STA (10:25)
[2017-04-04] MEDS ORDERED: SODIUM CHLORIDE 0.9% 500 ML IV STA (10:25)
[2017-04-04] MEDS ORDERED: ALBUTEROL 2.5 MG/3 ML NEB RESP TX SCH (10:30)
[2017-04-04] MEDS ORDERED: methylPREDNISolone SOD SUC 125 MG/2 ML VIAL ONE (10:33)
[2017-04-04] MEDS ORDERED: ONDANSETRON 4 MG/2 ML VIAL ONE (10:33)
[2017-04-04] MEDS ORDERED: ACETAMINOPHEN 500 MG TABLET ONE (10:33)
[2017-04-04] MEDS ORDERED: MORPHINE 10 MG/1 ML VIAL ONE (10:39)
[2017-04-04 10:43] LABS: Lactic Acid 3.7 MMOL/L (0.4-2.0)
[2017-04-04 10:44] LABS: Alanine Aminotransferase 20 U/L (16-61); Albumin 3.7 G/DL (3.4-5.0); Alkaline Phosphatase 69 U/L (45-117); Aspartate Amino Transferase 25 U/L (0-37); Blood Urea Nitrogen 13 MG/DL (7-18); Calcium 9.2 MG/DL (8.5-10.1); Glucose 142 MG/DL (74-106); Magnesium 1.8 MG/DL (1.8-2.4); Osmolality,Calculated 265.5 MOS/KG (273-304); Potassium 3.5 MMOL/L (3.5-5.1); Sodium 132 MMOL/L (136-145); Total Protein 6.8 G/DL (6.4-8.3)
[2017-04-04 11:05] LABS: INR 0.9; Partial Thromboplastin Time 30.4 SECS (0-40)
[2017-04-04] MEDS ORDERED: PIPERACILLIN/TAZOBACTAM 3,375 MG VIAL IV ONE (11:12)
[2017-04-04] MEDS: PIPERACILLIN/TAZOBACTAM 3,375 MG in SODIUM CHLORIDE 0.9% 100 ML IV SCH ×2 (11:14→18:46)
[2017-04-04 12:00] LABS: Apearance,Urine CLEAR (Clear); Bilirubin,Urine Negative (Negative); Blood, Urine Small mg/dL (Negative); Glucose,Urine (UA) Negative (Negative); Ketones,Urine Negative (Negative); Mucus,Urine Occasional /LPF (Occasional); Nitrite,Urine Negative (Negative); Protein,Urine 30 MG/DL; RBC,Urine 2 /HPF (0-4); Urine Color Yellow (Yellow); Urine Specific Gravity 1.012 (1.001-1.035); Urine Urobilinogen < 2.0 EU/DL (0.2-1.0); WBC,Urine <1 /HPF (0-6)
[2017-04-04] MEDS ORDERED: ONDANSETRON 4 MG/2 ML VIAL IV PRN (12:15)
[2017-04-04] MEDS ORDERED: diphenhydrAMINE CAP 25 MG CAPSULE PO PRN (12:15)
[2017-04-04] MEDS ORDERED: MORPHINE 10 MG/1 ML VIAL IV PRN (12:15)
[2017-04-04] MEDS ORDERED: ACETAMINOPHEN 325 MG TABLET PO PRN (12:15)
[2017-04-04 12:30] LABS: Allen Test Positive
[2017-04-04 12:31] LABS: ABG HCO3 24.3 MMOL/L (20-26); ABG Oxygen Saturation 91.3 % (95-100); ABG PCO2 40.4 MM HG (35-48); ABG PH 7.397 (7.35-7.45); ABG PO2 61.2 MM HG (80-95); ABG TCO2 21.4 MMOL/L (23-27)
[2017-04-04] MEDS ORDERED: SODIUM CHLORIDE 0.9% 2,050 ML IV ONE (12:46)
[2017-04-04] MEDS ORDERED: LEVOFLOXACIN INJ 750 MG in PREMIX 1 EACH IV SCH (13:00)
[2017-04-04] MEDS: ALBUTEROL/IPRATROPIUM 3 ML NEB RESP TX SCH ×2 (13:57→19:15)
[2017-04-04 14:02] LABS: Troponin I Only 0.295 NG/ML (0.00-0.045)
[2017-04-04] MEDS: PANTOPRAZOLE 40 MG TABLET PO SCH (15:18)
[2017-04-04] MEDS: OSELTAMIVIR 75 MG CAPSULE PO SCH ×2 (15:18→22:10)
[2017-04-04] MEDS: VANCOMYCIN INJ 1,000 MG in SODIUM CHLORIDE 0.9% 250 ML IV SCH (15:19)
[2017-04-04] MEDS: BUDESONIDE/FORMOTEROL 160-4.5 INHALER 6 GM INH SCH ×2 (15:21→22:09)
[2017-04-04 16:53] LABS: CKMB % 2.3 %
[2017-04-04 16:54] LABS: Troponin I Only 0.267 NG/ML (0.00-0.045)
[2017-04-04] MEDS: methylPREDNISolone SOD SUC 40 MG/1 ML VIAL IV SCH ×2 (17:23→22:30)
[2017-04-04] MEDS: SODIUM CHLORIDE 0.9% 1,000 ML IV SCH (18:35)
[2017-04-04 19:07] LABS: CKMB % 2.3 %
[2017-04-04 19:08] LABS: Troponin I Only 0.251 NG/ML (0.00-0.045)
[2017-04-04] MEDS: ENOXAPARIN 40 MG/0.4 ML SYRINGE SUBCUT SCH (22:09)
[2017-04-04 22:22] LABS: CKMB % 2.3 %
[2017-04-04 22:24] LABS: Troponin I Only 0.247 NG/ML (0.00-0.045)
[2017-04-04] MEDS: NICOTINE 21 MG/24 HR PATCH TRANSDERM PRN (22:33)
[2017-04-04] MEDS: LORazepam 2 MG/1 ML VIAL IV PRN (22:34)
[2017-04-05] MEDS: ALBUTEROL/IPRATROPIUM 3 ML NEB RESP TX SCH ×4 (00:06→20:34)
[2017-04-05] MEDS: SODIUM CHLORIDE 0.9% 1,000 ML IV SCH (03:58)
[2017-04-05] MEDS: ALBUTEROL 2.5 MG/3 ML NEB RESP TX PRN (04:06)
[2017-04-05] MEDS: methylPREDNISolone SOD SUC 40 MG/1 ML VIAL IV SCH ×3 (04:08→16:19)
[2017-04-05] MEDS: PIPERACILLIN/TAZOBACTAM 3,375 MG in SODIUM CHLORIDE 0.9% 100 ML IV SCH ×3 (04:15→18:00)
[2017-04-05] MEDS: LORazepam 2 MG/1 ML VIAL IV PRN (04:27)
[2017-04-05 04:57] LABS: Basophils % 0.1 % (0.0-0.8); Hematocrit 39.9 VOL% (42.0-52.0); Hemoglobin 13.1 GM/DL (14.0-18.0); Immature Granulocytes % 0.7 %; Immature Granulocytes Absolute 0.05 #; Lymphocytes # 0.4 10*3/uL (1.4-4.0); Lymphocytes % 5.8 % (21.2-54.2); Mean Corpuscular HGB Conc 32.8 GM/DL (32-36); Mean Corpuscular Hemoglobin 33 PG (27-34); Mean Corpuscular Volume 99.5 FL (87-102); Monocytes # 0.3 10*3/uL (0.11-0.8); Monocytes % 3.3 % (1.7-12.7); Neutrophils # 6.9 10*3/uL (1.4-7.4); Neutrophils % 90.1 % (38.7-73.9); Platelet Count 190 T/CUMM (130-400); Red Blood Count 4.01 MC/CUMM (3.8-5.5); Red Cell Distribution Width 13.3 % (9.3-17.3); White Blood Count 7.6 T/CUMM (4-12)
[2017-04-05 05:13] LABS: Lactic Acid 3.9 MMOL/L (0.4-2.0)
[2017-04-05 05:32] LABS: Albumin 3.4 G/DL (3.4-5.0); Bilirubin,Total 0.8 MG/DL (0.2-1.0); Calcium 8.2 MG/DL (8.5-10.1); Osmolality,Calculated 278.7 MOS/KG (273-304); Potassium 4.4 MMOL/L (3.5-5.1)
[2017-04-05 06:06] LABS: PT Patient Result 10.2 SECS; Partial Thromboplastin Time 35.3 SECS (0-40)
[2017-04-05] MEDS: BUDESONIDE/FORMOTEROL 160-4.5 INHALER 6 GM INH SCH ×2 (09:34→21:34)
[2017-04-05] MEDS: PANTOPRAZOLE 40 MG TABLET PO SCH (09:34)
[2017-04-05] MEDS: OSELTAMIVIR 75 MG CAPSULE PO SCH ×2 (09:34→21:29)
[2017-04-05] MEDS ORDERED: DICLOFENAC 1% GEL 100 GM TUBE TOP PRN (15:13)
[2017-04-05] MEDS ORDERED: NON-FORMULARY MEDICATION (Fluticasone/Vilanterol [Breo Ellipta 200-25 Mcg Inh] 1 PUFF) INH SCH (15:13)
[2017-04-05] MEDS ORDERED: NON-FORMULARY MEDICATION (Umeclidinium Bromide [Incruse Ellipta] 1 PUFF) INH SCH (15:13)
[2017-04-05] MEDS: ROSUVASTATIN 10 MG TABLET PO SCH (16:17)
[2017-04-05] MEDS: POTASSIUM CHLORIDE 10 MEQ TABLET PO SCH ×2 (16:17→21:29)
[2017-04-05] MEDS: ASPIRIN CHEW 81 MG TABLET PO SCH (16:18)
[2017-04-05] MEDS: MAGNESIUM CHLORIDE 64 MG TABLET PO SCH ×2 (16:18→21:29)
[2017-04-05] MEDS: guaiFENesin/DM ER 600-30 MG TABLET PO PRN (16:18)
[2017-04-05] MEDS: DOCUSATE SODIUM 100 MG CAPSULE PO PRN (16:18)
[2017-04-05] MEDS: METOPROLOL TARTRATE 25 MG TABLET PO SCH (16:18)
[2017-04-05] MEDS: PARoxetine 20 MG TABLET PO SCH ×2 (16:18→21:29)
[2017-04-05] MEDS: clonazePAM 0.5 MG TABLET PO SCH ×2 (16:19→21:28)
[2017-04-05] MEDS: THEOPHYLLINE ER (24 HR) 400 MG TABLET PO SCH (16:19)
[2017-04-05] MEDS: VANCOMYCIN INJ 1,000 MG in SODIUM CHLORIDE 0.9% 250 ML IV SCH (16:24)
[2017-04-05] MEDS: ENOXAPARIN 40 MG/0.4 ML SYRINGE SUBCUT SCH (21:30)
[2017-04-06] MEDS: methylPREDNISolone SOD SUC 40 MG/1 ML VIAL IV SCH ×5 (00:18→23:07)
[2017-04-06] MEDS: ALBUTEROL/IPRATROPIUM 3 ML NEB RESP TX SCH ×4 (00:20→19:04)
[2017-04-06] MEDS: SODIUM CHLORIDE 0.9% 1,000 ML IV SCH ×2 (02:51)
[2017-04-06] MEDS: PIPERACILLIN/TAZOBACTAM 3,375 MG in SODIUM CHLORIDE 0.9% 100 ML IV SCH ×3 (02:55→18:24)
[2017-04-06 07:07] LABS: Calcium 8.3 MG/DL (8.5-10.1); Osmolality,Calculated 278.7 MOS/KG (273-304); Potassium 3.6 MMOL/L (3.5-5.1)
[2017-04-06] MEDS: MAGNESIUM CHLORIDE 64 MG TABLET PO SCH ×2 (09:29→21:52)
[2017-04-06] MEDS: THEOPHYLLINE ER (24 HR) 400 MG TABLET PO SCH (09:29)
[2017-04-06] MEDS: clonazePAM 0.5 MG TABLET PO SCH ×3 (09:29→21:52)
[2017-04-06] MEDS: guaiFENesin/DM ER 600-30 MG TABLET PO PRN (09:30)
[2017-04-06] MEDS: PARoxetine 20 MG TABLET PO SCH ×2 (09:30→21:52)
[2017-04-06] MEDS: OSELTAMIVIR 75 MG CAPSULE PO SCH ×2 (09:30→21:52)
[2017-04-06] MEDS: POTASSIUM CHLORIDE 10 MEQ TABLET PO SCH ×2 (09:30→21:52)
[2017-04-06] MEDS: DOCUSATE SODIUM 100 MG CAPSULE PO PRN (09:30)
[2017-04-06] MEDS: ASPIRIN CHEW 81 MG TABLET PO SCH (09:30)
[2017-04-06] MEDS: PANTOPRAZOLE 40 MG TABLET PO SCH (09:30)
[2017-04-06] MEDS: METOPROLOL TARTRATE 25 MG TABLET PO SCH (09:30)
[2017-04-06] MEDS: BUDESONIDE/FORMOTEROL 160-4.5 INHALER 6 GM INH SCH ×2 (09:30→21:52)
[2017-04-06] MEDS: DORNASE ALFA 2.5 MG/2.5 ML VIAL RESP TX SCH ×2 (10:50→19:04)
[2017-04-06] MEDS: BENZONATATE 100 MG CAPSULE PO SCH ×2 (14:36→21:51)
[2017-04-06] MEDS: VANCOMYCIN INJ 1,000 MG in SODIUM CHLORIDE 0.9% 250 ML IV SCH (16:16)
[2017-04-06] MEDS: ENOXAPARIN 40 MG/0.4 ML SYRINGE SUBCUT SCH (21:52)
[2017-04-07] MEDS: ALBUTEROL/IPRATROPIUM 3 ML NEB RESP TX SCH ×4 (00:10→19:52)
[2017-04-07] MEDS: PIPERACILLIN/TAZOBACTAM 3,375 MG in SODIUM CHLORIDE 0.9% 100 ML IV SCH ×3 (03:19→18:13)
[2017-04-07] MEDS: methylPREDNISolone SOD SUC 40 MG/1 ML VIAL IV SCH ×4 (06:28→22:42)
[2017-04-07] MEDS: VANCOMYCIN INJ 1,000 MG in SODIUM CHLORIDE 0.9% 250 ML IV SCH ×2 (06:31→17:07)
[2017-04-07] MEDS: DORNASE ALFA 2.5 MG/2.5 ML VIAL RESP TX SCH ×2 (07:45→19:52)
[2017-04-07] MEDS: DOCUSATE SODIUM 100 MG CAPSULE PO PRN (08:27)
[2017-04-07] MEDS: BENZONATATE 100 MG CAPSULE PO SCH ×3 (08:27→20:47)
[2017-04-07] MEDS: clonazePAM 0.5 MG TABLET PO SCH ×3 (08:28→20:46)
[2017-04-07] MEDS: PARoxetine 20 MG TABLET PO SCH ×2 (08:28→20:46)
[2017-04-07] MEDS: THEOPHYLLINE ER (24 HR) 400 MG TABLET PO SCH (08:28)
[2017-04-07] MEDS: PANTOPRAZOLE 40 MG TABLET PO SCH (08:28)
[2017-04-07] MEDS: ROSUVASTATIN 10 MG TABLET PO SCH (08:28)
[2017-04-07] MEDS: ASPIRIN CHEW 81 MG TABLET PO SCH (08:28)
[2017-04-07] MEDS: POTASSIUM CHLORIDE 10 MEQ TABLET PO SCH ×2 (08:28→20:45)
[2017-04-07] MEDS: guaiFENesin/DM ER 600-30 MG TABLET PO PRN (08:28)
[2017-04-07] MEDS: BUDESONIDE/FORMOTEROL 160-4.5 INHALER 6 GM INH SCH ×2 (08:28→20:47)
[2017-04-07] MEDS: MAGNESIUM CHLORIDE 64 MG TABLET PO SCH ×2 (08:28→20:47)
[2017-04-07] MEDS: METOPROLOL TARTRATE 25 MG TABLET PO SCH (08:28)
[2017-04-07] MEDS: OSELTAMIVIR 75 MG CAPSULE PO SCH ×2 (08:28→20:47)
[2017-04-07 09:00] LABS: CKMB % 1.9 %
[2017-04-07 09:03] LABS: Troponin I Only 0.411 NG/ML (0.00-0.045)
[2017-04-07] MEDS: SODIUM CHLORIDE 0.9% 1,000 ML IV SCH ×2 (15:01→16:10)
[2017-04-07] MEDS: ENOXAPARIN 40 MG/0.4 ML SYRINGE SUBCUT SCH (20:49)
[2017-04-08] MEDS: ALBUTEROL/IPRATROPIUM 3 ML NEB RESP TX SCH ×4 (01:12→19:27)
[2017-04-08] MEDS: PIPERACILLIN/TAZOBACTAM 3,375 MG in SODIUM CHLORIDE 0.9% 100 ML IV SCH ×3 (03:20→20:01)
[2017-04-08] MEDS: ALBUTEROL 2.5 MG/3 ML NEB RESP TX PRN (05:00)
[2017-04-08] MEDS: methylPREDNISolone SOD SUC 40 MG/1 ML VIAL IV SCH ×4 (05:02→21:27)
[2017-04-08] MEDS: VANCOMYCIN INJ 1,000 MG in SODIUM CHLORIDE 0.9% 250 ML IV SCH ×2 (05:05→18:38)
[2017-04-08] MEDS: DORNASE ALFA 2.5 MG/2.5 ML VIAL RESP TX SCH ×2 (07:12→19:35)
[2017-04-08] MEDS: THEOPHYLLINE ER (24 HR) 400 MG TABLET PO SCH (09:45)
[2017-04-08] MEDS: ASPIRIN CHEW 81 MG TABLET PO SCH (09:45)
[2017-04-08] MEDS: MAGNESIUM CHLORIDE 64 MG TABLET PO SCH ×2 (09:45→21:04)
[2017-04-08] MEDS: clonazePAM 0.5 MG TABLET PO SCH ×3 (09:45→21:05)
[2017-04-08] MEDS: PANTOPRAZOLE 40 MG TABLET PO SCH (09:45)
[2017-04-08] MEDS: METOPROLOL TARTRATE 25 MG TABLET PO SCH (09:46)
[2017-04-08] MEDS: OSELTAMIVIR 75 MG CAPSULE PO SCH ×2 (09:46→21:04)
[2017-04-08] MEDS: PARoxetine 20 MG TABLET PO SCH ×2 (09:46→21:05)
[2017-04-08] MEDS: POTASSIUM CHLORIDE 10 MEQ TABLET PO SCH ×2 (09:46→21:05)
[2017-04-08] MEDS: BUDESONIDE/FORMOTEROL 160-4.5 INHALER 6 GM INH SCH ×2 (09:51→21:03)
[2017-04-08] MEDS ORDERED: FUROSEMIDE 40 MG/4 ML VIAL IV ONE (10:00)
[2017-04-08] MEDS ORDERED: RACEPINEPHRINE 0.5 ML NEB RESP TX ONE (10:00)
[2017-04-08] MEDS: BENZONATATE 100 MG CAPSULE PO SCH ×3 (11:48→21:05)
[2017-04-08] MEDS: guaiFENesin/DM ER 600-30 MG TABLET PO SCH ×2 (13:26→21:04)
[2017-04-08] MEDS: ENOXAPARIN 40 MG/0.4 ML SYRINGE SUBCUT SCH (21:05)
[2017-04-09] MEDS: ALBUTEROL/IPRATROPIUM 3 ML NEB RESP TX SCH ×6 (00:17→23:23)
[2017-04-09] MEDS: methylPREDNISolone SOD SUC 40 MG/1 ML VIAL IV SCH ×4 (03:00→20:40)
[2017-04-09] MEDS: PIPERACILLIN/TAZOBACTAM 3,375 MG in SODIUM CHLORIDE 0.9% 100 ML IV SCH ×2 (03:10→11:05)
[2017-04-09 05:55] LABS: Basophils % 0.2 % (0.0-0.8); Hematocrit 38.7 VOL% (42.0-52.0); Hemoglobin 13.1 GM/DL (14.0-18.0); Immature Granulocytes % 1.7 %; Immature Granulocytes Absolute 0.14 #; Lymphocytes # 0.8 10*3/uL (1.4-4.0); Lymphocytes % 9.4 % (21.2-54.2); Mean Corpuscular HGB Conc 33.9 GM/DL (32-36); Mean Corpuscular Hemoglobin 32 PG (27-34); Mean Corpuscular Volume 94.2 FL (87-102); Mean Platelet Volume 10.1 FL (9.6-12.0); Monocytes # 0.5 10*3/uL (0.11-0.8); Monocytes % 5.9 % (1.7-12.7); Neutrophils # 6.9 10*3/uL (1.4-7.4); Neutrophils % 82.8 % (38.7-73.9); Platelet Count 166 T/CUMM (130-400); Red Blood Count 4.11 MC/CUMM (3.8-5.5); Red Cell Distribution Width 13.2 % (9.3-17.3); White Blood Count 8.3 T/CUMM (4-12)
[2017-04-09] MEDS: VANCOMYCIN INJ 1,000 MG in SODIUM CHLORIDE 0.9% 250 ML IV SCH (06:05)
[2017-04-09 06:17] LABS: Band Neutrophils 1 % (0-10); Giant Platelets Few; Hypochromasia 1+; Lymphocytes 9 % (20-55); Platelet Estimate Normal; Segmented Neutrophils 85 % (50-85); Total Cells Counted 100
[2017-04-09 06:22] LABS: Calcium 8.6 MG/DL (8.5-10.1); Osmolality,Calculated 280.5 MOS/KG (273-304); Potassium 2.9 MMOL/L (3.5-5.1)
[2017-04-09] MEDS: DORNASE ALFA 2.5 MG/2.5 ML VIAL RESP TX SCH ×2 (07:11→19:40)
[2017-04-09] MEDS: clonazePAM 0.5 MG TABLET PO SCH ×3 (10:05→20:41)
[2017-04-09] MEDS: MAGNESIUM CHLORIDE 64 MG TABLET PO SCH ×2 (10:05→20:41)
[2017-04-09] MEDS: ROSUVASTATIN 10 MG TABLET PO SCH (10:05)
[2017-04-09] MEDS: OSELTAMIVIR 75 MG CAPSULE PO SCH ×2 (10:05→20:41)
[2017-04-09] MEDS: PANTOPRAZOLE 40 MG TABLET PO SCH (10:05)
[2017-04-09] MEDS: BENZONATATE 100 MG CAPSULE PO SCH ×3 (10:05→20:41)
[2017-04-09] MEDS: ASPIRIN CHEW 81 MG TABLET PO SCH (10:06)
[2017-04-09] MEDS: POTASSIUM CHLORIDE 10 MEQ TABLET PO SCH ×2 (10:06→20:41)
[2017-04-09] MEDS: PARoxetine 20 MG TABLET PO SCH ×2 (10:06→20:41)
[2017-04-09] MEDS: THEOPHYLLINE ER (24 HR) 400 MG TABLET PO SCH (10:06)
[2017-04-09] MEDS: METOPROLOL TARTRATE 25 MG TABLET PO SCH (10:10)
[2017-04-09] MEDS: BUDESONIDE/FORMOTEROL 160-4.5 INHALER 6 GM INH SCH ×2 (10:16→20:50)
[2017-04-09] MEDS: guaiFENesin/DM ER 600-30 MG TABLET PO SCH ×2 (10:19→20:41)
[2017-04-09] MEDS ORDERED: POTASSIUM CHLORIDE 20 MEQ TABLET PO ONE (13:00)
[2017-04-09] MEDS: acetaZOLAMIDE 250 MG TABLET PO SCH ×2 (13:17→20:41)
[2017-04-09] MEDS: AZITHROMYCIN 250 MG TABLET PO SCH (13:17)
[2017-04-09] MEDS: ENOXAPARIN 40 MG/0.4 ML SYRINGE SUBCUT SCH (20:40)
[2017-04-10] MEDS: ALBUTEROL/IPRATROPIUM 3 ML NEB RESP TX SCH ×5 (02:54→20:23)
[2017-04-10] MEDS: methylPREDNISolone SOD SUC 40 MG/1 ML VIAL IV SCH ×4 (03:58→21:31)
[2017-04-10] MEDS: LORazepam 2 MG/1 ML VIAL IV PRN (06:25)
[2017-04-10] MEDS: DORNASE ALFA 2.5 MG/2.5 ML VIAL RESP TX SCH ×2 (07:19→20:23)
[2017-04-10 07:29] LABS: Calcium 9.5 MG/DL (8.5-10.1); Magnesium 2.3 MG/DL (1.8-2.4); Osmolality,Calculated 279.7 MOS/KG (273-304); Potassium 3.8 MMOL/L (3.5-5.1)
[2017-04-10] MEDS: BUDESONIDE/FORMOTEROL 160-4.5 INHALER 6 GM INH SCH ×2 (09:30→21:36)
[2017-04-10] MEDS: guaiFENesin/DM ER 600-30 MG TABLET PO SCH ×2 (09:31→21:34)
[2017-04-10] MEDS: PANTOPRAZOLE 40 MG TABLET PO SCH (09:31)
[2017-04-10] MEDS: MAGNESIUM CHLORIDE 64 MG TABLET PO SCH ×2 (09:31→21:35)
[2017-04-10] MEDS: THEOPHYLLINE ER (24 HR) 400 MG TABLET PO SCH (09:32)
[2017-04-10] MEDS: clonazePAM 0.5 MG TABLET PO SCH ×3 (09:32→21:35)
[2017-04-10] MEDS: acetaZOLAMIDE 250 MG TABLET PO SCH ×2 (09:32→21:34)
[2017-04-10] MEDS: PARoxetine 20 MG TABLET PO SCH ×2 (09:32→21:35)
[2017-04-10] MEDS: ASPIRIN CHEW 81 MG TABLET PO SCH (09:32)
[2017-04-10] MEDS: BENZONATATE 100 MG CAPSULE PO SCH ×3 (09:32→21:44)
[2017-04-10] MEDS: AZITHROMYCIN 250 MG TABLET PO SCH (09:33)
[2017-04-10] MEDS: NICOTINE 21 MG/24 HR PATCH TRANSDERM PRN (09:34)
[2017-04-10] MEDS: POTASSIUM CHLORIDE 10 MEQ TABLET PO SCH ×2 (09:35→21:34)
[2017-04-10] MEDS: ENOXAPARIN 40 MG/0.4 ML SYRINGE SUBCUT SCH (21:30)
[2017-04-10] MEDS: DOCUSATE SODIUM 100 MG CAPSULE PO PRN (21:35)
[2017-04-11] MEDS: ALBUTEROL/IPRATROPIUM 3 ML NEB RESP TX SCH ×7 (00:30→23:53)
[2017-04-11] MEDS: methylPREDNISolone SOD SUC 40 MG/1 ML VIAL IV SCH ×4 (03:05→21:30)
[2017-04-11] MEDS: DORNASE ALFA 2.5 MG/2.5 ML VIAL RESP TX SCH ×2 (07:25→20:26)
[2017-04-11] MEDS ORDERED: GLYCOPYRROLATE 0.4 MG/2 ML VIAL IM ONE (08:00)
[2017-04-11] MEDS ORDERED: MEPERIDINE 50 MG/1 ML VIAL IM ONE (08:00)
[2017-04-11] MEDS ORDERED: PROMETHAZINE 25 MG/1 ML VIAL IM ONE (08:00)
[2017-04-11] MEDS: BUDESONIDE/FORMOTEROL 160-4.5 INHALER 6 GM INH SCH ×2 (08:05→21:37)
[2017-04-11] MEDS ORDERED: LIDOCAINE 1% 20 ML VIAL MISC INJ ONE (08:30)
[2017-04-11] MEDS ORDERED: MIDAZOLAM 2 MG/2 ML VIAL IV ONE (08:30)
[2017-04-11] MEDS ORDERED: LIDOCAINE 2% VISCOUS 100 ML BOTTLE SWISH/SPIT ONE (08:30)
[2017-04-11] MEDS ORDERED: LIDOCAINE 2% 20 ML VIAL RESP TX ONE (08:30)
[2017-04-11] MEDS ORDERED: MIDAZOLAM 2 MG/2 ML VIAL ONE (08:53)
[2017-04-11] MEDS: AZITHROMYCIN 250 MG TABLET PO SCH (11:53)
[2017-04-11] MEDS: acetaZOLAMIDE 250 MG TABLET PO SCH ×2 (11:54→21:32)
[2017-04-11] MEDS: BENZONATATE 100 MG CAPSULE PO SCH ×3 (11:54→21:32)
[2017-04-11] MEDS: POTASSIUM CHLORIDE 10 MEQ TABLET PO SCH ×2 (11:54→21:33)
[2017-04-11] MEDS: MAGNESIUM CHLORIDE 64 MG TABLET PO SCH ×2 (11:54→21:33)
[2017-04-11] MEDS: PANTOPRAZOLE 40 MG TABLET PO SCH (11:54)
[2017-04-11] MEDS: THEOPHYLLINE ER (24 HR) 400 MG TABLET PO SCH (11:55)
[2017-04-11] MEDS: clonazePAM 0.5 MG TABLET PO SCH ×3 (11:55→21:32)
[2017-04-11] MEDS: guaiFENesin/DM ER 600-30 MG TABLET PO SCH ×2 (11:55→21:33)
[2017-04-11] MEDS: ROSUVASTATIN 10 MG TABLET PO SCH (11:55)
[2017-04-11] MEDS: ASPIRIN CHEW 81 MG TABLET PO SCH (11:55)
[2017-04-11] MEDS: PARoxetine 20 MG TABLET PO SCH ×2 (11:55→21:33)
[2017-04-11] MEDS: METOPROLOL TARTRATE 25 MG TABLET PO SCH (11:57)
[2017-04-11] MEDS: ENOXAPARIN 40 MG/0.4 ML SYRINGE SUBCUT SCH (21:29)
[2017-04-11] MEDS: DOCUSATE SODIUM 100 MG CAPSULE PO PRN (21:32)
[2017-04-12] MEDS: methylPREDNISolone SOD SUC 40 MG/1 ML VIAL IV SCH ×3 (03:04→16:23)
[2017-04-12] MEDS: ALBUTEROL/IPRATROPIUM 3 ML NEB RESP TX SCH ×5 (03:20→20:08)
[2017-04-12 06:58] LABS: Magnesium 2.3 MG/DL (1.8-2.4); Osmolality,Calculated 284.5 MOS/KG (273-304); Potassium 3.2 MMOL/L (3.5-5.1)
[2017-04-12] MEDS: DORNASE ALFA 2.5 MG/2.5 ML VIAL RESP TX SCH ×2 (07:47→20:18)
[2017-04-12] MEDS: BUDESONIDE/FORMOTEROL 160-4.5 INHALER 6 GM INH SCH ×2 (09:48→21:15)
[2017-04-12] MEDS: METOPROLOL TARTRATE 25 MG TABLET PO SCH (09:49)
[2017-04-12] MEDS: clonazePAM 0.5 MG TABLET PO SCH ×3 (09:49→21:16)
[2017-04-12] MEDS: ASPIRIN CHEW 81 MG TABLET PO SCH (09:49)
[2017-04-12] MEDS: THEOPHYLLINE ER (24 HR) 400 MG TABLET PO SCH (09:49)
[2017-04-12] MEDS: MAGNESIUM CHLORIDE 64 MG TABLET PO SCH ×2 (09:49→21:16)
[2017-04-12] MEDS: guaiFENesin/DM ER 600-30 MG TABLET PO SCH ×2 (09:49→21:17)
[2017-04-12] MEDS: acetaZOLAMIDE 250 MG TABLET PO SCH ×2 (09:49→21:16)
[2017-04-12] MEDS: PANTOPRAZOLE 40 MG TABLET PO SCH (09:49)
[2017-04-12] MEDS: POTASSIUM CHLORIDE 10 MEQ TABLET PO SCH ×2 (09:49→21:16)
[2017-04-12] MEDS: PARoxetine 20 MG TABLET PO SCH ×2 (09:49→21:16)
[2017-04-12] MEDS: AZITHROMYCIN 250 MG TABLET PO SCH (09:49)
[2017-04-12] MEDS: BENZONATATE 100 MG CAPSULE PO SCH ×3 (11:24→21:17)
[2017-04-12] MEDS: ENOXAPARIN 40 MG/0.4 ML SYRINGE SUBCUT SCH (21:16)
[2017-04-13] MEDS: methylPREDNISolone SOD SUC 40 MG/1 ML VIAL IV SCH ×2 (01:43→09:27)
[2017-04-13 05:16] LABS: Basophils % 0.2 % (0.0-0.8); Hematocrit 39.5 VOL% (42.0-52.0); Hemoglobin 13.4 GM/DL (14.0-18.0); Immature Granulocytes % 1.7 %; Lymphocytes # 0.6 10*3/uL (1.4-4.0); Lymphocytes % 5.2 % (21.2-54.2); Mean Corpuscular HGB Conc 33.9 GM/DL (32-36); Mean Corpuscular Hemoglobin 32 PG (27-34); Mean Platelet Volume 10.4 FL (9.6-12.0); Monocytes % 8.4 % (1.7-12.7); Neutrophils # 9.8 10*3/uL (1.4-7.4); Neutrophils % 84.5 % (38.7-73.9); Platelet Count 204 T/CUMM (130-400); Red Blood Count 4.16 MC/CUMM (3.8-5.5); Red Cell Distribution Width 13.2 % (9.3-17.3); White Blood Count 11.6 T/CUMM (4-12)
[2017-04-13] MEDS: DORNASE ALFA 2.5 MG/2.5 ML VIAL RESP TX SCH ×2 (06:59→19:46)
[2017-04-13] MEDS: ALBUTEROL/IPRATROPIUM 3 ML NEB RESP TX SCH ×4 (06:59→19:46)
[2017-04-13] MEDS: AZITHROMYCIN 250 MG TABLET PO SCH (09:23)
[2017-04-13] MEDS: ASPIRIN CHEW 81 MG TABLET PO SCH (09:23)
[2017-04-13] MEDS: BENZONATATE 100 MG CAPSULE PO SCH ×3 (09:24→20:10)
[2017-04-13] MEDS: ROSUVASTATIN 10 MG TABLET PO SCH (09:24)
[2017-04-13] MEDS: BUDESONIDE/FORMOTEROL 160-4.5 INHALER 6 GM INH SCH ×2 (09:24→20:11)
[2017-04-13] MEDS: POTASSIUM CHLORIDE 10 MEQ TABLET PO SCH ×2 (09:25→20:11)
[2017-04-13] MEDS: THEOPHYLLINE ER (24 HR) 400 MG TABLET PO SCH (09:25)
[2017-04-13] MEDS: MAGNESIUM CHLORIDE 64 MG TABLET PO SCH ×2 (09:25→20:10)
[2017-04-13] MEDS: METOPROLOL TARTRATE 25 MG TABLET PO SCH (09:25)
[2017-04-13] MEDS: guaiFENesin/DM ER 600-30 MG TABLET PO SCH ×2 (09:26→20:10)
[2017-04-13] MEDS: acetaZOLAMIDE 250 MG TABLET PO SCH ×2 (09:26→20:10)
[2017-04-13] MEDS: PARoxetine 20 MG TABLET PO SCH ×2 (09:26→20:10)
[2017-04-13] MEDS: PANTOPRAZOLE 40 MG TABLET PO SCH (09:26)
[2017-04-13] MEDS: clonazePAM 0.5 MG TABLET PO SCH ×3 (09:26→20:10)
[2017-04-13] MEDS ORDERED: POTASSIUM CHLORIDE 20 MEQ TABLET PO ONE (11:02)
[2017-04-13] MEDS: predniSONE 20 MG TABLET PO SCH (12:43)
[2017-04-13] MEDS: ENOXAPARIN 40 MG/0.4 ML SYRINGE SUBCUT SCH (20:09)
[2017-04-14] MEDS: ALBUTEROL/IPRATROPIUM 3 ML NEB RESP TX SCH ×5 (02:26→19:45)
[2017-04-14 06:56] LABS: Calcium 9.2 MG/DL (8.5-10.1); Magnesium 2.4 MG/DL (1.8-2.4); Osmolality,Calculated 284.4 MOS/KG (273-304)
[2017-04-14] MEDS: DORNASE ALFA 2.5 MG/2.5 ML VIAL RESP TX SCH ×2 (07:14→19:50)
[2017-04-14] MEDS: acetaZOLAMIDE 250 MG TABLET PO SCH ×2 (10:03→20:59)
[2017-04-14] MEDS: PARoxetine 20 MG TABLET PO SCH ×2 (10:03→21:00)
[2017-04-14] MEDS: BENZONATATE 100 MG CAPSULE PO SCH ×3 (10:03→20:59)
[2017-04-14] MEDS: clonazePAM 0.5 MG TABLET PO SCH ×3 (10:03→21:00)
[2017-04-14] MEDS: THEOPHYLLINE ER (24 HR) 400 MG TABLET PO SCH (10:03)
[2017-04-14] MEDS: AZITHROMYCIN 250 MG TABLET PO SCH (10:03)
[2017-04-14] MEDS: POTASSIUM CHLORIDE 10 MEQ TABLET PO SCH ×2 (10:04→21:00)
[2017-04-14] MEDS: PANTOPRAZOLE 40 MG TABLET PO SCH (10:04)
[2017-04-14] MEDS: MAGNESIUM CHLORIDE 64 MG TABLET PO SCH ×2 (10:04→21:00)
[2017-04-14] MEDS: METOPROLOL TARTRATE 25 MG TABLET PO SCH (10:04)
[2017-04-14] MEDS: ASPIRIN CHEW 81 MG TABLET PO SCH (10:04)
[2017-04-14] MEDS: BUDESONIDE/FORMOTEROL 160-4.5 INHALER 6 GM INH SCH ×2 (10:04→21:00)
[2017-04-14] MEDS: predniSONE 20 MG TABLET PO SCH (10:04)
[2017-04-14] MEDS: guaiFENesin/DM ER 600-30 MG TABLET PO SCH ×2 (10:04→20:59)
[2017-04-14] MEDS: ENOXAPARIN 40 MG/0.4 ML SYRINGE SUBCUT SCH (21:00)
[2017-04-15] MEDS: DORNASE ALFA 2.5 MG/2.5 ML VIAL RESP TX SCH ×2 (06:55→19:49)
[2017-04-15] MEDS: ALBUTEROL/IPRATROPIUM 3 ML NEB RESP TX SCH ×6 (06:55→19:49)
[2017-04-15] MEDS: PARoxetine 20 MG TABLET PO SCH ×2 (09:10→20:54)
[2017-04-15] MEDS: BENZONATATE 100 MG CAPSULE PO SCH ×3 (09:10→20:53)
[2017-04-15] MEDS: PANTOPRAZOLE 40 MG TABLET PO SCH (09:11)
[2017-04-15] MEDS: predniSONE 20 MG TABLET PO SCH (09:11)
[2017-04-15] MEDS: acetaZOLAMIDE 250 MG TABLET PO SCH ×2 (09:11→20:54)
[2017-04-15] MEDS: MAGNESIUM CHLORIDE 64 MG TABLET PO SCH ×2 (09:11→20:54)
[2017-04-15] MEDS: guaiFENesin/DM ER 600-30 MG TABLET PO SCH ×2 (09:11→20:53)
[2017-04-15] MEDS: clonazePAM 0.5 MG TABLET PO SCH ×3 (09:11→20:54)
[2017-04-15] MEDS: AZITHROMYCIN 250 MG TABLET PO SCH (09:11)
[2017-04-15] MEDS: THEOPHYLLINE ER (24 HR) 400 MG TABLET PO SCH (09:11)
[2017-04-15] MEDS: ASPIRIN CHEW 81 MG TABLET PO SCH (09:11)
[2017-04-15] MEDS: METOPROLOL TARTRATE 25 MG TABLET PO SCH (09:11)
[2017-04-15] MEDS: POTASSIUM CHLORIDE 10 MEQ TABLET PO SCH ×2 (09:11→20:54)
[2017-04-15] MEDS: ROSUVASTATIN 10 MG TABLET PO SCH (09:12)
[2017-04-15] MEDS: BUDESONIDE/FORMOTEROL 160-4.5 INHALER 6 GM INH SCH ×2 (09:14→20:54)
[2017-04-15] MEDS: cephALEXin 500 MG CAPSULE PO SCH ×2 (10:48→20:54)
[2017-04-15] MEDS: ENOXAPARIN 40 MG/0.4 ML SYRINGE SUBCUT SCH (20:54)
[2017-04-16] MEDS: ALBUTEROL/IPRATROPIUM 3 ML NEB RESP TX SCH ×6 (06:01→19:29)
[2017-04-16 06:37] LABS: Basophils % 0.2 % (0.0-0.8); Eosinophils # 0.1 10*3/uL (0.0-0.87); Eosinophils % 0.5 % (0.00-10.9); Hematocrit 41.5 VOL% (42.0-52.0); Hemoglobin 14.2 GM/DL (14.0-18.0); Immature Granulocytes % 2.1 %; Immature Granulocytes Absolute 0.27 #; Lymphocytes # 1.5 10*3/uL (1.4-4.0); Lymphocytes % 11.4 % (21.2-54.2); Mean Corpuscular HGB Conc 34.2 GM/DL (32-36); Mean Corpuscular Hemoglobin 32 PG (27-34); Mean Corpuscular Volume 94.1 FL (87-102); Mean Platelet Volume 10.7 FL (9.6-12.0); Monocytes # 1.2 10*3/uL (0.11-0.8); Monocytes % 9.4 % (1.7-12.7); Neutrophils % 76.4 % (38.7-73.9); Platelet Count 234 T/CUMM (130-400); Red Blood Count 4.41 MC/CUMM (3.8-5.5); Red Cell Distribution Width 13.4 % (9.3-17.3)
[2017-04-16] MEDS: DORNASE ALFA 2.5 MG/2.5 ML VIAL RESP TX SCH ×2 (07:19→19:29)
[2017-04-16] MEDS: predniSONE 20 MG TABLET PO SCH (08:47)
[2017-04-16] MEDS: guaiFENesin/DM ER 600-30 MG TABLET PO SCH ×2 (08:47→21:07)
[2017-04-16] MEDS: MAGNESIUM CHLORIDE 64 MG TABLET PO SCH ×2 (08:48→21:07)
[2017-04-16] MEDS: BENZONATATE 100 MG CAPSULE PO SCH ×3 (08:48→21:07)
[2017-04-16] MEDS: clonazePAM 0.5 MG TABLET PO SCH ×3 (08:48→21:07)
[2017-04-16] MEDS: acetaZOLAMIDE 250 MG TABLET PO SCH ×2 (08:48→21:06)
[2017-04-16] MEDS: PARoxetine 20 MG TABLET PO SCH ×2 (08:48→21:08)
[2017-04-16] MEDS: ASPIRIN CHEW 81 MG TABLET PO SCH (08:49)
[2017-04-16] MEDS: BUDESONIDE/FORMOTEROL 160-4.5 INHALER 6 GM INH SCH ×2 (08:49→21:06)
[2017-04-16] MEDS: METOPROLOL TARTRATE 25 MG TABLET PO SCH (08:49)
[2017-04-16] MEDS: cephALEXin 500 MG CAPSULE PO SCH ×2 (08:49→21:06)
[2017-04-16] MEDS: THEOPHYLLINE ER (24 HR) 400 MG TABLET PO SCH (08:49)
[2017-04-16] MEDS: PANTOPRAZOLE 40 MG TABLET PO SCH (08:49)
[2017-04-16] MEDS: POTASSIUM CHLORIDE 10 MEQ TABLET PO SCH ×2 (08:49→21:07)
[2017-04-16] MEDS: ENOXAPARIN 40 MG/0.4 ML SYRINGE SUBCUT SCH (21:06)
[2017-04-17] MEDS: ALBUTEROL/IPRATROPIUM 3 ML NEB RESP TX SCH (07:32)
[2017-04-17] MEDS: DORNASE ALFA 2.5 MG/2.5 ML VIAL RESP TX SCH (07:35)
[2017-04-17 07:40] VITALS: BP 151/72
[2017-04-17] MEDS: cephALEXin 500 MG CAPSULE PO SCH (09:15)
[2017-04-17] MEDS: MAGNESIUM CHLORIDE 64 MG TABLET PO SCH (09:15)
[2017-04-17] MEDS: ROSUVASTATIN 10 MG TABLET PO SCH (09:15)
[2017-04-17] MEDS: guaiFENesin/DM ER 600-30 MG TABLET PO SCH (09:16)
[2017-04-17] MEDS: clonazePAM 0.5 MG TABLET PO SCH (09:16)
[2017-04-17] MEDS: METOPROLOL TARTRATE 25 MG TABLET PO SCH (09:16)
[2017-04-17] MEDS: PARoxetine 20 MG TABLET PO SCH (09:16)
[2017-04-17] MEDS: THEOPHYLLINE ER (24 HR) 400 MG TABLET PO SCH (09:16)
[2017-04-17] MEDS: acetaZOLAMIDE 250 MG TABLET PO SCH (09:16)
[2017-04-17] MEDS: predniSONE 20 MG TABLET PO SCH (09:17)
[2017-04-17] MEDS: PANTOPRAZOLE 40 MG TABLET PO SCH (09:17)
[2017-04-17] MEDS: POTASSIUM CHLORIDE 10 MEQ TABLET PO SCH (09:17)
[2017-04-17] MEDS: ASPIRIN CHEW 81 MG TABLET PO SCH (09:17)
[2017-04-17] MEDS: BENZONATATE 100 MG CAPSULE PO SCH (09:18)
[2017-04-17] MEDS: BUDESONIDE/FORMOTEROL 160-4.5 INHALER 6 GM INH SCH (09:18)
== END 2017-04-17 10:31 | disposition home health service (06) | DRG 871 ==
LOC: EDUNIT# → EDBD → N.ED 09:42 → N.EDINP 12:15 → SUATTDRO 12:15 → N.ICU 13:31 → N.2E 04-05 15:06
PROVIDERS: ADMIT Internal Medicine; ATTEND Internal Medicine Geriatric Medicine

== ENCOUNTER 2017-10-09 07:30 | Inpatient (IN) ==
[2017-11-04 21:52] LABS: Basophils % 1.6 % (0.0-0.8); Hematocrit 35.1 VOL% (42.0-52.0); Hemoglobin 11.4 GM/DL (14.0-18.0); Immature Granulocytes % 0.4 %; Immature Granulocytes Absolute 0.01 #; Lymphocytes # 0.6 10*3/uL (1.4-4.0); Lymphocytes % 23.3 % (21.2-54.2); Mean Corpuscular HGB Conc 32.5 GM/DL (32-36); Mean Corpuscular Hemoglobin 31 PG (27-34); Mean Corpuscular Volume 94.9 FL (87-102); Mean Platelet Volume 10.8 FL (9.6-12.0); Monocytes # 0.6 10*3/uL (0.11-0.8); Monocytes % 25.3 % (1.7-12.7); Neutrophils # 1.2 10*3/uL (1.4-7.4); Neutrophils % 49.4 % (38.7-73.9); Platelet Count 174 T/CUMM (130-400); Red Cell Distribution Width 15.4 % (9.3-17.3); White Blood Count 2.5 T/CUMM (4-12)
[2017-11-04] MEDS ORDERED: ACETAMINOPHEN 325 MG TABLET PO PRN (22:12)
[2017-11-04 22:22] LABS: Albumin 2.8 G/DL (3.4-5.0); Bilirubin,Total 0.7 MG/DL (0.2-1.0); Calcium 8.6 MG/DL (8.5-10.1); Osmolality,Calculated 276.7 MOS/KG (273-304); Potassium 3.7 MMOL/L (3.5-5.1); Total Protein 5.8 G/DL (6.4-8.3)
[2017-11-04 22:56] LABS: Lymphocytes 25 % (20-55); Platelet Estimate Normal; Segmented Neutrophils 58 % (50-85); Total Cells Counted 100
[2017-11-04] MEDS: FAMOTIDINE 20 MG TABLET PO SCH (23:20)
[2017-11-04] MEDS: clonazePAM 0.5 MG TABLET PO SCH (23:20)
[2017-11-04] MEDS: SODIUM CHLORIDE 0.9% 1,000 ML IV SCH (23:20)
[2017-11-04] MEDS: AMPICILLIN INJ 2,000 MG in SODIUM CHLORIDE 0.9% 100 ML IV SCH (23:20)
[2017-11-04] MEDS: METOPROLOL TARTRATE 100 MG TABLET PO SCH (23:20)
[2017-11-04] MEDS: ATORVASTATIN 10 MG TABLET PO SCH (23:21)
[2017-11-04] MEDS: PARoxetine 20 MG TABLET PO SCH (23:21)
[2017-11-04] MEDS: MAGNESIUM CHLORIDE 64 MG TABLET PO SCH (23:24)
[2017-11-04] MEDS: TAMSULOSIN 0.4 MG CAPSULE PO SCH (23:24)
[2017-11-05] MEDS: ALBUTEROL/IPRATROPIUM 3 ML NEB RESP TX SCH ×6 (00:30→20:00)
[2017-11-05] MEDS ORDERED: ONDANSETRON 4 MG/2 ML VIAL ONE (02:51)
[2017-11-05] MEDS: ONDANSETRON 4 MG/2 ML VIAL IV PRN ×3 (04:06→16:12)
[2017-11-05] MEDS: AMPICILLIN INJ 2,000 MG in SODIUM CHLORIDE 0.9% 100 ML IV SCH ×4 (05:30→23:30)
[2017-11-05] MEDS: CHLORHEXIDINE 0.12% ORAL RINSE 60 ML BOTTLE SWISH/SPIT SCH ×2 (08:35→21:28)
[2017-11-05] MEDS: METOPROLOL TARTRATE 100 MG TABLET PO SCH ×2 (08:36→21:27)
[2017-11-05] MEDS: clonazePAM 0.5 MG TABLET PO SCH ×3 (08:36→21:26)
[2017-11-05] MEDS: FAMOTIDINE 20 MG TABLET PO SCH ×2 (08:36→21:26)
[2017-11-05] MEDS: ASPIRIN EC 81 MG TABLET PO SCH (08:36)
[2017-11-05] MEDS: CHLORHEXIDINE 4% SOLN 118 ML BOTTLE TOP SCH ×3 (08:36→21:27)
[2017-11-05] MEDS: THEOPHYLLINE ER (24 HR) 400 MG CAPSULE PO SCH (08:36)
[2017-11-05] MEDS: predniSONE 10 MG TABLET PO SCH (08:36)
[2017-11-05] MEDS: MAGNESIUM CHLORIDE 64 MG TABLET PO SCH ×2 (08:36→21:26)
[2017-11-05] MEDS: ALLOPURINOL 300 MG TABLET PO SCH (08:36)
[2017-11-05] MEDS: PARoxetine 20 MG TABLET PO SCH ×2 (08:36→21:27)
[2017-11-05] MEDS: FINASTERIDE 5 MG TABLET PO SCH (08:36)
[2017-11-05] MEDS ORDERED: FLUCONAZOLE 150 MG TABLET PO ONE (09:00)
[2017-11-05] MEDS: ATORVASTATIN 10 MG TABLET PO SCH (21:26)
[2017-11-05] MEDS: TAMSULOSIN 0.4 MG CAPSULE PO SCH (21:27)
[2017-11-05] MEDS: SODIUM CHLORIDE 0.9% 1,000 ML IV SCH (23:30)
[2017-11-06] MEDS: ALBUTEROL/IPRATROPIUM 3 ML NEB RESP TX SCH ×6 (00:25→19:10)
[2017-11-06] MEDS: AMPICILLIN INJ 2,000 MG in SODIUM CHLORIDE 0.9% 100 ML IV SCH ×5 (04:11→23:36)
[2017-11-06] MEDS ORDERED: VANCOMYCIN 1,000 MG VIAL ONE (05:16)
[2017-11-06] MEDS ORDERED: TISSUE ADHESIVE 1 EACH APPLICATOR TOP ONE (05:16)
[2017-11-06] MEDS ORDERED: ALBUTEROL/IPRATROPIUM 3 ML NEB RESP TX ONE (05:30)
[2017-11-06] MEDS ORDERED: FAMOTIDINE 20 MG TABLET PO ONE (05:30)
[2017-11-06] MEDS ORDERED: PHENYLEPHRINE DRIP 20 MG/250 ML PREMIX IV ONE (05:35)
[2017-11-06] MEDS ORDERED: CALCIUM CHLORIDE 1,000 MG/10 ML VIAL IV ONE (05:35)
[2017-11-06] MEDS ORDERED: HEPARIN/NACL 0.9% 2 UNITS/ML 500 ML IV ONE (05:35)
[2017-11-06] MEDS ORDERED: ePHEDrine 50 MG/ML AMP ONE (05:36)
[2017-11-06] MEDS ORDERED: VECURONIUM 10 MG VIAL IV ONE (05:36)
[2017-11-06] MEDS ORDERED: ETOMIDATE 40 MG/20 ML VIAL IV ONE (05:36)
[2017-11-06] MEDS ORDERED: MIDAZOLAM 10 MG/2 ML VIAL ONE (05:36)
[2017-11-06] MEDS ORDERED: SODIUM CHLORIDE 0.9% 250 ML IV ONE (05:37)
[2017-11-06] MEDS ORDERED: SODIUM CHLORIDE 0.9% 100 ML IV ONE (05:37)
[2017-11-06] MEDS ORDERED: LACTATED RINGERS 1,000 ML IV ONE (05:37)
[2017-11-06] MEDS ORDERED: AMINOCAPROIC ACID 5,000 MG/20 ML VIAL IV ONE (05:37)
[2017-11-06] MEDS ORDERED: NITROGLYCERIN DRIP 50 MG/250 ML BOTTLE IV ONE ×2 (05:37→18:53)
[2017-11-06] MEDS ORDERED: SODIUM CHLORIDE 0.9% 1,000 ML IV ONE (05:37)
[2017-11-06] MEDS: METOPROLOL TARTRATE 100 MG TABLET PO SCH ×2 (05:49→11:12)
[2017-11-06] MEDS ORDERED: CEFUROXIME INJ 1,500 MG in SYRINGE 1 EACH IV ONE (06:00)
[2017-11-06] MEDS ORDERED: DIAZEPAM 5 MG TABLET PO ONE (06:30)
[2017-11-06] MEDS ORDERED: EPINEPHrine 1 MG/10 ML SYRINGE ONE (07:48)
[2017-11-06] MEDS ORDERED: PHENYLEPHRINE DRIP 40 MG/250 ML PREMIX IV ONE (07:48)
[2017-11-06] MEDS ORDERED: CALCIUM CHLORIDE 1,000 MG/10 ML SYRINGE IV ONE (07:48)
[2017-11-06] MEDS ORDERED: POTASSIUM CHLORIDE RIDER 100 ML IV ONE (07:49)
[2017-11-06] MEDS ORDERED: ATROPINE 1 MG/10 ML SYRINGE ONE (07:49)
[2017-11-06 07:50] LABS: ABG Base Excess 0.6 MMOL/L (-2.5-2.5); ABG PCO2 42.4 MM HG (35-48); ABG TCO2 23.3 MMOL/L (23-27); Glucose Heart Surgery 92 MG/DL (74-106); Hematocrit Heart Surgery 31.2 PERCENT (42-52); Hemoglobin Heart Surgery 10.1 G/DL (14.0-18.0); Ionized Calcium Arterial 1.16 MMOL/L (1.21-1.46); PCO2 Patient Temp Arterial 42.4 MMHG; Patient Temperature 37 CELCIUS; Sodium Heart/CVR 139 MMOL/L (135-145)
[2017-11-06 07:51] LABS: Potassium Heart/CVR 2.4 MMOL/L (3.5-5.1)
[2017-11-06 08:35] LABS: Apearance,Urine CLEAR (Clear); Bilirubin,Urine Negative (Negative); Blood, Urine Negative (Negative); Glucose,Urine (UA) Negative (Negative); Ketones,Urine Negative (Negative); Nitrite,Urine Negative (Negative); Protein,Urine Negative; RBC,Urine 1 /HPF (0-4); Urine Color Yellow (Yellow); Urine Specific Gravity 1.012 (1.001-1.035); WBC,Urine 1 /HPF (0-6)
[2017-11-06 08:36] LABS: Hematocrit Heart Surgery 19.5 PERCENT (42-52); PCO2 Patient Temp Venous 33.1 MM HG; PH Patient Temp Venous 7.493; PO2 Patient Temp Venous 37.5 MM HG; VBG Base Excess 2.4 MEQ/L (0-4); VBG HCO3 26.4 MEQ/L (24-28); VBG Oxygen Saturation 83.8 %; VBG PCO2 38.2 MMHG (41-51); VBG PH 7.449
[2017-11-06 08:37] LABS: Hemoglobin Heart Surgery 6.2 G/DL (14.0-18.0); Potassium Heart/CVR 2.5 MMOL/L (3.5-5.1)
[2017-11-06] MEDS ORDERED: ENOXAPARIN 30 MG/0.3 ML SYRINGE SUBCUT SCH (09:00)
[2017-11-06 09:05] LABS: Hematocrit Heart Surgery 20.7 PERCENT (42-52); Hemoglobin Heart Surgery 6.6 G/DL (14.0-18.0); PCO2 Patient Temp Venous 27.7 MM HG; PH Patient Temp Venous 7.558; PO2 Patient Temp Venous 38.7 MM HG; Potassium Heart/CVR 3.1 MMOL/L (3.5-5.1); VBG Base Excess 2.7 MEQ/L (0-4); VBG HCO3 26.7 MEQ/L (24-28); VBG Oxygen Saturation 88.1 %; VBG PH 7.512; VBG PO2 47.5 MMHG (17-40)
[2017-11-06] MEDS ORDERED: DEXTROSE 5% KCL 20 MEQ 20 MEQ/1,000 ML BAG IV ONE (09:38)
[2017-11-06] MEDS ORDERED: MAGNESIUM SULFATE 10 GM/20 ML VIAL IV ONE (09:38)
[2017-11-06] MEDS ORDERED: methylPREDNISolone SOD SUC 1,000 MG/8 ML VIAL ONE (09:38)
[2017-11-06] MEDS ORDERED: HEPARIN 10,000 UNIT/10 ML VIAL ONE (09:38)
[2017-11-06] MEDS ORDERED: PROTAMINE SULFATE 250 MG/25 ML VIAL IV ONE (09:38)
[2017-11-06] MEDS ORDERED: ALBUMIN 25% 25 GM/100 ML VIAL IV ONE (09:38)
[2017-11-06] MEDS ORDERED: SODIUM BICARBONATE 50 MEQ/50 ML SYRINGE IV ONE ×3 (09:38→20:32)
[2017-11-06] MEDS ORDERED: POTASSIUM CHLORIDE 20 MEQ/10 ML VIAL ONE (09:39)
[2017-11-06] MEDS ORDERED: FUROSEMIDE 20 MG/2 ML VIAL ONE (09:39)
[2017-11-06] MEDS ORDERED: MANNITOL 12.5 GM/50 ML VIAL IV ONE (09:39)
[2017-11-06] MEDS ORDERED: PHENYLEPHRINE 1 MG/10 ML SYRINGE IV ONE (09:39)
[2017-11-06 09:47] LABS: ABG Base Excess 1.6 MMOL/L (-2.5-2.5); ABG HCO3 25.9 MMOL/L (20-26); ABG PCO2 34.4 MM HG (35-48); ABG TCO2 22.9 MMOL/L (23-27); Glucose Heart Surgery 197 MG/DL (74-106); Hematocrit Heart Surgery 28.4 PERCENT (42-52); Hemoglobin Heart Surgery 9.2 G/DL (14.0-18.0); PCO2 Patient Temp Arterial 34.4 MMHG; Patient Temperature 37 CELCIUS; Potassium Heart/CVR 3.5 MMOL/L (3.5-5.1); Sodium Heart/CVR 132 MMOL/L (135-145)
[2017-11-06] MEDS ORDERED: EPINEPHrine 1 MG/ML VIAL ONE (10:48)
[2017-11-06] MEDS ORDERED: MORPHINE 4 MG/1 ML VIAL IV PRN (11:10)
[2017-11-06] MEDS ORDERED: CALCIUM CHLORIDE 1,000 MG/10 ML SYRINGE IV PRN (11:10)
[2017-11-06] MEDS: SODIUM CHLORIDE 0.45% 1,000 ML IV SCH ×4 (11:10→22:45)
[2017-11-06] MEDS ORDERED: DEXTROSE 50% 25 GM/50 ML VIAL IV PRN ×2 (11:10)
[2017-11-06] MEDS ORDERED: MIDAZOLAM 2 MG/2 ML VIAL IV PRN (11:10)
[2017-11-06] MEDS ORDERED: MAGNESIUM SULF RIDER 4 GM in PREMIX 1 EACH IV PRN (11:10)
[2017-11-06] MEDS ORDERED: INSULIN REGULAR 100 UNIT/ML IV PRN (11:10)
[2017-11-06] MEDS ORDERED: ONDANSETRON 4 MG/2 ML VIAL IV PRN (11:10)
[2017-11-06] MEDS ORDERED: CHLORHEXIDINE 4% SOLN 118 ML BOTTLE TOP PRN (11:10)
[2017-11-06] MEDS ORDERED: ACETAMINOPHEN 650 MG SUPP RECTAL PRN (11:10)
[2017-11-06] MEDS ORDERED: SODIUM CHLORIDE 0.9% 250 ML IV PRN (11:10)
[2017-11-06] MEDS: THEOPHYLLINE ER (24 HR) 400 MG CAPSULE PO SCH (11:11)
[2017-11-06] MEDS: predniSONE 10 MG TABLET PO SCH (11:11)
[2017-11-06] MEDS: clonazePAM 0.5 MG TABLET PO SCH (11:12)
[2017-11-06] MEDS: ASPIRIN EC 81 MG TABLET PO SCH (11:12)
[2017-11-06] MEDS: PARoxetine 20 MG TABLET PO SCH (11:13)
[2017-11-06] MEDS: ALLOPURINOL 300 MG TABLET PO SCH (11:14)
[2017-11-06] MEDS: CHLORHEXIDINE 0.12% ORAL RINSE 60 ML BOTTLE SWISH/SPIT SCH ×2 (11:14→21:07)
[2017-11-06] MEDS: FAMOTIDINE 20 MG TABLET PO SCH (11:14)
[2017-11-06] MEDS: FINASTERIDE 5 MG TABLET PO SCH (11:14)
[2017-11-06] MEDS: MAGNESIUM CHLORIDE 64 MG TABLET PO SCH (11:14)
[2017-11-06] MEDS: ALBUMIN 5% 12.5 GM in PREMIX 1 EACH IV PRN ×3 (11:15→13:00)
[2017-11-06] MEDS ORDERED: SEVOFLURANE 1 UNIT/15 MINUTE INH ONE (11:19)
[2017-11-06] MEDS ORDERED: INSULIN REGULAR DRIP 100 ML IV SCH (11:30)
[2017-11-06 11:41] LABS: ABG Base Excess -0.1 MMOL/L (-2.5-2.5); ABG HCO3 24.4 MMOL/L (20-26); ABG Oxygen Saturation 99.3 % (95-100); ABG PCO2 41.3 MM HG (35-48); ABG PH 7.388 (7.35-7.45); ABG TCO2 22.7 MMOL/L (23-27); Basophils % 1.7 % (0.0-0.8); Glucose Heart Surgery 174 MG/DL (74-106); Hematocrit 28.5 VOL% (42.0-52.0); Hematocrit Heart Surgery 30.2 PERCENT (42-52); Hemoglobin 9.8 GM/DL (14.0-18.0); Hemoglobin Heart Surgery 9.7 G/DL (14.0-18.0); Lymphocytes # 0.4 10*3/uL (1.4-4.0); Lymphocytes % 36.7 % (21.2-54.2); Mean Corpuscular HGB Conc 34.4 GM/DL (32-36); Mean Corpuscular Hemoglobin 32 PG (27-34); Mean Corpuscular Volume 91.9 FL (87-102); Mean Platelet Volume 11.2 FL (9.6-12.0); Monocytes # 0.4 10*3/uL (0.11-0.8); Monocytes % 32.5 % (1.7-12.7); Neutrophils # 0.4 10*3/uL (1.4-7.4); Neutrophils % 29.1 % (38.7-73.9); Platelet Count 100 T/CUMM (130-400); Potassium Heart/CVR 3.2 MMOL/L (3.5-5.1); Red Cell Distribution Width 14.9 % (9.3-17.3); White Blood Count 1.2 T/CUMM (4-12)
[2017-11-06 11:57] LABS: INR 1.4; PT Patient Result 14.5 SECS; Partial Thromboplastin Time 32.5 SECS (0-40)
[2017-11-06] MEDS ORDERED: SODIUM CHLORIDE 0.9% 1,000 ML IV PRN ×3 (11:58→15:20)
[2017-11-06] MEDS: POTASSIUM CHLORIDE RIDER 20 MEQ in PREMIX 1 EACH IV PRN ×4 (12:00→22:47)
[2017-11-06] MEDS ORDERED: PROTAMINE SULFATE 50 MG/5 ML VIAL IV ONE ×2 (12:00→12:01)
[2017-11-06 12:15] LABS: Band Neutrophils 1 % (0-10); Hypochromasia 1+; Lymphocytes 43 % (20-55); Platelet Estimate Decreased; Segmented Neutrophils 29 % (50-85); Total Cells Counted 100
[2017-11-06 12:18] LABS: Calcium 8.8 MG/DL (8.5-10.1); Osmolality,Calculated 278.7 MOS/KG (273-304); Potassium 3.3 MMOL/L (3.5-5.1)
[2017-11-06 12:57] LABS: ABG Base Excess -2.7 MMOL/L (-2.5-2.5); ABG HCO3 22.2 MMOL/L (20-26); ABG Oxygen Saturation 99.5 % (95-100); ABG PCO2 43.3 MM HG (35-48); ABG PH 7.333 (7.35-7.45); ABG TCO2 21.9 MMOL/L (23-27); Glucose Heart Surgery 187 MG/DL (74-106); Hematocrit Heart Surgery 21.6 PERCENT (42-52); Hemoglobin Heart Surgery 6.9 G/DL (14.0-18.0); Potassium Heart/CVR 3.8 MMOL/L (3.5-5.1)
[2017-11-06] MEDS ORDERED: THROMBIN TOPICAL (RECOMBINANT) 5,000 UNIT VIAL TOP ONE (15:02)
[2017-11-06 15:29] LABS: Hematocrit 26.6 VOL% (42.0-52.0); Hemoglobin 8.9 GM/DL (14.0-18.0)
[2017-11-06] MEDS ORDERED: CALCIUM GLUCONATE 2,000 MG in SODIUM CHLORIDE 0.9% 100 ML IV ONE (17:00)
[2017-11-06] MEDS: HYDROCORTISONE 100 MG VIAL IV SCH ×2 (17:30→23:23)
[2017-11-06] MEDS: MORPHINE 10 MG/1 ML VIAL IV PRN ×2 (18:44→23:28)
[2017-11-06] MEDS: CEFUROXIME INJ 1,500 MG in SYRINGE 1 EACH IV SCH (18:45)
[2017-11-06] MEDS ORDERED: hydrALAZINE 20 MG/1 ML VIAL ONE (18:53)
[2017-11-06] MEDS ORDERED: hydrALAZINE 20 MG/1 ML VIAL IV ONE (19:00)
[2017-11-06] MEDS ORDERED: NITROGLYCERIN DRIP 50 MG/250 ML BOTTLE IV PRN (19:00)
[2017-11-06 19:14] LABS: Hematocrit 33.4 VOL% (42.0-52.0); Hemoglobin 11.4 GM/DL (14.0-18.0)
[2017-11-06 20:24] LABS: ABG Base Excess -3.1 MMOL/L (-2.5-2.5); ABG HCO3 21.9 MMOL/L (20-26); ABG Oxygen Saturation 99.5 % (95-100); ABG PCO2 45.9 MM HG (35-48); ABG PH 7.313 (7.35-7.45); Glucose Heart Surgery 130 MG/DL (74-106); Hematocrit Heart Surgery 34.5 PERCENT (42-52); Hemoglobin Heart Surgery 11.2 G/DL (14.0-18.0); Potassium Heart/CVR 3.3 MMOL/L (3.5-5.1)
[2017-11-06] MEDS: SODIUM BICARB INJ 50 MEQ in SODIUM CHLORIDE 0.45% 1,000 ML IV SCH (20:54)
[2017-11-06 22:29] LABS: ABG Base Excess -0.3 MMOL/L (-2.5-2.5); ABG HCO3 24.2 MMOL/L (20-26); ABG Oxygen Saturation 98.3 % (95-100); ABG PCO2 38.9 MM HG (35-48); ABG PH 7.411 (7.35-7.45); ABG PO2 144.2 MM HG (80-95); ABG TCO2 25.4 MMOL/L (23-27); Glucose Heart Surgery 101 MG/DL (74-106); Hemoglobin Heart Surgery 11.6 G/DL (14.0-18.0); Potassium Heart/CVR 4.1 MMOL/L (3.5-5.1)
[2017-11-07] MEDS: ALBUTEROL/IPRATROPIUM 3 ML NEB RESP TX SCH ×4 (00:29→19:02)
[2017-11-07] MEDS: SODIUM CHLORIDE 0.45% 1,000 ML IV SCH ×2 (00:39→08:14)
[2017-11-07] MEDS: MORPHINE 10 MG/1 ML VIAL IV PRN ×2 (02:16→04:54)
[2017-11-07 04:24] LABS: ABG HCO3 22.6 MMOL/L (20-26); ABG Oxygen Saturation 97.6 % (95-100); ABG PCO2 42.6 MM HG (35-48); ABG PH 7.342 (7.35-7.45); ABG PO2 112.5 MM HG (80-95); ABG TCO2 23.9 MMOL/L (23-27); Glucose Heart Surgery 106 MG/DL (74-106); Hemoglobin Heart Surgery 11.5 G/DL (14.0-18.0); Potassium Heart/CVR 3.6 MMOL/L (3.5-5.1)
[2017-11-07 04:46] LABS: Hematocrit 31.6 VOL% (42.0-52.0); Lymphocytes # 0.3 10*3/uL (1.4-4.0); Lymphocytes % 21.7 % (21.2-54.2); Mean Corpuscular HGB Conc 34.8 GM/DL (32-36); Mean Corpuscular Hemoglobin 29 PG (27-34); Mean Corpuscular Volume 84.5 FL (87-102); Mean Platelet Volume 12.3 FL (9.6-12.0); Monocytes # 0.4 10*3/uL (0.11-0.8); Monocytes % 28.3 % (1.7-12.7); NRBC # 0.03 10*3/uL; Neutrophils # 0.7 10*3/uL (1.4-7.4); Platelet Count 68 T/CUMM (130-400); Red Blood Count 3.74 MC/CUMM (3.8-5.5); Red Cell Distribution Width 16.3 % (9.3-17.3); White Blood Count 1.4 T/CUMM (4-12)
[2017-11-07 05:18] LABS: Calcium 7.8 MG/DL (8.5-10.1); Potassium 3.7 MMOL/L (3.5-5.1)
[2017-11-07 05:51] LABS: Hypochromasia 1+; Lymphocytes 19 % (20-55); Microcytosis 1+; Platelet Estimate Decreased; Segmented Neutrophils 60 % (50-85); Total Cells Counted 100
[2017-11-07] MEDS: POTASSIUM CHLORIDE RIDER 20 MEQ in PREMIX 1 EACH IV PRN (06:02)
[2017-11-07] MEDS: MAGNESIUM SULF RIDER 2 GM in PREMIX 1 EACH IV PRN (06:11)
[2017-11-07] MEDS: POTASSIUM CHLORIDE RIDER 10 MEQ in PREMIX 1 EACH IV PRN (06:35)
[2017-11-07] MEDS: HYDROCORTISONE 100 MG VIAL IV SCH ×3 (06:37→23:47)
[2017-11-07] MEDS: CEFUROXIME INJ 1,500 MG in SYRINGE 1 EACH IV SCH ×2 (06:38→19:41)
[2017-11-07] MEDS: AMPICILLIN INJ 2,000 MG in SODIUM CHLORIDE 0.9% 100 ML IV SCH ×3 (06:38→19:15)
[2017-11-07] MEDS: ALBUMIN 5% 12.5 GM in PREMIX 1 EACH IV PRN ×2 (06:55→08:08)
[2017-11-07] MEDS ORDERED: FUROSEMIDE 40 MG/4 ML VIAL IV ONE (07:34)
[2017-11-07] MEDS: INSULIN REGULAR 100 UNIT/ML SUBCUT SCH ×4 (08:29→20:37)
[2017-11-07 08:35] LABS: ABG Base Excess -4.7 MMOL/L (-2.5-2.5); ABG HCO3 20.5 MMOL/L (20-26); ABG Oxygen Saturation 96.2 % (95-100); ABG PCO2 47.6 MM HG (35-48); ABG PH 7.277 (7.35-7.45); ABG PO2 84.6 MM HG (80-95); ABG TCO2 20.4 MMOL/L (23-27); Glucose Heart Surgery 119 MG/DL (74-106); Hematocrit Heart Surgery 32.5 PERCENT (42-52); Hemoglobin Heart Surgery 10.5 G/DL (14.0-18.0); Potassium Heart/CVR 3.9 MMOL/L (3.5-5.1)
[2017-11-07] MEDS: CHLORHEXIDINE 0.12% ORAL RINSE 60 ML BOTTLE SWISH/SPIT SCH ×2 (08:53→20:41)
[2017-11-07] MEDS: ASPIRIN EC 325 MG TABLET PO SCH (08:53)
[2017-11-07] MEDS: PANTOPRAZOLE 40 MG VIAL IV SCH (08:53)
[2017-11-07] MEDS: FUROSEMIDE 40 MG TABLET PO SCH (08:53)
[2017-11-07] MEDS ORDERED: MAGNESIUM SULF RIDER 4 GM in PREMIX 1 EACH IV PRN (09:18)
[2017-11-07] MEDS ORDERED: MAGNESIUM SULF RIDER 2 GM in PREMIX 1 EACH IV PRN (09:18)
[2017-11-07] MEDS: SODIUM BICARB INJ 50 MEQ in SODIUM CHLORIDE 0.45% 1,000 ML IV SCH ×2 (09:36→16:34)
[2017-11-07 09:57] LABS: ABG Base Excess -4.2 MMOL/L (-2.5-2.5); ABG HCO3 20.9 MMOL/L (20-26); ABG Oxygen Saturation 97.3 % (95-100); ABG PH 7.302 (7.35-7.45); ABG PO2 91.2 MM HG (80-95); ABG TCO2 20.4 MMOL/L (23-27); Glucose Heart Surgery 123 MG/DL (74-106); Hematocrit Heart Surgery 31.6 PERCENT (42-52); Hemoglobin Heart Surgery 10.2 G/DL (14.0-18.0); Potassium Heart/CVR 3.7 MMOL/L (3.5-5.1)
[2017-11-07] MEDS: ATORVASTATIN 40 MG TABLET PO SCH (20:38)
[2017-11-08] MEDS: INSULIN REGULAR 100 UNIT/ML SUBCUT SCH ×7 (00:12→23:13)
[2017-11-08] MEDS: AMPICILLIN INJ 2,000 MG in SODIUM CHLORIDE 0.9% 100 ML IV SCH ×5 (00:20→23:38)
[2017-11-08] MEDS: ALBUTEROL/IPRATROPIUM 3 ML NEB RESP TX SCH ×4 (00:24→19:18)
[2017-11-08] MEDS: SODIUM BICARB INJ 50 MEQ in SODIUM CHLORIDE 0.45% 1,000 ML IV SCH ×3 (02:28→15:29)
[2017-11-08] MEDS ORDERED: METOPROLOL TARTRATE 5 MG/5 ML VIAL IV ONE ×4 (03:13→12:58)
[2017-11-08] MEDS ORDERED: AMIODARONE INJ 150 MG in DEXTROSE 5% 100 ML IV ONE ×2 (03:28→08:16)
[2017-11-08] MEDS ORDERED: AMIODARONE 150 MG/3 ML VIAL ONE ×2 (03:31→03:37)
[2017-11-08 03:37] LABS: Hematocrit 31.8 VOL% (42.0-52.0); Hemoglobin 10.9 GM/DL (14.0-18.0); Immature Granulocytes % 0.4 %; Immature Granulocytes Absolute 0.01 #; Lymphocytes # 0.3 10*3/uL (1.4-4.0); Lymphocytes % 14.3 % (21.2-54.2); Mean Corpuscular HGB Conc 34.3 GM/DL (32-36); Mean Corpuscular Hemoglobin 30 PG (27-34); Mean Corpuscular Volume 87.1 FL (87-102); Mean Platelet Volume 11.6 FL (9.6-12.0); Monocytes # 0.8 10*3/uL (0.11-0.8); Monocytes % 35.7 % (1.7-12.7); NRBC # 0.02 10*3/uL; Neutrophils # 1.1 10*3/uL (1.4-7.4); Neutrophils % 49.6 % (38.7-73.9); Platelet Count 71 T/CUMM (130-400); Red Blood Count 3.65 MC/CUMM (3.8-5.5); Red Cell Distribution Width 16.6 % (9.3-17.3); White Blood Count 2.3 T/CUMM (4-12)
[2017-11-08 03:45] LABS: Calcium 8.5 MG/DL (8.5-10.1); Osmolality,Calculated 287.1 MOS/KG (273-304); Potassium 3.1 MMOL/L (3.5-5.1)
[2017-11-08] MEDS: METOPROLOL TARTRATE 5 MG/5 ML VIAL IV SCH ×2 (03:52→03:53)
[2017-11-08] MEDS: AMIODARONE INJ 450 MG in DEXTROSE 5% 241 ML IV SCH ×3 (03:52→18:32)
[2017-11-08] MEDS: MAGNESIUM SULF RIDER 2 GM in PREMIX 1 EACH IV PRN (04:05)
[2017-11-08] MEDS: POTASSIUM CHLORIDE RIDER 20 MEQ in PREMIX 1 EACH IV PRN ×4 (04:05→20:53)
[2017-11-08 04:31] LABS: Band Neutrophils 18 % (0-10); Lymphocytes 16 % (20-55); Nucleated Red Blood Cells 1 (0-5); Segmented Neutrophils 28 % (50-85); Total Cells Counted 100
[2017-11-08 04:32] LABS: Anisocytosis 1+
[2017-11-08 04:33] LABS: Platelet Estimate Decreased
[2017-11-08] MEDS: SODIUM CHLORIDE 0.45% 1,000 ML IV SCH (05:02)
[2017-11-08] MEDS: PANTOPRAZOLE 40 MG VIAL IV SCH (08:33)
[2017-11-08] MEDS: ASPIRIN EC 325 MG TABLET PO SCH (08:34)
[2017-11-08] MEDS: FUROSEMIDE 40 MG TABLET PO SCH (08:34)
[2017-11-08] MEDS: HYDROCORTISONE 100 MG VIAL IV SCH ×3 (08:35→23:38)
[2017-11-08] MEDS: CHLORHEXIDINE 0.12% ORAL RINSE 60 ML BOTTLE SWISH/SPIT SCH ×2 (08:39→20:14)
[2017-11-08] MEDS: POTASSIUM CHLORIDE RIDER 10 MEQ in PREMIX 1 EACH IV PRN ×6 (08:58→21:33)
[2017-11-08] MEDS ORDERED: FUROSEMIDE 40 MG/4 ML VIAL IV ONE (09:59)
[2017-11-08] MEDS: CARVEDILOL 6.25 MG TABLET PO SCH ×2 (10:39→20:12)
[2017-11-08] MEDS ORDERED: DILTIAZEM 50 MG/10 ML VIAL IV ONE (18:03)
[2017-11-08] MEDS ORDERED: DILTIAZEM 25 MG/5 ML VIAL IV ONE (18:04)
[2017-11-08] MEDS ORDERED: DILTIAZEM 100 MG VIAL.ADD IV ONE (18:05)
[2017-11-08] MEDS: DILTIAZEM INJ 100 MG in SODIUM CHLORIDE 0.9% 100 ML IV SCH (19:16)
[2017-11-08] MEDS: DILTIAZEM 60 MG TABLET PO SCH (20:12)
[2017-11-08] MEDS: ATORVASTATIN 40 MG TABLET PO SCH (20:13)
[2017-11-09] MEDS: POTASSIUM CHLORIDE RIDER 20 MEQ in PREMIX 1 EACH IV PRN ×4 (00:19→08:57)
[2017-11-09] MEDS: ALBUTEROL/IPRATROPIUM 3 ML NEB RESP TX SCH ×4 (01:09→20:48)
[2017-11-09 03:43] LABS: Basophils % 0.4 % (0.0-0.8); Hematocrit 36.5 VOL% (42.0-52.0); Hemoglobin 12.7 GM/DL (14.0-18.0); Immature Granulocytes % 0.8 %; Immature Granulocytes Absolute 0.04 #; Lymphocytes # 0.6 10*3/uL (1.4-4.0); Lymphocytes % 12.4 % (21.2-54.2); Mean Corpuscular HGB Conc 34.8 GM/DL (32-36); Mean Corpuscular Hemoglobin 30 PG (27-34); Mean Corpuscular Volume 86.9 FL (87-102); Mean Platelet Volume 12.1 FL (9.6-12.0); Monocytes # 1.1 10*3/uL (0.11-0.8); Monocytes % 22.6 % (1.7-12.7); NRBC # 0.02 10*3/uL; Neutrophils # 3.2 10*3/uL (1.4-7.4); Neutrophils % 63.8 % (38.7-73.9); Platelet Count 87 T/CUMM (130-400); Red Cell Distribution Width 16.4 % (9.3-17.3)
[2017-11-09] MEDS: SODIUM CHLORIDE 0.45% 1,000 ML IV SCH (03:47)
[2017-11-09] MEDS: INSULIN REGULAR 100 UNIT/ML SUBCUT SCH ×5 (03:47→21:26)
[2017-11-09 04:04] LABS: Calcium 8.6 MG/DL (8.5-10.1); Potassium 3.8 MMOL/L (3.5-5.1)
[2017-11-09] MEDS: POTASSIUM CHLORIDE RIDER 10 MEQ in PREMIX 1 EACH IV PRN ×2 (04:58→09:30)
[2017-11-09 05:31] LABS: Band Neutrophils 3 % (0-10); Lymphocytes 11 % (20-55); Nucleated Red Blood Cells 2 (0-5); Segmented Neutrophils 70 % (50-85); Total Cells Counted 100
[2017-11-09 05:32] LABS: Atypical Lymphocytes Few; Hypochromasia 1+; Microcytosis 1+; Platelet Estimate Decreased
[2017-11-09] MEDS: AMPICILLIN INJ 2,000 MG in SODIUM CHLORIDE 0.9% 100 ML IV SCH ×3 (05:33→20:55)
[2017-11-09] MEDS: DILTIAZEM INJ 100 MG in SODIUM CHLORIDE 0.9% 100 ML IV SCH (05:34)
[2017-11-09] MEDS: ASPIRIN EC 325 MG TABLET PO SCH (08:45)
[2017-11-09] MEDS: DILTIAZEM 60 MG TABLET PO SCH ×3 (08:45→20:47)
[2017-11-09] MEDS: FUROSEMIDE 40 MG TABLET PO SCH (08:46)
[2017-11-09] MEDS: CARVEDILOL 6.25 MG TABLET PO SCH ×2 (08:46→20:48)
[2017-11-09] MEDS: HYDROCORTISONE 100 MG VIAL IV SCH ×3 (08:46→22:50)
[2017-11-09] MEDS: PANTOPRAZOLE 40 MG VIAL IV SCH (08:48)
[2017-11-09] MEDS: CHLORHEXIDINE 0.12% ORAL RINSE 60 ML BOTTLE SWISH/SPIT SCH ×2 (08:53→21:26)
[2017-11-09] MEDS: AMIODARONE INJ 450 MG in DEXTROSE 5% 241 ML IV SCH (09:31)
[2017-11-09] MEDS: AMIODARONE 200 MG TABLET PO SCH (09:40)
[2017-11-09] MEDS ORDERED: GLYCOPYRROLATE IH SCH (12:52)
[2017-11-09] MEDS ORDERED: INDACATEROL IH SCH (12:52)
[2017-11-09] MEDS ORDERED: ALBUTEROL/IPRATROPIUM 3 ML NEB RESP TX PRN (13:05)
[2017-11-09] MEDS ORDERED: FUROSEMIDE 40 MG/4 ML VIAL ONE (13:49)
[2017-11-09] MEDS ORDERED: FUROSEMIDE 40 MG/4 ML VIAL IV ONE (13:54)
[2017-11-09] MEDS: clonazePAM 0.5 MG TABLET PO SCH ×2 (15:49→20:47)
[2017-11-09] MEDS: ATORVASTATIN 40 MG TABLET PO SCH (20:48)
[2017-11-09] MEDS: TAMSULOSIN 0.4 MG CAPSULE PO SCH (20:48)
[2017-11-09] MEDS: guaiFENesin/DM ER 600-30 MG TABLET PO SCH (20:48)
[2017-11-09] MEDS: PARoxetine 20 MG TABLET PO SCH (20:48)
[2017-11-10] MEDS: AMPICILLIN INJ 2,000 MG in SODIUM CHLORIDE 0.9% 100 ML IV SCH ×4 (00:15→21:19)
[2017-11-10] MEDS: INSULIN REGULAR 100 UNIT/ML SUBCUT SCH ×7 (00:26→21:47)
[2017-11-10] MEDS: ALBUTEROL/IPRATROPIUM 3 ML NEB RESP TX SCH ×4 (01:07→20:21)
[2017-11-10] MEDS: clonazePAM 0.5 MG TABLET PO SCH ×3 (08:43→21:15)
[2017-11-10] MEDS: guaiFENesin/DM ER 600-30 MG TABLET PO SCH ×2 (08:43→22:00)
[2017-11-10] MEDS: CARVEDILOL 6.25 MG TABLET PO SCH ×2 (08:44→21:15)
[2017-11-10] MEDS: FUROSEMIDE 40 MG TABLET PO SCH (08:44)
[2017-11-10] MEDS: ASPIRIN EC 325 MG TABLET PO SCH (08:44)
[2017-11-10] MEDS: DILTIAZEM 60 MG TABLET PO SCH ×3 (08:44→21:15)
[2017-11-10] MEDS: ALLOPURINOL 300 MG TABLET PO SCH (08:44)
[2017-11-10] MEDS: FINASTERIDE 5 MG TABLET PO SCH (08:44)
[2017-11-10] MEDS: PARoxetine 20 MG TABLET PO SCH ×2 (08:44→21:15)
[2017-11-10] MEDS: AMIODARONE 200 MG TABLET PO SCH (08:44)
[2017-11-10] MEDS: HYDROCORTISONE 100 MG VIAL IV SCH ×3 (08:44→23:20)
[2017-11-10] MEDS: CHLORHEXIDINE 0.12% ORAL RINSE 60 ML BOTTLE SWISH/SPIT SCH ×2 (08:45→21:19)
[2017-11-10] MEDS: PANTOPRAZOLE 40 MG VIAL IV SCH (08:45)
[2017-11-10 09:48] LABS: Basophils % 0.2 % (0.0-0.8); Hematocrit 36.3 VOL% (42.0-52.0); Hemoglobin 12.3 GM/DL (14.0-18.0); Immature Granulocytes % 1.2 %; Immature Granulocytes Absolute 0.06 #; Lymphocytes # 0.6 10*3/uL (1.4-4.0); Lymphocytes % 11.1 % (21.2-54.2); Mean Corpuscular HGB Conc 33.9 GM/DL (32-36); Mean Corpuscular Hemoglobin 29 PG (27-34); Mean Corpuscular Volume 86.8 FL (87-102); Mean Platelet Volume 12.6 FL (9.6-12.0); Monocytes # 0.6 10*3/uL (0.11-0.8); Monocytes % 11.1 % (1.7-12.7); NRBC # 0.02 10*3/uL; Neutrophils # 3.9 10*3/uL (1.4-7.4); Neutrophils % 76.4 % (38.7-73.9); Red Blood Count 4.18 MC/CUMM (3.8-5.5); Red Cell Distribution Width 15.7 % (9.3-17.3); White Blood Count 5.1 T/CUMM (4-12)
[2017-11-10 09:51] LABS: Platelet Count 95 T/CUMM (130-400)
[2017-11-10 10:11] LABS: Calcium 8.4 MG/DL (8.5-10.1); Osmolality,Calculated 288.5 MOS/KG (273-304)
[2017-11-10] MEDS: POTASSIUM CHLORIDE RIDER 10 MEQ in PREMIX 1 EACH IV PRN ×6 (10:20→23:22)
[2017-11-10 10:48] LABS: Hypochromasia 1+; Lymphocytes 20 % (20-55); Microcytosis Slight; Segmented Neutrophils 72 % (50-85); Total Cells Counted 100
[2017-11-10 10:49] LABS: Platelet Estimate Decreased
[2017-11-10] MEDS: TAMSULOSIN 0.4 MG CAPSULE PO SCH (21:15)
[2017-11-10] MEDS: ATORVASTATIN 40 MG TABLET PO SCH (21:15)
[2017-11-11] MEDS: POTASSIUM CHLORIDE RIDER 10 MEQ in PREMIX 1 EACH IV PRN ×2 (00:20→09:40)
[2017-11-11] MEDS: ALBUTEROL/IPRATROPIUM 3 ML NEB RESP TX SCH ×4 (00:37→19:13)
[2017-11-11] MEDS: AMPICILLIN INJ 2,000 MG in SODIUM CHLORIDE 0.9% 100 ML IV SCH ×3 (01:16→13:48)
[2017-11-11 05:56] LABS: Basophils % 0.4 % (0.0-0.8); Hematocrit 31.2 VOL% (42.0-52.0); Immature Granulocytes % 1.5 %; Immature Granulocytes Absolute 0.08 #; Lymphocytes # 0.4 10*3/uL (1.4-4.0); Mean Corpuscular HGB Conc 35.3 GM/DL (32-36); Mean Corpuscular Hemoglobin 30 PG (27-34); Mean Corpuscular Volume 85.7 FL (87-102); Mean Platelet Volume 12.3 FL (9.6-12.0); Monocytes # 0.7 10*3/uL (0.11-0.8); Monocytes % 13.4 % (1.7-12.7); NRBC # 0.02 10*3/uL; Neutrophils # 4.1 10*3/uL (1.4-7.4); Neutrophils % 76.7 % (38.7-73.9); Red Blood Count 3.64 MC/CUMM (3.8-5.5); Red Cell Distribution Width 15.7 % (9.3-17.3); White Blood Count 5.4 T/CUMM (4-12)
[2017-11-11 05:58] LABS: Platelet Count 95 T/CUMM (130-400)
[2017-11-11 06:16] LABS: Calcium 8.4 MG/DL (8.5-10.1); Osmolality,Calculated 283.8 MOS/KG (273-304); Potassium 3.4 MMOL/L (3.5-5.1)
[2017-11-11 06:21] LABS: Band Neutrophils 2 % (0-10); Lymphocytes 13 % (20-55); Platelet Estimate Decreased; Segmented Neutrophils 81 % (50-85); Total Cells Counted 100
[2017-11-11] MEDS: POTASSIUM CHLORIDE RIDER 20 MEQ in PREMIX 1 EACH IV PRN ×2 (06:23→21:38)
[2017-11-11] MEDS ORDERED: FUROSEMIDE 40 MG/4 ML VIAL IV ONE (06:43)
[2017-11-11] MEDS: INSULIN REGULAR 100 UNIT/ML SUBCUT SCH ×4 (09:39→20:45)
[2017-11-11] MEDS: DILTIAZEM 60 MG TABLET PO SCH ×3 (09:42→20:41)
[2017-11-11] MEDS: guaiFENesin/DM ER 600-30 MG TABLET PO SCH ×2 (09:42→20:41)
[2017-11-11] MEDS: clonazePAM 0.5 MG TABLET PO SCH ×3 (09:42→20:41)
[2017-11-11] MEDS: FUROSEMIDE 40 MG TABLET PO SCH (09:43)
[2017-11-11] MEDS: FINASTERIDE 5 MG TABLET PO SCH (09:43)
[2017-11-11] MEDS: ALLOPURINOL 300 MG TABLET PO SCH (09:43)
[2017-11-11] MEDS: ASPIRIN EC 325 MG TABLET PO SCH (09:43)
[2017-11-11] MEDS: PARoxetine 20 MG TABLET PO SCH ×2 (09:43→20:42)
[2017-11-11] MEDS: AMIODARONE 200 MG TABLET PO SCH (09:43)
[2017-11-11] MEDS: PANTOPRAZOLE 40 MG VIAL IV SCH (09:44)
[2017-11-11] MEDS: CARVEDILOL 6.25 MG TABLET PO SCH ×2 (09:47→20:42)
[2017-11-11] MEDS: HYDROCORTISONE 100 MG VIAL IV SCH ×3 (09:48→23:34)
[2017-11-11] MEDS: CHLORHEXIDINE 0.12% ORAL RINSE 60 ML BOTTLE SWISH/SPIT SCH ×2 (09:48→20:47)
[2017-11-11] MEDS: TAMSULOSIN 0.4 MG CAPSULE PO SCH (20:41)
[2017-11-11] MEDS: ATORVASTATIN 40 MG TABLET PO SCH (20:42)
[2017-11-12] MEDS: ALBUTEROL/IPRATROPIUM 3 ML NEB RESP TX SCH ×4 (00:12→18:56)
[2017-11-12 05:31] LABS: Basophils % 0.1 % (0.0-0.8); Hematocrit 33.2 VOL% (42.0-52.0); Hemoglobin 11.3 GM/DL (14.0-18.0); Immature Granulocytes % 1.5 %; Immature Granulocytes Absolute 0.11 #; Lymphocytes # 0.5 10*3/uL (1.4-4.0); Lymphocytes % 7.3 % (21.2-54.2); Mean Corpuscular Hemoglobin 30 PG (27-34); Mean Corpuscular Volume 88.3 FL (87-102); Mean Platelet Volume 12.8 FL (9.6-12.0); Monocytes # 0.9 10*3/uL (0.11-0.8); Monocytes % 11.9 % (1.7-12.7); Neutrophils # 5.9 10*3/uL (1.4-7.4); Neutrophils % 79.2 % (38.7-73.9); Platelet Count 98 T/CUMM (130-400); Red Blood Count 3.76 MC/CUMM (3.8-5.5); Red Cell Distribution Width 15.3 % (9.3-17.3); White Blood Count 7.4 T/CUMM (4-12)
[2017-11-12 05:46] LABS: Calcium 8.6 MG/DL (8.5-10.1); Potassium 3.6 MMOL/L (3.5-5.1)
[2017-11-12 05:51] LABS: Hypochromasia 1+; Ovalocytes Slight; Platelet Estimate Decreased
[2017-11-12 05:52] LABS: Microcytosis Slight
[2017-11-12] MEDS ORDERED: DILTIAZEM CD 240 MG CAPSULE PO SCH (09:00)
[2017-11-12] MEDS: PARoxetine 20 MG TABLET PO SCH ×2 (09:19→21:08)
[2017-11-12] MEDS: FINASTERIDE 5 MG TABLET PO SCH (09:19)
[2017-11-12] MEDS: AMIODARONE 200 MG TABLET PO SCH (09:19)
[2017-11-12] MEDS: ASPIRIN EC 325 MG TABLET PO SCH (09:19)
[2017-11-12] MEDS: clonazePAM 0.5 MG TABLET PO SCH ×3 (09:19→21:07)
[2017-11-12] MEDS: CARVEDILOL 6.25 MG TABLET PO SCH ×2 (09:19→21:08)
[2017-11-12] MEDS: ALLOPURINOL 300 MG TABLET PO SCH (09:19)
[2017-11-12] MEDS: FUROSEMIDE 40 MG TABLET PO SCH (09:19)
[2017-11-12] MEDS: guaiFENesin/DM ER 600-30 MG TABLET PO SCH ×2 (09:19→21:07)
[2017-11-12] MEDS: DILTIAZEM CD 180 MG CAPSULE PO SCH (09:20)
[2017-11-12] MEDS: HYDROCORTISONE 100 MG VIAL IV SCH ×2 (09:20→18:22)
[2017-11-12] MEDS: PANTOPRAZOLE 40 MG VIAL IV SCH (09:24)
[2017-11-12] MEDS: INSULIN REGULAR 100 UNIT/ML SUBCUT SCH ×4 (09:26→21:09)
[2017-11-12] MEDS: CHLORHEXIDINE 0.12% ORAL RINSE 60 ML BOTTLE SWISH/SPIT SCH ×2 (09:30→21:09)
[2017-11-12] MEDS ORDERED: SODIUM PHOSPHATE ENEMA 133 ML BOTTLE RECTAL ONE (13:27)
[2017-11-12] MEDS ORDERED: MAGNESIUM HYDROXIDE SUSP 30 ML UDCUP PO PRN (13:27)
[2017-11-12] MEDS: ATORVASTATIN 40 MG TABLET PO SCH (21:07)
[2017-11-12] MEDS: TAMSULOSIN 0.4 MG CAPSULE PO SCH (21:07)
[2017-11-13] MEDS: ALBUTEROL/IPRATROPIUM 3 ML NEB RESP TX SCH ×2 (00:33→07:08)
[2017-11-13 04:46] LABS: Basophils % 0.1 % (0.0-0.8); Hematocrit 32.5 VOL% (42.0-52.0); Hemoglobin 10.9 GM/DL (14.0-18.0); Immature Granulocytes % 1.6 %; Immature Granulocytes Absolute 0.13 #; Lymphocytes # 0.7 10*3/uL (1.4-4.0); Lymphocytes % 8.6 % (21.2-54.2); Mean Corpuscular HGB Conc 33.5 GM/DL (32-36); Mean Corpuscular Hemoglobin 30 PG (27-34); Mean Corpuscular Volume 88.3 FL (87-102); Mean Platelet Volume 12.4 FL (9.6-12.0); Monocytes # 1.1 10*3/uL (0.11-0.8); Monocytes % 13.3 % (1.7-12.7); Neutrophils # 6.2 10*3/uL (1.4-7.4); Neutrophils % 76.4 % (38.7-73.9); Platelet Count 97 T/CUMM (130-400); Red Blood Count 3.68 MC/CUMM (3.8-5.5); Red Cell Distribution Width 15.2 % (9.3-17.3); White Blood Count 8.1 T/CUMM (4-12)
[2017-11-13 05:02] LABS: Calcium 8.2 MG/DL (8.5-10.1); Potassium 3.2 MMOL/L (3.5-5.1)
[2017-11-13] MEDS: HYDROCORTISONE 100 MG VIAL IV SCH (05:06)
[2017-11-13 05:11] LABS: Platelet Estimate Decreased
[2017-11-13] MEDS: POTASSIUM CHLORIDE RIDER 20 MEQ in PREMIX 1 EACH IV PRN ×2 (05:12→07:25)
[2017-11-13 08:03] VITALS: BP 116/80
[2017-11-13] MEDS: INSULIN REGULAR 100 UNIT/ML SUBCUT SCH ×2 (08:23→11:46)
[2017-11-13] MEDS: ALLOPURINOL 300 MG TABLET PO SCH (08:44)
[2017-11-13] MEDS: FINASTERIDE 5 MG TABLET PO SCH (08:44)
[2017-11-13] MEDS: DILTIAZEM CD 180 MG CAPSULE PO SCH (08:44)
[2017-11-13] MEDS: clonazePAM 0.5 MG TABLET PO SCH (08:44)
[2017-11-13] MEDS: PANTOPRAZOLE 40 MG VIAL IV SCH (08:45)
[2017-11-13] MEDS: CARVEDILOL 6.25 MG TABLET PO SCH (08:45)
[2017-11-13] MEDS: ASPIRIN EC 325 MG TABLET PO SCH (08:45)
[2017-11-13] MEDS: AMIODARONE 200 MG TABLET PO SCH (08:45)
[2017-11-13] MEDS: guaiFENesin/DM ER 600-30 MG TABLET PO SCH (08:45)
[2017-11-13] MEDS: FUROSEMIDE 40 MG TABLET PO SCH (08:45)
[2017-11-13] MEDS: PARoxetine 20 MG TABLET PO SCH (08:45)
[2017-11-13] MEDS: CHLORHEXIDINE 0.12% ORAL RINSE 60 ML BOTTLE SWISH/SPIT SCH (08:53)
[2017-11-14] MEDS ORDERED: AMIODARONE 200 MG TABLET PO SCH (09:00)
== END 2017-11-13 13:21 | disposition swing bed (61) | DRG 219 ==
LOC: N.TELEN 11-04 14:57 → N.CVR 11-06 07:39 → N.ICU 11-07 11:50 → N.TELES 11-09 12:51
PROVIDERS: ADMIT Thoracic Surgery (Cardiothoracic Vascular Surgery); ATTEND Thoracic Surgery (Cardiothoracic Vascular Surgery)

== ENCOUNTER 2018-03-27 19:04 | Inpatient (IN) ==
[2018-03-27 20:58] LABS: Basophils % 0.2 % (0.0-0.8); Eosinophils % 0.3 % (0.00-10.9); Hematocrit 38.8 VOL% (42.0-52.0); Hemoglobin 13.4 GM/DL (14.0-18.0); Immature Granulocytes % 1.6 %; Immature Granulocytes Absolute 0.25 #; Lymphocytes # 1.8 10*3/uL (1.4-4.0); Lymphocytes % 11.5 % (21.2-54.2); Mean Corpuscular HGB Conc 34.5 GM/DL (32-36); Mean Corpuscular Hemoglobin 32 PG (27-34); Mean Corpuscular Volume 91.1 FL (87-102); Mean Platelet Volume 10.5 FL (9.6-12.0); Monocytes # 1.4 10*3/uL (0.11-0.8); Monocytes % 8.7 % (1.7-12.7); Neutrophils # 12.3 10*3/uL (1.4-7.4); Neutrophils % 77.7 % (38.7-73.9); Platelet Count 227 T/CUMM (130-400); Red Blood Count 4.26 MC/CUMM (3.8-5.5); Red Cell Distribution Width 13.9 % (9.3-17.3); White Blood Count 15.9 T/CUMM (4-12)
[2018-03-27 21:16] LABS: Albumin 3.5 G/DL (3.4-5.0); Bilirubin,Total 0.5 MG/DL (0.2-1.0); Calcium 9.4 MG/DL (8.5-10.1); Osmolality,Calculated 252.1 MOS/KG (273-304); Total Protein 6.7 G/DL (6.4-8.3)
[2018-03-27 21:18] LABS: Potassium 2.4 MMOL/L (3.5-5.1)
[2018-03-27] MEDS ORDERED: POTASSIUM CHLORIDE 20 MEQ TABLET PO STA (22:44)
[2018-03-27] MEDS ORDERED: CEFEPIME 2,000 MG in SODIUM CHLORIDE 0.9% 100 ML IV STA (22:45)
[2018-03-27] MEDS ORDERED: VANCOMYCIN INJ 1,000 MG in SODIUM CHLORIDE 0.9% 250 ML IV STA (22:45)
[2018-03-28] MEDS ORDERED: ALBUTEROL 2.5 MG/3 ML NEB RESP TX PRN (02:21)
[2018-03-28] MEDS ORDERED: MAGNESIUM SULF RIDER 4 GM in PREMIX 1 EACH IV PRN (02:25)
[2018-03-28] MEDS ORDERED: MAGNESIUM SULF RIDER 2 GM in PREMIX 1 EACH IV PRN (02:25)
[2018-03-28] MEDS ORDERED: DOCUSATE SODIUM 100 MG CAPSULE PO PRN (02:44)
[2018-03-28] MEDS ORDERED: ACETAMINOPHEN 325 MG TABLET PO PRN (02:44)
[2018-03-28] MEDS ORDERED: ONDANSETRON 4 MG/2 ML VIAL IV PRN (02:44)
[2018-03-28] MEDS: LEVOFLOXACIN INJ 750 MG in PREMIX 1 EACH IV SCH (03:03)
[2018-03-28] MEDS: methylPREDNISolone SOD SUC 40 MG/1 ML VIAL IV SCH ×3 (03:03→17:58)
[2018-03-28 03:29] LABS: Apearance,Urine CLEAR (Clear); Bilirubin,Urine Negative (Negative); Blood, Urine Negative (Negative); Glucose,Urine (UA) Negative (Negative); Hyaline Casts,Urine 1 /LPF (0-3); Ketones,Urine Negative (Negative); Nitrite,Urine Negative (Negative); Protein,Urine Negative; RBC,Urine 1 /HPF (0-4); Urine Color Yellow (Yellow); Urine Specific Gravity 1.006 (1.001-1.035); Urine Urobilinogen < 2.0 EU/DL (0.2-1.0)
[2018-03-28 03:56] LABS: Basophils % 0.3 % (0.0-0.8); Eosinophils # 0.1 10*3/uL (0.0-0.87); Eosinophils % 0.7 % (0.00-10.9); Hematocrit 37.8 VOL% (42.0-52.0); Hemoglobin 13.1 GM/DL (14.0-18.0); Immature Granulocytes % 1.5 %; Immature Granulocytes Absolute 0.18 #; Lymphocytes # 2.3 10*3/uL (1.4-4.0); Lymphocytes % 18.8 % (21.2-54.2); Mean Corpuscular HGB Conc 34.7 GM/DL (32-36); Mean Corpuscular Hemoglobin 32 PG (27-34); Mean Corpuscular Volume 92.4 FL (87-102); Mean Platelet Volume 10.3 FL (9.6-12.0); Monocytes # 1.2 10*3/uL (0.11-0.8); Monocytes % 9.5 % (1.7-12.7); Neutrophils # 8.5 10*3/uL (1.4-7.4); Neutrophils % 69.2 % (38.7-73.9); Platelet Count 208 T/CUMM (130-400); Red Blood Count 4.09 MC/CUMM (3.8-5.5); Red Cell Distribution Width 13.8 % (9.3-17.3); White Blood Count 12.3 T/CUMM (4-12)
[2018-03-28 04:49] LABS: Calcium 9.2 MG/DL (8.5-10.1); Osmolality,Calculated 258.5 MOS/KG (273-304)
[2018-03-28 04:51] LABS: Apearance,Urine CLEAR (Clear); Bacteria,Urine Occasional /HPF (Few); Bilirubin,Urine Negative (Negative); Blood, Urine Negative (Negative); Glucose,Urine (UA) Negative (Negative); Ketones,Urine Negative (Negative); Nitrite,Urine Negative (Negative); Protein,Urine Negative; RBC,Urine 2 /HPF (0-4); Squamous Epithelial Cell,Urine Occasional /HPF (0-10); Urine Color Straw (Yellow); Urine Specific Gravity 1.006 (1.001-1.035); Urine Urobilinogen < 2.0 EU/DL (0.2-1.0); WBC,Urine <1 /HPF (0-6)
[2018-03-28 04:56] LABS: Potassium 2.5 MMOL/L (3.5-5.1)
[2018-03-28] MEDS: PIPERACILLIN/TAZOBACTAM 3,375 MG in SODIUM CHLORIDE 0.9% 100 ML IV SCH ×3 (06:21→20:56)
[2018-03-28] MEDS: POTASSIUM CHLORIDE 20 MEQ TABLET PO PRN ×4 (06:30→19:04)
[2018-03-28] MEDS: ALBUTEROL/IPRATROPIUM 3 ML NEB RESP TX SCH ×3 (06:50→19:48)
[2018-03-28] MEDS ORDERED: POTASSIUM CHLORIDE 20 MEQ TABLET PO ONE (07:33)
[2018-03-28] MEDS: FUROSEMIDE 40 MG/4 ML VIAL IV SCH ×2 (07:59→16:21)
[2018-03-28] MEDS: DILTIAZEM CD 180 MG CAPSULE PO SCH (14:01)
[2018-03-28] MEDS: ASPIRIN EC 325 MG TABLET PO SCH (14:01)
[2018-03-28] MEDS: CARVEDILOL 6.25 MG TABLET PO SCH ×2 (14:02→20:55)
[2018-03-28] MEDS: AMIODARONE 200 MG TABLET PO SCH (14:02)
[2018-03-28] MEDS: POTASSIUM CHLORIDE 20 MEQ TABLET PO SCH ×3 (16:45→21:02)
[2018-03-28] MEDS: clonazePAM 0.5 MG TABLET PO SCH (21:01)
[2018-03-28] MEDS: ATORVASTATIN 40 MG TABLET PO SCH (21:01)
[2018-03-29] MEDS: ALBUTEROL/IPRATROPIUM 3 ML NEB RESP TX SCH ×4 (01:21→19:36)
[2018-03-29] MEDS: methylPREDNISolone SOD SUC 40 MG/1 ML VIAL IV SCH ×3 (01:34→18:29)
[2018-03-29 05:22] LABS: Basophils % 0.2 % (0.0-0.8); Hematocrit 37.4 VOL% (42.0-52.0); Immature Granulocytes % 2.4 %; Immature Granulocytes Absolute 0.33 #; Lymphocytes # 1.2 10*3/uL (1.4-4.0); Lymphocytes % 8.2 % (21.2-54.2); Mean Corpuscular HGB Conc 34.8 GM/DL (32-36); Mean Corpuscular Hemoglobin 32 PG (27-34); Mean Corpuscular Volume 91.9 FL (87-102); Mean Platelet Volume 10.7 FL (9.6-12.0); Monocytes # 0.5 10*3/uL (0.11-0.8); Monocytes % 3.3 % (1.7-12.7); Neutrophils # 12.1 10*3/uL (1.4-7.4); Neutrophils % 85.9 % (38.7-73.9); Platelet Count 215 T/CUMM (130-400); Red Blood Count 4.07 MC/CUMM (3.8-5.5); Red Cell Distribution Width 13.7 % (9.3-17.3)
[2018-03-29 05:55] LABS: Calcium 9.7 MG/DL (8.5-10.1); Osmolality,Calculated 272.9 MOS/KG (273-304); Potassium 2.9 MMOL/L (3.5-5.1)
[2018-03-29] MEDS: PIPERACILLIN/TAZOBACTAM 3,375 MG in SODIUM CHLORIDE 0.9% 100 ML IV SCH ×3 (06:03→21:21)
[2018-03-29] MEDS: POTASSIUM CHLORIDE 20 MEQ TABLET PO PRN ×2 (06:43→18:43)
[2018-03-29] MEDS: clonazePAM 0.5 MG TABLET PO SCH ×3 (08:44→21:22)
[2018-03-29] MEDS: FUROSEMIDE 40 MG/4 ML VIAL IV SCH (08:45)
[2018-03-29] MEDS: POTASSIUM CHLORIDE 20 MEQ TABLET PO SCH ×2 (08:45→21:22)
[2018-03-29] MEDS: CARVEDILOL 6.25 MG TABLET PO SCH ×2 (08:45→21:22)
[2018-03-29] MEDS: AMIODARONE 200 MG TABLET PO SCH (08:45)
[2018-03-29] MEDS: ASPIRIN EC 325 MG TABLET PO SCH (08:46)
[2018-03-29] MEDS: DILTIAZEM CD 180 MG CAPSULE PO SCH (10:05)
[2018-03-29] MEDS ORDERED: GLYCOPYRROLATE IH SCH (10:30)
[2018-03-29] MEDS ORDERED: INDACATEROL IH SCH (10:30)
[2018-03-29] MEDS: PARoxetine 20 MG TABLET PO SCH (21:21)
[2018-03-29] MEDS: TAMSULOSIN 0.4 MG CAPSULE PO SCH (21:22)
[2018-03-29] MEDS: FAMOTIDINE 20 MG TABLET PO SCH (21:22)
[2018-03-29] MEDS: ATORVASTATIN 40 MG TABLET PO SCH (21:22)
[2018-03-30] MEDS: ALBUTEROL/IPRATROPIUM 3 ML NEB RESP TX SCH ×4 (00:11→19:52)
[2018-03-30] MEDS: LEVOFLOXACIN INJ 750 MG in PREMIX 1 EACH IV SCH (03:45)
[2018-03-30] MEDS: POTASSIUM CHLORIDE 20 MEQ TABLET PO PRN ×2 (03:46→06:00)
[2018-03-30] MEDS: methylPREDNISolone SOD SUC 40 MG/1 ML VIAL IV SCH ×3 (03:46→16:32)
[2018-03-30 05:58] LABS: Basophils % 0.2 % (0.0-0.8); Hematocrit 36.2 VOL% (42.0-52.0); Hemoglobin 12.5 GM/DL (14.0-18.0); Immature Granulocytes % 2.5 %; Immature Granulocytes Absolute 0.45 #; Lymphocytes # 1.2 10*3/uL (1.4-4.0); Lymphocytes % 6.6 % (21.2-54.2); Mean Corpuscular HGB Conc 34.5 GM/DL (32-36); Mean Corpuscular Hemoglobin 32 PG (27-34); Mean Corpuscular Volume 92.6 FL (87-102); Mean Platelet Volume 10.3 FL (9.6-12.0); Monocytes # 0.7 10*3/uL (0.11-0.8); Monocytes % 3.7 % (1.7-12.7); NRBC # 0.02 10*3/uL; Neutrophils # 15.5 10*3/uL (1.4-7.4); Platelet Count 228 T/CUMM (130-400); Red Blood Count 3.91 MC/CUMM (3.8-5.5); White Blood Count 17.8 T/CUMM (4-12)
[2018-03-30] MEDS: PIPERACILLIN/TAZOBACTAM 3,375 MG in SODIUM CHLORIDE 0.9% 100 ML IV SCH ×2 (06:00→18:07)
[2018-03-30 06:32] LABS: Calcium 9.7 MG/DL (8.5-10.1); Osmolality,Calculated 279.8 MOS/KG (273-304); Potassium 3.4 MMOL/L (3.5-5.1)
[2018-03-30] MEDS ORDERED: Fluticasone/Umeclidin/Vilanter [Trelegy Ellipta 100-62.5-25] IH SCH (09:00)
[2018-03-30] MEDS: POTASSIUM CHLORIDE 20 MEQ TABLET PO SCH ×2 (09:02→20:54)
[2018-03-30] MEDS: FINASTERIDE 5 MG TABLET PO SCH (09:09)
[2018-03-30] MEDS: clonazePAM 0.5 MG TABLET PO SCH ×3 (09:09→20:54)
[2018-03-30] MEDS: FAMOTIDINE 20 MG TABLET PO SCH ×2 (09:09→20:54)
[2018-03-30] MEDS: ASPIRIN EC 325 MG TABLET PO SCH (09:09)
[2018-03-30] MEDS: DILTIAZEM CD 180 MG CAPSULE PO SCH (09:09)
[2018-03-30] MEDS: ALLOPURINOL 300 MG TABLET PO SCH (09:09)
[2018-03-30] MEDS: AMIODARONE 200 MG TABLET PO SCH (09:09)
[2018-03-30] MEDS: PARoxetine 20 MG TABLET PO SCH ×2 (09:09→20:54)
[2018-03-30] MEDS: CARVEDILOL 6.25 MG TABLET PO SCH ×2 (09:09→20:54)
[2018-03-30] MEDS: ATORVASTATIN 40 MG TABLET PO SCH (20:54)
[2018-03-30] MEDS: TAMSULOSIN 0.4 MG CAPSULE PO SCH (20:54)
[2018-03-31] MEDS: ALBUTEROL/IPRATROPIUM 3 ML NEB RESP TX SCH ×4 (01:26→19:40)
[2018-03-31] MEDS: methylPREDNISolone SOD SUC 40 MG/1 ML VIAL IV SCH ×2 (05:16→15:01)
[2018-03-31] MEDS: PIPERACILLIN/TAZOBACTAM 3,375 MG in SODIUM CHLORIDE 0.9% 100 ML IV SCH ×2 (05:17→17:12)
[2018-03-31 05:42] LABS: Basophils % 0.1 % (0.0-0.8); Eosinophils % 0.1 % (0.00-10.9); Hematocrit 35.8 VOL% (42.0-52.0); Hemoglobin 12.1 GM/DL (14.0-18.0); Immature Granulocytes % 2.3 %; Immature Granulocytes Absolute 0.32 #; Lymphocytes # 1.1 10*3/uL (1.4-4.0); Lymphocytes % 7.8 % (21.2-54.2); Mean Corpuscular HGB Conc 33.8 GM/DL (32-36); Mean Corpuscular Hemoglobin 32 PG (27-34); Mean Corpuscular Volume 93.7 FL (87-102); Mean Platelet Volume 10.8 FL (9.6-12.0); Monocytes # 0.6 10*3/uL (0.11-0.8); Monocytes % 4.1 % (1.7-12.7); Neutrophils % 85.6 % (38.7-73.9); Platelet Count 178 T/CUMM (130-400); Red Blood Count 3.82 MC/CUMM (3.8-5.5); White Blood Count 14.1 T/CUMM (4-12)
[2018-03-31 06:05] LABS: Calcium 9.8 MG/DL (8.5-10.1); Osmolality,Calculated 287.5 MOS/KG (273-304); Potassium 3.4 MMOL/L (3.5-5.1)
[2018-03-31 06:34] LABS: Lymphocytes 11 % (20-55); Nucleated Red Blood Cells 1 (0-5); Segmented Neutrophils 85 % (50-85); Total Cells Counted 100
[2018-03-31 06:35] LABS: Hypochromasia 1+; Microcytosis Slight
[2018-03-31 06:36] LABS: Platelet Estimate Adequate
[2018-03-31] MEDS ORDERED: POTASSIUM CHLORIDE 20 MEQ TABLET PO ONE (07:54)
[2018-03-31] MEDS: CARVEDILOL 6.25 MG TABLET PO SCH ×2 (09:39→21:46)
[2018-03-31] MEDS: DILTIAZEM CD 180 MG CAPSULE PO SCH (09:39)
[2018-03-31] MEDS: AMIODARONE 200 MG TABLET PO SCH (09:39)
[2018-03-31] MEDS: ASPIRIN EC 325 MG TABLET PO SCH (09:39)
[2018-03-31] MEDS: PARoxetine 20 MG TABLET PO SCH ×2 (09:39→21:47)
[2018-03-31] MEDS: POTASSIUM CHLORIDE 20 MEQ TABLET PO SCH ×2 (09:39→21:47)
[2018-03-31] MEDS: clonazePAM 0.5 MG TABLET PO SCH ×3 (09:39→21:46)
[2018-03-31] MEDS: FINASTERIDE 5 MG TABLET PO SCH (09:39)
[2018-03-31] MEDS: ALLOPURINOL 300 MG TABLET PO SCH (09:39)
[2018-03-31] MEDS: FAMOTIDINE 20 MG TABLET PO SCH ×2 (09:39→21:46)
[2018-03-31] MEDS: BUDESONIDE 0.5 MG/2 ML NEB RESP TX SCH ×2 (13:00→19:40)
[2018-03-31] MEDS: ARFORMOTEROL 15 MCG/2 ML NEB RESP TX SCH ×2 (13:00→19:40)
[2018-03-31] MEDS: ATORVASTATIN 40 MG TABLET PO SCH (21:47)
[2018-03-31] MEDS: TAMSULOSIN 0.4 MG CAPSULE PO SCH (21:47)
[2018-04-01] MEDS: ALBUTEROL/IPRATROPIUM 3 ML NEB RESP TX SCH ×3 (01:31→13:14)
[2018-04-01] MEDS: LEVOFLOXACIN INJ 750 MG in PREMIX 1 EACH IV SCH (03:53)
[2018-04-01] MEDS: methylPREDNISolone SOD SUC 40 MG/1 ML VIAL IV SCH (03:55)
[2018-04-01] MEDS: PIPERACILLIN/TAZOBACTAM 3,375 MG in SODIUM CHLORIDE 0.9% 100 ML IV SCH (06:30)
[2018-04-01] MEDS: ARFORMOTEROL 15 MCG/2 ML NEB RESP TX SCH (07:19)
[2018-04-01] MEDS: BUDESONIDE 0.5 MG/2 ML NEB RESP TX SCH (07:19)
[2018-04-01] MEDS: ALLOPURINOL 300 MG TABLET PO SCH (10:12)
[2018-04-01] MEDS: clonazePAM 0.5 MG TABLET PO SCH ×2 (10:12→14:03)
[2018-04-01] MEDS: AMIODARONE 200 MG TABLET PO SCH (10:13)
[2018-04-01] MEDS: ASPIRIN EC 325 MG TABLET PO SCH (10:13)
[2018-04-01] MEDS: FINASTERIDE 5 MG TABLET PO SCH (10:13)
[2018-04-01] MEDS: DILTIAZEM CD 180 MG CAPSULE PO SCH (10:13)
[2018-04-01] MEDS: FAMOTIDINE 20 MG TABLET PO SCH (10:13)
[2018-04-01] MEDS: PARoxetine 20 MG TABLET PO SCH (10:13)
[2018-04-01] MEDS: CARVEDILOL 6.25 MG TABLET PO SCH (10:13)
[2018-04-01] MEDS: POTASSIUM CHLORIDE 20 MEQ TABLET PO SCH (10:13)
[2018-04-01 17:48] VITALS: BP 131/78
== END 2018-04-01 15:30 | disposition home health service (06) | DRG 193 ==
LOC: N.ED 19:04 → N.EDINP 03-28 01:04 → N.ICU 03-28 01:27 → N.5E 03-28 14:18
PROVIDERS: ADMIT Internal Medicine; ATTEND Internal Medicine

== ENCOUNTER 2018-04-11 11:26 | Inpatient (IN) ==
[2018-04-11] MEDS ORDERED: ALBUTEROL 2.5 MG/3 ML NEB RESP TX STA (12:17)
[2018-04-11] MEDS ORDERED: methylPREDNISolone SOD SUC 40 MG/1 ML VIAL IV STA (12:17)
[2018-04-11 13:54] LABS: Basophils % 0.1 % (0.0-0.8); Hematocrit 46.9 VOL% (42.0-52.0); Hemoglobin 16.3 GM/DL (14.0-18.0); Immature Granulocytes % 0.6 %; Immature Granulocytes Absolute 0.09 #; Lymphocytes # 0.8 10*3/uL (1.4-4.0); Mean Corpuscular HGB Conc 34.8 GM/DL (32-36); Mean Corpuscular Hemoglobin 32 PG (27-34); Mean Corpuscular Volume 91.6 FL (87-102); Mean Platelet Volume 12.8 FL (9.6-12.0); Monocytes # 1.3 10*3/uL (0.11-0.8); Monocytes % 8.1 % (1.7-12.7); Neutrophils # 13.3 10*3/uL (1.4-7.4); Neutrophils % 86.2 % (38.7-73.9); Platelet Count 81 T/CUMM (130-400); Red Blood Count 5.12 MC/CUMM (3.8-5.5); Red Cell Distribution Width 14.3 % (9.3-17.3); White Blood Count 15.4 T/CUMM (4-12)
[2018-04-11 14:04] LABS: INR 0.9; Partial Thromboplastin Time 23.4 SECS (0-40)
[2018-04-11 14:07] LABS: Calcium 9.9 MG/DL (8.5-10.1); Osmolality,Calculated 302.7 MOS/KG (273-304); Potassium 2.9 MMOL/L (3.5-5.1)
[2018-04-11] MEDS ORDERED: SODIUM CHLORIDE 0.9% 1,000 ML IV STA (14:42)
[2018-04-11] MEDS ORDERED: ONDANSETRON 4 MG/2 ML VIAL IV PRN (16:10)
[2018-04-11] MEDS ORDERED: ACETAMINOPHEN 325 MG TABLET PO PRN (16:10)
[2018-04-11] MEDS: ALBUTEROL/IPRATROPIUM 3 ML NEB RESP TX SCH (19:36)
[2018-04-11] MEDS ORDERED: NYSTATIN 500,000 UNIT/5 ML UDCUP SWISH/SWAL SCH (21:00)
[2018-04-11] MEDS: clonazePAM 0.5 MG TABLET PO SCH (22:46)
[2018-04-11] MEDS: POTASSIUM CHLORIDE 20 MEQ TABLET PO PRN (22:47)
[2018-04-11] MEDS: methylPREDNISolone SOD SUC 40 MG/1 ML VIAL IV SCH (22:47)
[2018-04-12] MEDS: ALBUTEROL/IPRATROPIUM 3 ML NEB RESP TX SCH ×4 (00:27→19:37)
[2018-04-12] MEDS: POTASSIUM CHLORIDE 20 MEQ TABLET PO PRN ×4 (01:18→09:09)
[2018-04-12] MEDS: methylPREDNISolone SOD SUC 40 MG/1 ML VIAL IV SCH ×3 (05:50→21:00)
[2018-04-12 05:55] LABS: Basophils % 0.1 % (0.0-0.8); Hematocrit 42.4 VOL% (42.0-52.0); Hemoglobin 14.4 GM/DL (14.0-18.0); Immature Granulocytes % 0.7 %; Immature Granulocytes Absolute 0.09 #; Lymphocytes # 0.5 10*3/uL (1.4-4.0); Lymphocytes % 3.6 % (21.2-54.2); Mean Corpuscular Hemoglobin 31 PG (27-34); Mean Corpuscular Volume 91.4 FL (87-102); Mean Platelet Volume 12.7 FL (9.6-12.0); Monocytes # 0.5 10*3/uL (0.11-0.8); Neutrophils # 11.6 10*3/uL (1.4-7.4); Neutrophils % 91.6 % (38.7-73.9); Platelet Count 94 T/CUMM (130-400); Red Blood Count 4.64 MC/CUMM (3.8-5.5); Red Cell Distribution Width 14.4 % (9.3-17.3); White Blood Count 12.7 T/CUMM (4-12)
[2018-04-12 06:28] LABS: Calcium 9.4 MG/DL (8.5-10.1); Osmolality,Calculated 307.2 MOS/KG (273-304); Potassium 2.7 MMOL/L (3.5-5.1); Thyroid Stimulating Hormone 0.044 uIU/ml (0.358-3.74)
[2018-04-12 06:32] LABS: Lymphocytes 5 % (20-55); Platelet Estimate Decreased; Segmented Neutrophils 95 % (50-85); Total Cells Counted 100
[2018-04-12] MEDS: clonazePAM 0.5 MG TABLET PO SCH ×3 (09:09→20:59)
[2018-04-12] MEDS: PANTOPRAZOLE 40 MG TABLET PO SCH (09:09)
[2018-04-12] MEDS ORDERED: SODIUM CHLORIDE 0.9% 1,000 ML IV SCH (10:00)
[2018-04-12] MEDS: NYSTATIN 500,000 UNIT/5 ML UDCUP SWISH/SWAL SCH ×4 (11:31→21:14)
[2018-04-12] MEDS: POTASSIUM CHLORIDE RIDER 10 MEQ in PREMIX 1 EACH IV PRN ×4 (11:31→21:05)
[2018-04-12] MEDS: INDACATEROL IH SCH ×2 (12:34→21:05)
[2018-04-12] MEDS: GLYCOPYRROLATE IH SCH ×2 (12:34→21:05)
[2018-04-12 15:05] LABS: Apearance,Urine CLEAR (Clear); Bilirubin,Urine Negative (Negative); Blood, Urine Negative (Negative); Glucose,Urine (UA) Negative (Negative); Hyaline Casts,Urine 3 /LPF (0-3); Ketones,Urine Negative (Negative); Mucus,Urine Occasional /LPF (Occasional); Nitrite,Urine Negative (Negative); Protein,Urine Negative; RBC,Urine <1 /HPF (0-4); Squamous Epithelial Cell,Urine Occasional /HPF (0-10); Urine Color Straw (Yellow); Urine Urobilinogen < 2.0 EU/DL (0.2-1.0); WBC,Urine <1 /HPF (0-6)
[2018-04-12] MEDS ORDERED: BISACODYL 5 MG TABLET PO ONE (16:24)
[2018-04-12] MEDS: CARVEDILOL 6.25 MG TABLET PO SCH (20:59)
[2018-04-12] MEDS: TAMSULOSIN 0.4 MG CAPSULE PO SCH (20:59)
[2018-04-12] MEDS: ATORVASTATIN 40 MG TABLET PO SCH (20:59)
[2018-04-12] MEDS: MAGNESIUM CHLORIDE 64 MG TABLET PO SCH (20:59)
[2018-04-12] MEDS: PARoxetine 20 MG TABLET PO SCH (21:00)
[2018-04-13] MEDS: ALBUTEROL/IPRATROPIUM 3 ML NEB RESP TX SCH ×4 (00:06→20:17)
[2018-04-13] MEDS: POTASSIUM CHLORIDE RIDER 10 MEQ in PREMIX 1 EACH IV PRN ×6 (00:52→18:07)
[2018-04-13] MEDS: methylPREDNISolone SOD SUC 40 MG/1 ML VIAL IV SCH ×3 (04:54→21:01)
[2018-04-13 05:17] LABS: Basophils % 0.2 % (0.0-0.8); Hematocrit 41.5 VOL% (42.0-52.0); Hemoglobin 14.6 GM/DL (14.0-18.0); Immature Granulocytes % 0.7 %; Immature Granulocytes Absolute 0.09 #; Lymphocytes # 0.4 10*3/uL (1.4-4.0); Lymphocytes % 3.5 % (21.2-54.2); Mean Corpuscular HGB Conc 35.2 GM/DL (32-36); Mean Corpuscular Hemoglobin 32 PG (27-34); Mean Corpuscular Volume 91.4 FL (87-102); Mean Platelet Volume 12.7 FL (9.6-12.0); Monocytes # 0.5 10*3/uL (0.11-0.8); Monocytes % 3.6 % (1.7-12.7); Neutrophils # 11.6 10*3/uL (1.4-7.4); Platelet Count 82 T/CUMM (130-400); Red Blood Count 4.54 MC/CUMM (3.8-5.5); Red Cell Distribution Width 14.3 % (9.3-17.3); White Blood Count 12.6 T/CUMM (4-12)
[2018-04-13 05:33] LABS: Calcium 9.6 MG/DL (8.5-10.1); Osmolality,Calculated 309.1 MOS/KG (273-304)
[2018-04-13 06:36] LABS: Lymphocytes 5 % (20-55); Segmented Neutrophils 90 % (50-85); Total Cells Counted 100
[2018-04-13 06:37] LABS: Anisocytosis 1+; Platelet Estimate Decreased; Target Cells Few
[2018-04-13] MEDS ORDERED: Fluticasone/Umeclidin/Vilanter [Trelegy Ellipta 100-62.5-25] IH SCH (09:00)
[2018-04-13] MEDS: PARoxetine 20 MG TABLET PO SCH ×2 (09:11→21:02)
[2018-04-13] MEDS: FINASTERIDE 5 MG TABLET PO SCH (09:11)
[2018-04-13] MEDS: ALLOPURINOL 300 MG TABLET PO SCH (09:11)
[2018-04-13] MEDS: clonazePAM 0.5 MG TABLET PO SCH ×3 (09:11→21:02)
[2018-04-13] MEDS: AMIODARONE 200 MG TABLET PO SCH (09:11)
[2018-04-13] MEDS: MAGNESIUM CHLORIDE 64 MG TABLET PO SCH ×2 (09:11→21:02)
[2018-04-13] MEDS: INDACATEROL IH SCH (09:12)
[2018-04-13] MEDS: PANTOPRAZOLE 40 MG TABLET PO SCH (09:12)
[2018-04-13] MEDS: ASPIRIN EC 325 MG TABLET PO SCH (09:12)
[2018-04-13] MEDS: DILTIAZEM CD 180 MG CAPSULE PO SCH (09:12)
[2018-04-13] MEDS: GLYCOPYRROLATE IH SCH (09:12)
[2018-04-13] MEDS: CARVEDILOL 6.25 MG TABLET PO SCH ×2 (09:13→21:01)
[2018-04-13] MEDS: NYSTATIN 500,000 UNIT/5 ML UDCUP SWISH/SWAL SCH ×4 (10:57→21:00)
[2018-04-13] MEDS: FLUCONAZOLE 200 MG TABLET PO SCH (12:21)
[2018-04-13] MEDS: POLYETHYLENE GLYCOL POWDER 17 GM PACK PO SCH (12:21)
[2018-04-13] MEDS: ATORVASTATIN 40 MG TABLET PO SCH (21:01)
[2018-04-13] MEDS: TAMSULOSIN 0.4 MG CAPSULE PO SCH (21:01)
[2018-04-13] MEDS: BUDESONIDE/FORMOTEROL 160-4.5 INHALER 6 GM INH SCH (21:02)
[2018-04-14 01:38] LABS: Basophils % 0.1 % (0.0-0.8); Hematocrit 42.1 VOL% (42.0-52.0); Hemoglobin 14.5 GM/DL (14.0-18.0); Immature Granulocytes % 0.5 %; Immature Granulocytes Absolute 0.05 #; Lymphocytes # 0.4 10*3/uL (1.4-4.0); Lymphocytes % 4.1 % (21.2-54.2); Mean Corpuscular HGB Conc 34.4 GM/DL (32-36); Mean Corpuscular Hemoglobin 32 PG (27-34); Mean Corpuscular Volume 92.5 FL (87-102); Mean Platelet Volume 13.3 FL (9.6-12.0); Monocytes # 0.5 10*3/uL (0.11-0.8); Monocytes % 4.8 % (1.7-12.7); Neutrophils # 8.9 10*3/uL (1.4-7.4); Neutrophils % 90.5 % (38.7-73.9); Platelet Count 66 T/CUMM (130-400); Red Blood Count 4.55 MC/CUMM (3.8-5.5); Red Cell Distribution Width 14.4 % (9.3-17.3); White Blood Count 9.8 T/CUMM (4-12)
[2018-04-14 01:56] LABS: Calcium 9.4 MG/DL (8.5-10.1); Osmolality,Calculated 309.1 MOS/KG (273-304); Potassium 3.6 MMOL/L (3.5-5.1)
[2018-04-14] MEDS: ALBUTEROL/IPRATROPIUM 3 ML NEB RESP TX SCH ×4 (02:02→19:42)
[2018-04-14 02:20] LABS: Band Neutrophils 1 % (0-10); Lymphocytes 6 % (20-55); Nucleated Red Blood Cells 1 (0-5); Segmented Neutrophils 92 % (50-85)
[2018-04-14 02:23] LABS: Ovalocytes 1+; Platelet Estimate Decreased; Polychromasia Few
[2018-04-14 02:24] LABS: Total Cells Counted 100
[2018-04-14] MEDS: methylPREDNISolone SOD SUC 40 MG/1 ML VIAL IV SCH ×3 (06:12→21:48)
[2018-04-14] MEDS: POTASSIUM CHLORIDE RIDER 10 MEQ in PREMIX 1 EACH IV PRN (06:13)
[2018-04-14] MEDS: BUDESONIDE/FORMOTEROL 160-4.5 INHALER 6 GM INH SCH ×2 (09:00→21:49)
[2018-04-14] MEDS ORDERED: LACTULOSE 20 GM/30 ML UDCUP PO ONE (12:03)
[2018-04-14] MEDS: clonazePAM 0.5 MG TABLET PO SCH ×3 (13:32→21:47)
[2018-04-14] MEDS: NYSTATIN 500,000 UNIT/5 ML UDCUP SWISH/SWAL SCH ×4 (13:33→21:49)
[2018-04-14] MEDS: CARVEDILOL 6.25 MG TABLET PO SCH ×2 (13:42→21:48)
[2018-04-14] MEDS: DILTIAZEM CD 180 MG CAPSULE PO SCH (13:42)
[2018-04-14] MEDS: POLYETHYLENE GLYCOL POWDER 17 GM PACK PO SCH (13:42)
[2018-04-14] MEDS: FINASTERIDE 5 MG TABLET PO SCH (13:42)
[2018-04-14] MEDS: AMIODARONE 200 MG TABLET PO SCH (13:42)
[2018-04-14] MEDS: ASPIRIN EC 325 MG TABLET PO SCH (13:42)
[2018-04-14] MEDS: PARoxetine 20 MG TABLET PO SCH ×2 (13:43→21:48)
[2018-04-14] MEDS: FLUCONAZOLE 200 MG TABLET PO SCH (13:43)
[2018-04-14] MEDS: PANTOPRAZOLE 40 MG TABLET PO SCH (13:43)
[2018-04-14] MEDS: ALLOPURINOL 300 MG TABLET PO SCH (13:43)
[2018-04-14] MEDS: MAGNESIUM CHLORIDE 64 MG TABLET PO SCH ×2 (13:43→21:48)
[2018-04-14] MEDS: TAMSULOSIN 0.4 MG CAPSULE PO SCH (21:47)
[2018-04-14] MEDS: ATORVASTATIN 40 MG TABLET PO SCH (21:48)
[2018-04-15] MEDS: ALBUTEROL/IPRATROPIUM 3 ML NEB RESP TX SCH ×4 (00:40→19:18)
[2018-04-15] MEDS: methylPREDNISolone SOD SUC 40 MG/1 ML VIAL IV SCH ×3 (05:07→18:05)
[2018-04-15 06:47] LABS: Basophils % 0.1 % (0.0-0.8); Hematocrit 45.8 VOL% (42.0-52.0); Hemoglobin 15.5 GM/DL (14.0-18.0); Immature Granulocytes % 0.5 %; Immature Granulocytes Absolute 0.04 #; Lymphocytes # 0.4 10*3/uL (1.4-4.0); Lymphocytes % 4.3 % (21.2-54.2); Mean Corpuscular HGB Conc 33.8 GM/DL (32-36); Mean Corpuscular Hemoglobin 32 PG (27-34); Mean Corpuscular Volume 93.1 FL (87-102); Mean Platelet Volume 13.6 FL (9.6-12.0); Monocytes # 0.5 10*3/uL (0.11-0.8); Monocytes % 5.6 % (1.7-12.7); Neutrophils # 7.7 10*3/uL (1.4-7.4); Neutrophils % 89.5 % (38.7-73.9); Platelet Count 87 T/CUMM (130-400); Red Blood Count 4.92 MC/CUMM (3.8-5.5); Red Cell Distribution Width 14.6 % (9.3-17.3); White Blood Count 8.6 T/CUMM (4-12)
[2018-04-15 07:13] LABS: Calcium 9.8 MG/DL (8.5-10.1); Osmolality,Calculated 314.8 MOS/KG (273-304); Potassium 3.6 MMOL/L (3.5-5.1)
[2018-04-15 07:15] LABS: Band Neutrophils 1 % (0-10); Hypochromasia 1+; Lymphocytes 2 % (20-55); Platelet Estimate Decreased; Segmented Neutrophils 94 % (50-85); Total Cells Counted 100
[2018-04-15] MEDS ORDERED: MIDAZOLAM 2 MG/2 ML VIAL ONE ×2 (09:00→13:24)
[2018-04-15] MEDS ORDERED: SODIUM CHLORIDE 0.9% 1,000 ML IV SCH (12:30)
[2018-04-15] MEDS: DOXYCYCLINE HYCLATE INJ 100 MG in SODIUM CHLORIDE 0.9% 100 ML IV SCH ×2 (14:52→21:49)
[2018-04-15] MEDS: FLUCONAZOLE 200 MG TABLET PO SCH (15:21)
[2018-04-15] MEDS: AMIODARONE 200 MG TABLET PO SCH (15:22)
[2018-04-15] MEDS: DILTIAZEM CD 180 MG CAPSULE PO SCH (15:22)
[2018-04-15] MEDS: ASPIRIN EC 325 MG TABLET PO SCH (15:22)
[2018-04-15] MEDS: PARoxetine 20 MG TABLET PO SCH ×2 (15:23→21:38)
[2018-04-15] MEDS: POLYETHYLENE GLYCOL POWDER 17 GM PACK PO SCH (15:23)
[2018-04-15] MEDS: CARVEDILOL 6.25 MG TABLET PO SCH ×2 (15:23→21:38)
[2018-04-15] MEDS: FINASTERIDE 5 MG TABLET PO SCH (15:24)
[2018-04-15] MEDS: MAGNESIUM CHLORIDE 64 MG TABLET PO SCH ×2 (15:24→21:38)
[2018-04-15] MEDS: PANTOPRAZOLE 40 MG TABLET PO SCH (15:24)
[2018-04-15] MEDS: ALLOPURINOL 300 MG TABLET PO SCH (15:24)
[2018-04-15] MEDS: BUDESONIDE/FORMOTEROL 160-4.5 INHALER 6 GM INH SCH (15:24)
[2018-04-15] MEDS: NYSTATIN 500,000 UNIT/5 ML UDCUP SWISH/SWAL SCH ×2 (15:25→15:58)
[2018-04-15] MEDS: clonazePAM 0.5 MG TABLET PO SCH ×3 (15:25→21:38)
[2018-04-15] MEDS: ARFORMOTEROL 15 MCG/2 ML NEB RESP TX SCH (19:18)
[2018-04-15] MEDS: TAMSULOSIN 0.4 MG CAPSULE PO SCH (21:38)
[2018-04-15] MEDS: ATORVASTATIN 40 MG TABLET PO SCH (21:38)
[2018-04-15] MEDS: CLOTRIMAZOLE 10 MG TROCHE PO SCH (21:42)
[2018-04-16] MEDS: ALBUTEROL/IPRATROPIUM 3 ML NEB RESP TX SCH ×4 (01:05→19:39)
[2018-04-16] MEDS: methylPREDNISolone SOD SUC 40 MG/1 ML VIAL IV SCH ×3 (04:58→17:03)
[2018-04-16 05:46] LABS: Basophils % 0.2 % (0.0-0.8); Hematocrit 41.5 VOL% (42.0-52.0); Hemoglobin 13.8 GM/DL (14.0-18.0); Immature Granulocytes % 0.6 %; Immature Granulocytes Absolute 0.04 #; Lymphocytes # 0.3 10*3/uL (1.4-4.0); Lymphocytes % 4.7 % (21.2-54.2); Mean Corpuscular HGB Conc 33.3 GM/DL (32-36); Mean Corpuscular Hemoglobin 31 PG (27-34); Mean Corpuscular Volume 93.7 FL (87-102); Mean Platelet Volume 13.6 FL (9.6-12.0); Monocytes # 0.3 10*3/uL (0.11-0.8); Monocytes % 4.9 % (1.7-12.7); Neutrophils # 5.9 10*3/uL (1.4-7.4); Neutrophils % 89.6 % (38.7-73.9); Platelet Count 70 T/CUMM (130-400); Red Blood Count 4.43 MC/CUMM (3.8-5.5); Red Cell Distribution Width 14.6 % (9.3-17.3); White Blood Count 6.6 T/CUMM (4-12)
[2018-04-16 06:21] LABS: Band Neutrophils 4 % (0-10); Hypochromasia 1+; Lymphocytes 4 % (20-55); Platelet Estimate Decreased; Segmented Neutrophils 87 % (50-85); Total Cells Counted 100
[2018-04-16 06:37] LABS: Calcium 9.4 MG/DL (8.5-10.1); Potassium 2.7 MMOL/L (3.5-5.1)
[2018-04-16] MEDS: ARFORMOTEROL 15 MCG/2 ML NEB RESP TX SCH ×2 (07:18→19:39)
[2018-04-16] MEDS: DOXYCYCLINE HYCLATE INJ 100 MG in SODIUM CHLORIDE 0.9% 100 ML IV SCH ×2 (09:21→22:31)
[2018-04-16] MEDS: ASPIRIN EC 325 MG TABLET PO SCH (09:22)
[2018-04-16] MEDS: FLUCONAZOLE 200 MG TABLET PO SCH (09:22)
[2018-04-16] MEDS: DILTIAZEM CD 180 MG CAPSULE PO SCH (09:22)
[2018-04-16] MEDS: ALLOPURINOL 300 MG TABLET PO SCH (09:22)
[2018-04-16] MEDS: AMIODARONE 200 MG TABLET PO SCH (09:22)
[2018-04-16] MEDS: CARVEDILOL 6.25 MG TABLET PO SCH ×2 (09:22→22:47)
[2018-04-16] MEDS: FINASTERIDE 5 MG TABLET PO SCH (09:22)
[2018-04-16] MEDS: clonazePAM 0.5 MG TABLET PO SCH ×3 (09:22→22:30)
[2018-04-16] MEDS: MAGNESIUM CHLORIDE 64 MG TABLET PO SCH (09:22)
[2018-04-16] MEDS: PARoxetine 20 MG TABLET PO SCH ×2 (09:23→22:31)
[2018-04-16] MEDS: POTASSIUM CHLORIDE 20 MEQ TABLET PO PRN ×2 (09:23→14:47)
[2018-04-16] MEDS: PANTOPRAZOLE 40 MG TABLET PO SCH ×2 (09:23→22:31)
[2018-04-16] MEDS: CLOTRIMAZOLE 10 MG TROCHE PO SCH ×4 (09:23→22:31)
[2018-04-16] MEDS: POLYETHYLENE GLYCOL POWDER 17 GM PACK PO SCH (09:23)
[2018-04-16] MEDS: POTASSIUM CHLORIDE RIDER 10 MEQ in PREMIX 1 EACH IV PRN ×5 (14:46→19:35)
[2018-04-16] MEDS: BACITRACIN OINT 0.9 GM PACK TOP SCH (16:20)
[2018-04-16] MEDS: ATORVASTATIN 40 MG TABLET PO SCH (22:31)
[2018-04-16] MEDS: TAMSULOSIN 0.4 MG CAPSULE PO SCH (22:31)
[2018-04-17] MEDS: ALBUTEROL/IPRATROPIUM 3 ML NEB RESP TX SCH ×4 (00:36→20:16)
[2018-04-17] MEDS: methylPREDNISolone SOD SUC 40 MG/1 ML VIAL IV SCH ×2 (06:23→16:34)
[2018-04-17] MEDS: ARFORMOTEROL 15 MCG/2 ML NEB RESP TX SCH ×2 (08:05→20:16)
[2018-04-17] MEDS: ASPIRIN EC 325 MG TABLET PO SCH (08:43)
[2018-04-17] MEDS: POLYETHYLENE GLYCOL POWDER 17 GM PACK PO SCH (08:43)
[2018-04-17] MEDS: clonazePAM 0.5 MG TABLET PO SCH ×3 (08:44→22:05)
[2018-04-17] MEDS: PARoxetine 20 MG TABLET PO SCH ×2 (08:44→22:05)
[2018-04-17] MEDS: CARVEDILOL 6.25 MG TABLET PO SCH ×2 (08:45→22:05)
[2018-04-17] MEDS: PANTOPRAZOLE 40 MG TABLET PO SCH ×2 (08:45→22:05)
[2018-04-17] MEDS: AMIODARONE 200 MG TABLET PO SCH (08:47)
[2018-04-17] MEDS: FINASTERIDE 5 MG TABLET PO SCH (08:47)
[2018-04-17] MEDS: DILTIAZEM CD 180 MG CAPSULE PO SCH (08:49)
[2018-04-17] MEDS: FLUCONAZOLE 200 MG TABLET PO SCH (08:50)
[2018-04-17] MEDS: BACITRACIN OINT 0.9 GM PACK TOP SCH (08:50)
[2018-04-17] MEDS: CLOTRIMAZOLE 10 MG TROCHE PO SCH ×4 (08:50→22:05)
[2018-04-17] MEDS: ALLOPURINOL 300 MG TABLET PO SCH (08:50)
[2018-04-17] MEDS: MAGNESIUM CHLORIDE 64 MG TABLET PO SCH (08:50)
[2018-04-17] MEDS: DOXYCYCLINE HYCLATE INJ 100 MG in SODIUM CHLORIDE 0.9% 100 ML IV SCH ×2 (08:56→22:06)
[2018-04-17] MEDS ORDERED: valACYclovir 500 MG TABLET PO SCH (21:00)
[2018-04-17] MEDS: ATORVASTATIN 40 MG TABLET PO SCH (22:05)
[2018-04-17] MEDS: TAMSULOSIN 0.4 MG CAPSULE PO SCH (22:05)
[2018-04-18] MEDS: ALBUTEROL/IPRATROPIUM 3 ML NEB RESP TX SCH ×3 (01:01→14:52)
[2018-04-18] MEDS: methylPREDNISolone SOD SUC 40 MG/1 ML VIAL IV SCH (04:49)
[2018-04-18 06:16] LABS: Calcium 9.6 MG/DL (8.5-10.1); Osmolality,Calculated 317.3 MOS/KG (273-304); Potassium 3.7 MMOL/L (3.5-5.1)
[2018-04-18] MEDS ORDERED: FLUCONAZOLE 200 MG TABLET PO SCH (07:09)
[2018-04-18] MEDS: ARFORMOTEROL 15 MCG/2 ML NEB RESP TX SCH (07:50)
[2018-04-18] MEDS ORDERED: valACYclovir 500 MG TABLET PO SCH (09:00)
[2018-04-18] MEDS: clonazePAM 0.5 MG TABLET PO SCH ×2 (10:25→15:26)
[2018-04-18] MEDS: MAGNESIUM CHLORIDE 64 MG TABLET PO SCH (10:25)
[2018-04-18] MEDS: AMIODARONE 200 MG TABLET PO SCH (10:25)
[2018-04-18] MEDS: ALLOPURINOL 300 MG TABLET PO SCH (10:25)
[2018-04-18] MEDS: PARoxetine 20 MG TABLET PO SCH (10:25)
[2018-04-18] MEDS: POLYETHYLENE GLYCOL POWDER 17 GM PACK PO SCH (10:26)
[2018-04-18] MEDS: FINASTERIDE 5 MG TABLET PO SCH (10:26)
[2018-04-18] MEDS: PANTOPRAZOLE 40 MG TABLET PO SCH (10:26)
[2018-04-18] MEDS: ASPIRIN EC 325 MG TABLET PO SCH (10:26)
[2018-04-18] MEDS: DILTIAZEM CD 180 MG CAPSULE PO SCH (10:26)
[2018-04-18] MEDS: CARVEDILOL 6.25 MG TABLET PO SCH (10:26)
[2018-04-18] MEDS: DOXYCYCLINE HYCLATE INJ 100 MG in SODIUM CHLORIDE 0.9% 100 ML IV SCH (10:39)
[2018-04-18] MEDS ORDERED: NICOTINE 21 MG/24 HR PATCH TRANSDERM SCH (15:30)
[2018-04-18 16:06] VITALS: BP 123/72
== END 2018-04-18 18:10 | disposition swing bed (61) | DRG 683 ==
LOC: N.ED 11:26 → SUATTDRO 16:08 → N.EDINP 16:08 → N.5E 16:59
PROVIDERS: ADMIT Internal Medicine; ATTEND Hospitalist

== ENCOUNTER 2018-05-03 14:55 | Inpatient (IN) ==
[2018-05-03] MEDS ORDERED: ONDANSETRON 4 MG/2 ML VIAL IV PRN (17:03)
[2018-05-03] MEDS ORDERED: ACETAMINOPHEN 325 MG TABLET PO PRN (17:03)
[2018-05-03] MEDS ORDERED: LACTULOSE 20 GM/30 ML UDCUP PO PRN (17:03)
[2018-05-03] MEDS ORDERED: PHENYLEPHRINE DRIP 40 MG/250 ML PREMIX IV SCH (17:30)
[2018-05-03 18:26] LABS: ABG HCO3 18.1 MMOL/L (20-26); ABG Oxygen Saturation 96.1 % (95-100); ABG PCO2 24.7 MM HG (35-48); ABG PH 7.482 (7.35-7.45); ABG TCO2 18.8 MMOL/L (23-27)
[2018-05-03 19:10] LABS: Basophils % 0.2 % (0.0-0.8); Hematocrit 29.9 VOL% (42.0-52.0); Hemoglobin 10.3 GM/DL (14.0-18.0); Immature Granulocytes Absolute 0.46 #; Lymphocytes # 0.4 10*3/uL (1.4-4.0); Lymphocytes % 10.6 % (21.2-54.2); Mean Corpuscular HGB Conc 34.4 GM/DL (32-36); Mean Corpuscular Hemoglobin 32 PG (27-34); Mean Corpuscular Volume 91.7 FL (87-102); Mean Platelet Volume 12.6 FL (9.6-12.0); Monocytes # 0.4 10*3/uL (0.11-0.8); Monocytes % 9.8 % (1.7-12.7); NRBC # 0.02 10*3/uL; Neutrophils # 2.9 10*3/uL (1.4-7.4); Neutrophils % 68.4 % (38.7-73.9); Platelet Count 88 T/CUMM (130-400); Red Blood Count 3.26 MC/CUMM (3.8-5.5); Red Cell Distribution Width 15.8 % (9.3-17.3); White Blood Count 4.2 T/CUMM (4-12)
[2018-05-03 19:20] LABS: Apearance,Urine CLEAR (Clear); Bilirubin,Urine Negative (Negative); Blood, Urine Moderate mg/dL (Negative); Glucose,Urine (UA) Negative (Negative); Hyaline Casts,Urine 7 /LPF (0-3); Ketones,Urine Negative (Negative); Mucus,Urine Occasional /LPF (Occasional); Nitrite,Urine Negative (Negative); Protein,Urine 30 MG/DL; RBC,Urine 11 /HPF (0-4); Squamous Epithelial Cell,Urine Occasional /HPF (0-10); Urine Specific Gravity 1.019 (1.001-1.035); WBC,Urine 4 /HPF (0-6)
[2018-05-03 19:20] LABS: INR 1.2; PT Patient Result 12.9 SECS
[2018-05-03 19:23] LABS: Urine Color Yellow (Yellow)
[2018-05-03 19:33] LABS: Albumin 1.5 G/DL (3.4-5.0); Bilirubin,Total 0.8 MG/DL (0.2-1.0); Calcium 7.5 MG/DL (8.5-10.1); Osmolality,Calculated 269.8 MOS/KG (273-304); Potassium 3.6 MMOL/L (3.5-5.1); Total Protein 4.1 G/DL (6.4-8.3)
[2018-05-03 19:37] LABS: Band Neutrophils 5 % (0-10); Lymphocytes 9 % (20-55); Nucleated Red Blood Cells 1 (0-5); Segmented Neutrophils 78 % (50-85); Total Cells Counted 100
[2018-05-03 19:38] LABS: Hypochromasia Slight; Macrocytosis Slight; Platelet Estimate Decreased; Polychromasia Slight
[2018-05-03 19:39] LABS: Thyroid Stimulating Hormone 1.09 uIU/ml (0.358-3.74)
[2018-05-03] MEDS: ALBUTEROL/IPRATROPIUM 3 ML NEB RESP TX SCH (19:41)
[2018-05-03] MEDS: FUROSEMIDE 20 MG/2 ML VIAL IV SCH (19:56)
[2018-05-03] MEDS: FAMOTIDINE 20 MG/2 ML VIAL IV SCH (19:58)
[2018-05-03] MEDS: HYDROCORTISONE 100 MG VIAL IV SCH (19:59)
[2018-05-03] MEDS ORDERED: valACYclovir 500 MG TABLET PO SCH (21:00)
[2018-05-03] MEDS: BUDESONIDE/FORMOTEROL 160-4.5 INHALER 6 GM INH SCH (21:14)
[2018-05-03] MEDS: PARoxetine 20 MG TABLET PO SCH (21:14)
[2018-05-03] MEDS: ATORVASTATIN 40 MG TABLET PO SCH (21:14)
[2018-05-03] MEDS: NOREPINEPHRINE 8 MG in SODIUM CHLORIDE 0.9% 242 ML IV PRN (21:39)
[2018-05-04] MEDS: ALBUTEROL/IPRATROPIUM 3 ML NEB RESP TX SCH ×4 (00:38→20:02)
[2018-05-04] MEDS: HYDROCORTISONE 100 MG VIAL IV SCH ×4 (02:47→21:34)
[2018-05-04 05:30] LABS: Basophils % 0.3 % (0.0-0.8); Hematocrit 30.9 VOL% (42.0-52.0); Hemoglobin 10.6 GM/DL (14.0-18.0); Immature Granulocytes % 6.8 %; Immature Granulocytes Absolute 0.27 #; Lymphocytes # 0.4 10*3/uL (1.4-4.0); Lymphocytes % 10.6 % (21.2-54.2); Mean Corpuscular HGB Conc 34.3 GM/DL (32-36); Mean Corpuscular Hemoglobin 32 PG (27-34); Mean Corpuscular Volume 92.2 FL (87-102); Mean Platelet Volume 12.2 FL (9.6-12.0); Monocytes # 0.4 10*3/uL (0.11-0.8); Monocytes % 10.4 % (1.7-12.7); NRBC # 0.02 10*3/uL; Neutrophils # 2.9 10*3/uL (1.4-7.4); Neutrophils % 71.9 % (38.7-73.9); Red Blood Count 3.35 MC/CUMM (3.8-5.5); Red Cell Distribution Width 15.7 % (9.3-17.3)
[2018-05-04 05:36] LABS: Platelet Count 81 T/CUMM (130-400)
[2018-05-04 05:48] LABS: Calcium 7.6 MG/DL (8.5-10.1); Osmolality,Calculated 271.7 MOS/KG (273-304); Potassium 3.3 MMOL/L (3.5-5.1); Risk Ratio 3.55; VLDL CHOLESTEROL 24.2 MG/DL
[2018-05-04 06:02] LABS: Hypochromasia 1+; Lymphocytes 7 % (20-55); Ovalocytes Slight; Platelet Estimate Decreased; Segmented Neutrophils 86 % (50-85); Total Cells Counted 100
[2018-05-04 06:03] LABS: Macrocytosis Slight
[2018-05-04] MEDS: FAMOTIDINE 20 MG/2 ML VIAL IV SCH ×2 (06:30→16:30)
[2018-05-04] MEDS: PARoxetine 20 MG TABLET PO SCH ×2 (08:57→21:34)
[2018-05-04] MEDS: ASPIRIN 325 MG TABLET PO SCH (08:57)
[2018-05-04] MEDS: POLYETHYLENE GLYCOL POWDER 17 GM PACK PO SCH (08:58)
[2018-05-04] MEDS ORDERED: FLUCONAZOLE 100 MG TABLET PO SCH (09:00)
[2018-05-04] MEDS: BUDESONIDE/FORMOTEROL 160-4.5 INHALER 6 GM INH SCH ×2 (09:01→21:36)
[2018-05-04] MEDS: FUROSEMIDE 20 MG/2 ML VIAL IV SCH ×2 (09:01→15:37)
[2018-05-04] MEDS: POTASSIUM CHLORIDE 20 MEQ TABLET PO SCH ×2 (17:12→21:34)
[2018-05-04] MEDS: ARFORMOTEROL 15 MCG/2 ML NEB RESP TX SCH (20:02)
[2018-05-04] MEDS: ATORVASTATIN 40 MG TABLET PO SCH (21:34)
[2018-05-04] MEDS: TAMSULOSIN 0.4 MG CAPSULE PO SCH (21:34)
[2018-05-04] MEDS: valACYclovir 500 MG TABLET PO SCH (21:34)
[2018-05-04] MEDS: LUBIPROSTONE 24 MCG CAPSULE PO SCH (21:34)
[2018-05-05] MEDS: POTASSIUM CHLORIDE 20 MEQ TABLET PO SCH (00:50)
[2018-05-05] MEDS: HYDROCORTISONE 100 MG VIAL IV SCH ×4 (01:00→21:48)
[2018-05-05] MEDS: ALBUTEROL/IPRATROPIUM 3 ML NEB RESP TX SCH ×4 (01:23→19:14)
[2018-05-05] MEDS: FAMOTIDINE 20 MG/2 ML VIAL IV SCH (05:40)
[2018-05-05 06:13] LABS: Basophils % 0.4 % (0.0-0.8); Hematocrit 32.9 VOL% (42.0-52.0); Hemoglobin 11.1 GM/DL (14.0-18.0); Immature Granulocytes % 2.9 %; Immature Granulocytes Absolute 0.14 #; Lymphocytes # 0.4 10*3/uL (1.4-4.0); Mean Corpuscular HGB Conc 33.7 GM/DL (32-36); Mean Corpuscular Hemoglobin 31 PG (27-34); Mean Corpuscular Volume 91.4 FL (87-102); Mean Platelet Volume 11.6 FL (9.6-12.0); Monocytes # 0.4 10*3/uL (0.11-0.8); Monocytes % 8.6 % (1.7-12.7); NRBC # 0.06 10*3/uL; Neutrophils # 3.9 10*3/uL (1.4-7.4); Neutrophils % 80.1 % (38.7-73.9); Platelet Count 84 T/CUMM (130-400); Red Cell Distribution Width 15.9 % (9.3-17.3); White Blood Count 4.9 T/CUMM (4-12)
[2018-05-05 06:21] LABS: Calcium 7.6 MG/DL (8.5-10.1); Osmolality,Calculated 273.8 MOS/KG (273-304)
[2018-05-05 06:42] LABS: Band Neutrophils 4 % (0-10); Lymphocytes 4 % (20-55); Nucleated Red Blood Cells 11 (0-5); Platelet Estimate Decreased; Segmented Neutrophils 88 % (50-85); Total Cells Counted 100
[2018-05-05 06:44] LABS: Anisocytosis Slight; Burr Cells Few; Macrocytosis Slight; Ovalocytes Few
[2018-05-05] MEDS: ARFORMOTEROL 15 MCG/2 ML NEB RESP TX SCH ×2 (06:50→19:14)
[2018-05-05] MEDS ORDERED: FLUCONAZOLE 100 MG TABLET PO SCH (09:00)
[2018-05-05] MEDS: AMIODARONE 200 MG TABLET PO SCH (09:29)
[2018-05-05] MEDS: DUTASTERIDE 0.5 MG CAPSULE PO SCH (09:29)
[2018-05-05] MEDS: ASPIRIN 325 MG TABLET PO SCH (09:29)
[2018-05-05] MEDS: FUROSEMIDE 20 MG/2 ML VIAL IV SCH ×2 (09:29→17:41)
[2018-05-05] MEDS: ALLOPURINOL 300 MG TABLET PO SCH (09:29)
[2018-05-05] MEDS: PARoxetine 20 MG TABLET PO SCH ×2 (09:29→21:48)
[2018-05-05] MEDS: LUBIPROSTONE 24 MCG CAPSULE PO SCH ×2 (09:29→21:48)
[2018-05-05] MEDS: BUDESONIDE/FORMOTEROL 160-4.5 INHALER 6 GM INH SCH ×2 (09:31→22:05)
[2018-05-05] MEDS ORDERED: VANCOMYCIN INJ 1,000 MG in SODIUM CHLORIDE 0.9% 250 ML IV PRN (09:33)
[2018-05-05] MEDS: POLYETHYLENE GLYCOL POWDER 17 GM PACK PO SCH (09:50)
[2018-05-05] MEDS: valACYclovir 500 MG TABLET PO SCH (10:05)
[2018-05-05] MEDS ORDERED: SODIUM CHLORIDE 0.9% 1,000 ML IV ONE (10:14)
[2018-05-05] MEDS: VANCOMYCIN INJ 1,250 MG in SODIUM CHLORIDE 0.9% 250 ML IV ONE ×2 (10:14→11:05)
[2018-05-05] MEDS: TAMSULOSIN 0.4 MG CAPSULE PO SCH (21:48)
[2018-05-05] MEDS: ATORVASTATIN 40 MG TABLET PO SCH (21:48)
[2018-05-06] MEDS: ALBUTEROL/IPRATROPIUM 3 ML NEB RESP TX SCH ×4 (00:24→19:48)
[2018-05-06] MEDS: HYDROCORTISONE 100 MG VIAL IV SCH ×4 (04:00→21:22)
[2018-05-06 04:55] LABS: Basophils % 0.3 % (0.0-0.8); Hemoglobin 11.1 GM/DL (14.0-18.0); Immature Granulocytes Absolute 0.34 #; Lymphocytes # 0.5 10*3/uL (1.4-4.0); Lymphocytes % 7.2 % (21.2-54.2); Mean Corpuscular HGB Conc 33.6 GM/DL (32-36); Mean Corpuscular Hemoglobin 32 PG (27-34); Mean Corpuscular Volume 93.8 FL (87-102); Mean Platelet Volume 12.3 FL (9.6-12.0); Monocytes # 0.9 10*3/uL (0.11-0.8); Monocytes % 12.5 % (1.7-12.7); NRBC # 0.05 10*3/uL; Neutrophils # 5.1 10*3/uL (1.4-7.4); Red Blood Count 3.52 MC/CUMM (3.8-5.5); Red Cell Distribution Width 16.6 % (9.3-17.3); White Blood Count 6.8 T/CUMM (4-12)
[2018-05-06 05:00] LABS: Platelet Count 93 T/CUMM (130-400)
[2018-05-06 05:17] LABS: Band Neutrophils 1 % (0-10); Hypochromasia 1+; Lymphocytes 9 % (20-55); Macrocytosis Slight; Ovalocytes Slight; Platelet Estimate Decreased; Segmented Neutrophils 82 % (50-85); Total Cells Counted 100
[2018-05-06 05:19] LABS: Calcium 7.7 MG/DL (8.5-10.1); Osmolality,Calculated 281.4 MOS/KG (273-304)
[2018-05-06] MEDS: NOREPINEPHRINE 8 MG in SODIUM CHLORIDE 0.9% 242 ML IV PRN (05:50)
[2018-05-06] MEDS: ARFORMOTEROL 15 MCG/2 ML NEB RESP TX SCH ×2 (07:23→19:48)
[2018-05-06] MEDS: FAMOTIDINE 20 MG/2 ML VIAL IV SCH (07:34)
[2018-05-06] MEDS: LUBIPROSTONE 24 MCG CAPSULE PO SCH ×2 (09:47→21:26)
[2018-05-06] MEDS: ALLOPURINOL 300 MG TABLET PO SCH (09:47)
[2018-05-06] MEDS: ASPIRIN 325 MG TABLET PO SCH (09:47)
[2018-05-06] MEDS: PARoxetine 20 MG TABLET PO SCH ×2 (09:47→21:27)
[2018-05-06] MEDS: AMIODARONE 200 MG TABLET PO SCH (09:47)
[2018-05-06] MEDS: DUTASTERIDE 0.5 MG CAPSULE PO SCH (09:47)
[2018-05-06] MEDS: BUDESONIDE/FORMOTEROL 160-4.5 INHALER 6 GM INH SCH ×2 (09:48→21:27)
[2018-05-06] MEDS: POLYETHYLENE GLYCOL POWDER 17 GM PACK PO SCH (09:49)
[2018-05-06] MEDS: FUROSEMIDE 20 MG/2 ML VIAL IV SCH ×2 (09:52→15:35)
[2018-05-06] MEDS ORDERED: SODIUM CHLORIDE 0.9% 500 ML IV ONE (10:58)
[2018-05-06] MEDS: SODIUM CHLORIDE 0.9% 1,000 ML IV SCH (14:20)
[2018-05-06] MEDS: clonazePAM 0.5 MG TABLET PO SCH ×2 (15:35→21:27)
[2018-05-06] MEDS: TAMSULOSIN 0.4 MG CAPSULE PO SCH (21:26)
[2018-05-06] MEDS: ATORVASTATIN 40 MG TABLET PO SCH (21:27)
[2018-05-07] MEDS: SODIUM CHLORIDE 0.9% 1,000 ML IV SCH ×2 (00:25→09:35)
[2018-05-07] MEDS: ALBUTEROL/IPRATROPIUM 3 ML NEB RESP TX SCH ×3 (01:09→13:30)
[2018-05-07] MEDS: HYDROCORTISONE 100 MG VIAL IV SCH ×2 (01:56→09:43)
[2018-05-07 05:05] LABS: Basophils % 0.1 % (0.0-0.8); Hematocrit 31.4 VOL% (42.0-52.0); Hemoglobin 10.8 GM/DL (14.0-18.0); Immature Granulocytes % 9.2 %; Lymphocytes # 0.4 10*3/uL (1.4-4.0); Lymphocytes % 5.3 % (21.2-54.2); Mean Corpuscular HGB Conc 34.4 GM/DL (32-36); Mean Corpuscular Hemoglobin 32 PG (27-34); Mean Corpuscular Volume 93.7 FL (87-102); Mean Platelet Volume 12.9 FL (9.6-12.0); Monocytes # 0.9 10*3/uL (0.11-0.8); Monocytes % 11.3 % (1.7-12.7); NRBC # 0.06 10*3/uL; Neutrophils # 5.6 10*3/uL (1.4-7.4); Neutrophils % 74.1 % (38.7-73.9); Red Blood Count 3.35 MC/CUMM (3.8-5.5); Red Cell Distribution Width 16.7 % (9.3-17.3); White Blood Count 7.6 T/CUMM (4-12)
[2018-05-07 05:12] LABS: Platelet Count 78 T/CUMM (130-400)
[2018-05-07 05:27] LABS: Band Neutrophils 1 % (0-10); Burr Cells Slight; Calcium 7.5 MG/DL (8.5-10.1); Hypochromasia 1+; Lymphocytes 7 % (20-55); Osmolality,Calculated 288.8 MOS/KG (273-304); Ovalocytes Slight; Platelet Estimate Decreased; Potassium 3.2 MMOL/L (3.5-5.1); Segmented Neutrophils 84 % (50-85); Total Cells Counted 100
[2018-05-07] MEDS: FAMOTIDINE 20 MG/2 ML VIAL IV SCH (06:32)
[2018-05-07] MEDS ORDERED: PROPOFOL 200 MG/20 ML VIAL IV ONE (07:37)
[2018-05-07] MEDS ORDERED: PHENYLEPHRINE 1 MG/10 ML SYRINGE IV ONE (07:38)
[2018-05-07] MEDS: ARFORMOTEROL 15 MCG/2 ML NEB RESP TX SCH (07:40)
[2018-05-07] MEDS ORDERED: VANCOMYCIN INJ 1,250 MG in SODIUM CHLORIDE 0.9% 250 ML IV ONE (08:30)
[2018-05-07] MEDS: ALLOPURINOL 300 MG TABLET PO SCH (09:43)
[2018-05-07] MEDS: ASPIRIN 325 MG TABLET PO SCH (09:43)
[2018-05-07] MEDS: DUTASTERIDE 0.5 MG CAPSULE PO SCH (09:43)
[2018-05-07] MEDS: clonazePAM 0.5 MG TABLET PO SCH ×2 (09:44→16:00)
[2018-05-07] MEDS: LUBIPROSTONE 24 MCG CAPSULE PO SCH (09:44)
[2018-05-07] MEDS: POLYETHYLENE GLYCOL POWDER 17 GM PACK PO SCH (09:44)
[2018-05-07] MEDS: AMIODARONE 200 MG TABLET PO SCH (09:47)
[2018-05-07] MEDS: FUROSEMIDE 20 MG/2 ML VIAL IV SCH ×2 (09:50→16:00)
[2018-05-07] MEDS: PARoxetine 20 MG TABLET PO SCH (09:51)
[2018-05-07] MEDS: BUDESONIDE/FORMOTEROL 160-4.5 INHALER 6 GM INH SCH (09:51)
[2018-05-07] MEDS ORDERED: POTASSIUM CHLORIDE 20 MEQ TABLET PO ONE (10:00)
[2018-05-07 11:10] LABS: Ferritin 1175.7 ng/ml (26-388)
[2018-05-07 13:43] VITALS: BP 96/55
[2018-05-07] MEDS ORDERED: HYDROCORTISONE 100 MG VIAL IV SCH (16:00)
[2018-05-08 07:50] LABS: Creatinine,Urine Random 26 MG/DL; Total Protein,Urine Random 13 MG/DL; Urea Nitrogen, Urine Random 325 MG/DL
== END 2018-05-07 16:45 | DRG 871 ==
LOC: SUPCPDRO 16:34 → SUATTDRO 16:34 → N.CC 16:34
PROVIDERS: ADMIT Internal Medicine; ATTEND Internal Medicine